=== PATIENT | male | born 1960 | race Two or more races ===

== ENCOUNTER → 2020-04-23 15:19 | Outpatient (BNVA) | payer MEDICARE, MEDICAID, SELFPAY | PROVIDERS: PCP Internal Medicine; Referring Provider Internal Medicine; Visit Provider Surgery | DX: Z76.89 Persons encountering health services in other specified circumstances (principal) ==

== ENCOUNTER 2020-05-19 16:01 | Outpatient (REF) | payer MEDICARE, MEDICAID, SELFPAY ==
[2020-05-19 16:33] LABS: MANUAL DIFF FLAG NO
[2020-05-19 16:39] LABS: Basophils Absolute Auto 0.1 X10*3/uL (0.0-0.2); Basophils Percent Auto 1.2 % (0-2); Eosinophils Absolute Auto 0.7 X10*3/uL (0.0-0.4); Eosinophils Percent Auto 7.8 % (0-4); Hematocrit 40.2 % (42-52); Hemoglobin 13.4 g/dl (14.0-18.0); Imm Gran Abs Auto 0.03 X10*3/uL (0.00-0.03); Imm Gran Pct Auto 0.4 % (0.0-0.4); Lymphocytes Absolute Auto 2.5 X10*3/uL (1.2-4.9); Lymphocytes Percent Auto 30.2 % (20-40); Mean Corpuscular HGB Conc 33.3 g/dl (31.0-36.0); Mean Corpuscular Hemoglobin 29.4 pg (27.0-33.0); Mean Corpuscular Volume 88.2 fL (80-98); Mean Platelet Volume 10.6 fL (9.4-12.4); Monocytes Absolute Auto 0.6 X10*3/uL (0.1-1.2); Monocytes Percent Auto 7.5 % (2-11); Neutrophils Absolute Auto 4.4 X10*3/uL (2.0-8.3); Neutrophils Percent Auto 52.9 % (45-73); Platelet Count 241 X10*3/uL (160-400); Red Blood Count 4.56 X10*6/uL (4.60-5.80); Red Cell Distribution Width 11.3 % (11.0-16.0); White Blood Count 8.4 X10*3/uL (4.8-10.8)
[2020-05-19 17:02] LABS: Anion Gap 11 (12-20); Blood Urea Nitrogen 10 mg/dL (9-16); Calcium 9.8 mg/dL (8.4-10.2); Carbon Dioxide 28 mmol/L (22-29); Chloride 104 mmol/L (96-108); Estimated Glomerular Filt Rate > 60; Glucose Random 98 mg/dL (60-115); Potassium 4.3 mmol/l (3.3-5.1); Sodium 139 mmol/L (135-145)
== END 2020-05-19 16:02 | disposition home or self-care (01) ==
LOC: HO.LAB 16:01
PROVIDERS: PCP Internal Medicine; Visit Provider Internal Medicine
DX: R51.9 Headache, unspecified (principal)
CPT/HCPCS: 36415; 80048; 85025

== ENCOUNTER 2021-01-15 08:22 | Outpatient (REF) | payer MEDICARE, MEDICAID, SELFPAY ==
[2021-01-15 09:13] LABS: MANUAL DIFF FLAG NO
[2021-01-15 09:19] LABS: Basophils Absolute Auto 0.1 X10*3/uL (0.0-0.2); Basophils Percent Auto 1.5 % (0-2); Eosinophils Absolute Auto 0.7 X10*3/uL (0.0-0.4); Eosinophils Percent Auto 10.3 % (0-4); Hematocrit 38.8 % (42-52); Hemoglobin 13.3 g/dl (14.0-18.0); Imm Gran Abs Auto 0.03 X10*3/uL (0.00-0.03); Imm Gran Pct Auto 0.4 % (0.0-0.4); Lymphocytes Absolute Auto 2.2 X10*3/uL (1.2-4.9); Mean Corpuscular HGB Conc 34.3 g/dl (31.0-36.0); Mean Corpuscular Volume 87.4 fL (80-98); Monocytes Absolute Auto 0.5 X10*3/uL (0.1-1.2); Monocytes Percent Auto 7.9 % (2-11); Neutrophils Absolute Auto 3.1 X10*3/uL (2.0-8.3); Neutrophils Percent Auto 46.9 % (45-73); Platelet Count 238 X10*3/uL (160-400); Red Blood Count 4.44 X10*6/uL (4.60-5.80); Red Cell Distribution Width 11.4 % (11.0-16.0); White Blood Count 6.7 X10*3/uL (4.8-10.8)
[2021-01-15 09:36] LABS: Alanine Aminotransferase 16 U/L (0-40); Albumin Level 4.5 g/dL (3.5-5.0); Alkaline Phosphatase 69 U/L (39-117); Anion Gap 11 (12-20); Aspartate Amino Transferase 21 U/L (5-37); Bilirubin Total 0.5 mg/dL (0.0-1.0); Blood Urea Nitrogen 12 mg/dL (9-16); Calcium 10.1 mg/dL (8.4-10.2); Carbon Dioxide 27 mmol/L (22-29); Chloride 105 mmol/L (96-108); Cholesterol 210 mg/dL; Estimated Glomerular Filt Rate > 60; Glucose Fasting 107 mg/dL (60-99); HDL Cholesterol 44 mg/dL; LDL Cholesterol Calculated 138 mg/dl; Potassium 4.7 mmol/L (3.3-5.1); Sodium 138 mmol/L (135-145); Total Protein 7.5 g/dL (6.5-8.0); Triglycerides 142 mg/dL
[2021-01-15 09:58] LABS: Thyroid Stimulating Hormone 0.25 uIU/mL (0.32-4.0)
[2021-01-15 10:07] LABS: Erythrocyte Sedimentation Rate 12 MM/HR (0-15)
== END 2021-01-15 08:23 | disposition home or self-care (01) ==
LOC: HO.LAB 08:22
PROVIDERS: PCP Internal Medicine; Visit Provider Internal Medicine
DX: Z00.00 Encounter for general adult medical examination without abnormal findings (principal); E03.9 Hypothyroidism, unspecified; R53.83 Other fatigue; E11.9 Type 2 diabetes mellitus without complications
CPT/HCPCS: 36415; 80053; 80061; 84443; 85025; 85652

== ENCOUNTER 2021-03-16 10:14 | Outpatient (REF) | payer MEDICARE, MEDICAID, SELFPAY ==
[2021-03-16 12:02] LABS: Prostate Specific Antigen 0.57 ng/mL (<0.05-4.0)
== END 2021-03-16 10:15 | disposition home or self-care (01) ==
LOC: HO.LAB 10:14
PROVIDERS: PCP Internal Medicine; Visit Provider Nurse Practitioner Family
DX: Z12.5 Encounter for screening for malignant neoplasm of prostate (principal)
CPT/HCPCS: 36415; 84153

== ENCOUNTER 2021-03-22 11:51 | Outpatient (REF) | payer MEDICARE, MEDICAID, SELFPAY ==
--- NOTE | ~2021-03-22 | XR_ITS ---
EXAMINATION: XR KNEE, RIGHT XR KNEE, LEFT CLINICAL INFORMATION: Right and left knee pain. COMPARISON: Bilateral knee radiographs dated 08/17/2018. TECHNIQUE: AP and lateral views of the right and left knee. FINDINGS: Right knee: Mild medial compartment joint space narrowing. Tiny lateral compartment marginal osteophytes. No osseous erosion. No fracture or dislocation. No significant joint effusion. Left knee: Mild medial compartment joint space narrowing. Tiny patellofemoral and lateral compartment marginal osteophytes. No osseous erosion. No fracture or dislocation. No significant joint effusion. XR/XR knee LT 2V IMPRESSION: Right knee: Mild medial and lateral compartment osteoarthritis, unchanged. Left knee: Mild tricompartmental osteoarthritis, unchanged.
--- NOTE | ~2021-03-22 | XR_ITS ---
EXAMINATION: XR KNEE, RIGHT XR KNEE, LEFT CLINICAL INFORMATION: Right and left knee pain. COMPARISON: Bilateral knee radiographs dated 08/17/2018. TECHNIQUE: AP and lateral views of the right and left knee. FINDINGS: Right knee: Mild medial compartment joint space narrowing. Tiny lateral compartment marginal osteophytes. No osseous erosion. No fracture or dislocation. No significant joint effusion. Left knee: Mild medial compartment joint space narrowing. Tiny patellofemoral and lateral compartment marginal osteophytes. No osseous erosion. No fracture or dislocation. No significant joint effusion. XR/XR knee RT 2V IMPRESSION: Right knee: Mild medial and lateral compartment osteoarthritis, unchanged. Left knee: Mild tricompartmental osteoarthritis, unchanged.
== END 2021-03-22 11:52 | disposition home or self-care (01) ==
LOC: HO.XRAY 11:51
PROVIDERS: PCP Internal Medicine; Visit Provider Internal Medicine
DX: M25.561 Pain in right knee (principal); M25.562 Pain in left knee
CPT/HCPCS: 73560

== ENCOUNTER → 2021-04-20 14:57 | Outpatient (BNVA) | payer MEDICARE, MEDICAID, SELFPAY | PROVIDERS: PCP Internal Medicine; Visit Provider Nurse Practitioner Family ==

== ENCOUNTER → 2021-05-19 14:56 | Outpatient (BNVA) | payer MEDICARE, MEDICAID, SELFPAY | PROVIDERS: PCP Internal Medicine; Referring Provider Internal Medicine; Visit Provider Nurse Practitioner Family | DX: K59.04 Chronic idiopathic constipation (principal); K21.9 Gastro-esophageal reflux disease without esophagitis; R10.32 Left lower quadrant pain | CPT/HCPCS: 99212 ==

== ENCOUNTER → 2021-08-18 15:13 | Outpatient (BNVA) | payer MEDICARE, MEDICAID, SELFPAY | PROVIDERS: PCP Internal Medicine; Referring Provider Internal Medicine; Visit Provider Nurse Practitioner Family | DX: K21.9 Gastro-esophageal reflux disease without esophagitis (principal); K58.9 Irritable bowel syndrome, unspecified; R10.32 Left lower quadrant pain | CPT/HCPCS: 99212 ==

== ENCOUNTER 2021-08-23 15:05 | Outpatient (REF) | payer MEDICARE, MEDICAID, SELFPAY ==
--- NOTE | ~2021-08-23 | XR_ITS ---
EXAMINATION: XR SHOULDER, RIGHT CLINICAL INFORMATION: Pain COMPARISON: Previous x-ray August 2013 TECHNIQUE: AP external rotation, Grashey, scapular Y, and axillary views of the right shoulder. FINDINGS: Bone alignment is normal. No fracture or dislocation is seen. The glenohumeral joint is normal. There is arthritis at the acromial clavicular joint. Soft tissues are normal. XR/XR shoulder RT min 2V IMPRESSION: Arthritis at the acromioclavicular joint.
== END 2021-08-23 15:06 | disposition home or self-care (01) ==
LOC: HO.XRAY 15:05
PROVIDERS: PCP Internal Medicine; Visit Provider Internal Medicine
DX: M25.511 Pain in right shoulder (principal)
CPT/HCPCS: 73030

== ENCOUNTER 2021-11-29 15:07 | Outpatient (REF) | payer MEDICARE, MEDICAID, SELFPAY ==
--- NOTE | ~2021-11-29 | XR_ITS ---
EXAMINATION: XR SHOULDER, LEFT CLINICAL INFORMATION: Pain. COMPARISON: None TECHNIQUE: AP external rotation, Grashey, scapular Y, and axillary views of the left shoulder. FINDINGS: The left glenohumeral joint space is maintained normal. There is mild loss of left AC joint space without bony erosive changes. There are no loose bodies or soft tissue swelling. XR/XR shoulder LT min 2V IMPRESSION: Mild degenerative changes left AC joint. No visible acute fracture or dislocation.
== END 2021-11-29 15:08 | disposition home or self-care (01) ==
LOC: HO.XRAY 15:07
PROVIDERS: PCP Internal Medicine; Visit Provider Nurse Practitioner Acute Care
DX: M25.512 Pain in left shoulder (principal)
CPT/HCPCS: 73030

== ENCOUNTER 2021-12-21 16:06 | Outpatient (REF) | payer MEDICARE, MEDICAID, SELFPAY ==
[2021-12-21 17:46] LABS: Alanine Aminotransferase 14 U/L (0-40); Albumin Level 4.4 g/dL (3.5-5.0); Alkaline Phosphatase 73 U/L (39-117); Anion Gap 12 (12-20); Aspartate Amino Transferase 18 U/L (5-37); Bilirubin Total 0.6 mg/dL (0.0-1.0); Blood Urea Nitrogen 7 mg/dL (9-16); Calcium 10.2 mg/dL (8.4-10.2); Carbon Dioxide 25 mmol/L (22-29); Chloride 107 mmol/L (96-108); Cholesterol 194 mg/dL; Estimated Glomerular Filt Rate > 60; Glucose Fasting 82 mg/dL (60-99); HDL Cholesterol 41 mg/dL; LDL Cholesterol Calculated 118 mg/dl; Potassium 4.2 mmol/L (3.3-5.1); Sodium 140 mmol/L (135-145); Total Protein 7.9 g/dL (6.5-8.0); Triglycerides 176 mg/dL
[2021-12-21 18:24] LABS: Folate 5.5 ng/mL (> or = 4.0); Vitamin B12 346 pg/mL (200-900)
[2021-12-21 18:58] LABS: Free T4 (Free Thyroxine) 1.02 ng/dL (0.71-1.85)
== END 2021-12-21 16:07 | disposition home or self-care (01) ==
LOC: HO.LAB 16:06
PROVIDERS: PCP Internal Medicine; Visit Provider Nurse Practitioner Family
DX: J45.909 Unspecified asthma, uncomplicated (principal); Z13.1 Encounter for screening for diabetes mellitus; Z13.220 Encounter for screening for lipoid disorders; Z13.29 Encounter for screening for other suspected endocrine disorder; E55.9 Vitamin D deficiency, unspecified; R94.6 Abnormal results of thyroid function studies
CPT/HCPCS: 36415; 80053; 80061; 82306; 82607; 82746; 84439; 84443

== ENCOUNTER → 2021-12-24 14:41 | Outpatient (BNVA) | payer MEDICARE, MEDICAID, SELFPAY | PROVIDERS: PCP Internal Medicine; Visit Provider Nurse Practitioner Family | DX: M25.512 Pain in left shoulder (principal); M25.561 Pain in right knee; M25.562 Pain in left knee; M17.0 Bilateral primary osteoarthritis of knee; M19.019 Primary osteoarthritis, unspecified shoulder | CPT/HCPCS: 99202 ==

== ENCOUNTER 2022-01-28 14:42 | Outpatient (REF) | payer MEDICARE, MEDICAID, SELFPAY ==
[2022-01-28 17:03] LABS: Free T4 (Free Thyroxine) 1.02 ng/dL (0.71-1.85); Thyroid Stimulating Hormone 0.29 uIU/mL (0.32-4.0)
[2022-01-30 03:01] LABS: Triiodothyronine T3 Free 3.5 pg/mL (2.3-4.2)
== END 2022-01-28 14:43 | disposition home or self-care (01) ==
LOC: HO.LAB 14:42
PROVIDERS: PCP Internal Medicine; Visit Provider Internal Medicine Endocrinology, Diabetes & Metabolism
DX: R79.89 Other specified abnormal findings of blood chemistry (principal)
CPT/HCPCS: 36415; 84439; 84443; 84481; 99202

== ENCOUNTER → 2022-02-15 13:44 | Outpatient (BNVA) | payer MEDICARE, MEDICAID, SELFPAY | PROVIDERS: PCP Internal Medicine; Referring Provider Internal Medicine; Visit Provider Nurse Practitioner Family | DX: Z12.11 Encounter for screening for malignant neoplasm of colon (principal); K21.9 Gastro-esophageal reflux disease without esophagitis; R10.32 Left lower quadrant pain; D36.9 Benign neoplasm, unspecified site | CPT/HCPCS: 99212 ==

== ENCOUNTER 2022-03-01 11:00 | Outpatient (RCR) | payer MEDICARE, MEDICAID, SELFPAY ==
--- NOTE | 2022-01-14 11:44 | MHC.PT.EP ---
[facility] [place] Office [place] Office [place] Office [address] Shaniqua Calvert [address] [phone] F: [phone] F: [phone] F: [phone] F: [phone] Physical Therapy Plan of Care Date of Evaluation: Date of Surgery: NA Diagnosis: Pain in L shoulder Assessment: Amado is a 61 yo M referred to PT for pain in his left shoulder. Upon examination he presents with signs and symptoms consistent with impingement in his shoulder due to inflammation. He performs all his ADLs with modification but is unable to ride his bike or fish and has difficulty sleeping at night. His impairments include limited ROM, altered GH rhythm and strength in his L shoulder. Amado will benefit from skilled PT to address the aforementioned impairments and receive education on postural awareness. Frequency and Duration: The patient will be seen 2/week for 6 weeks Short Term Goals: Patient will report a 50% decrease in pain to allow him to sleep throughout the night in 3 weeks. Patient will be able to move shoulder through all planes of motion with a pain no more than 2/10 so as to be able to use his UE for dressing in 3 weeks. 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 Treatment Plan: Modalities to reduce pain, spasms and effusion. Manual therapy to restore motion and function. Therapeutic exercise to improve strength and flexibility. Neuromuscular re-education for posture and balance. Therapeutic activities to return to functional activities of daily living. Electronically signed by: Neetu Acosta PT DPT Please sign and return to therapist. Thank you for your referral.
--- NOTE | 2022-03-01 11:51 | MHC.PT.DC ---
[facility] [place] Office [place] Office [place] Office [address] [phone] F: [phone] F: [phone] F: [phone] F: [phone] Physical Therapy Discharge Report Diagnosis: Pain in L shoulder Date of Surgery: NA Date of Evaluation: 01/14/22 Date of Discharge: 03/01/22 Treatments to Date: 11 Cancellations to Date: No Shows to Date: Discharge Status: Achieved Goals Improved Function Independent with HEP Discharge Summary: Amado arrived stating he is doing good. He has completed 11 PT visits. He has been doing all his HEPs. He has improved significantly and has achieved all goals set for him. He is therefore being d/c from PT today. Amado is in agreement with the plan. Electronically signed by: Neetu Acosta PT DPT Please sign and return to therapist. Thank you for your referral.
== END 2022-03-01 11:51 | disposition home or self-care (01) ==
LOC: HO.PT 11:00
PROVIDERS: PCP Dermatology MOHS-Micrographic Surgery; Visit Provider Nurse Practitioner Family
DX: M25.512 Pain in left shoulder (principal)
CPT/HCPCS: 97033; 97110; 97112; 97140; 97161

== ENCOUNTER 2022-03-23 12:04 | Outpatient (REF) | payer MEDICARE, MEDICAID, SELFPAY ==
[2022-03-23 14:35] LABS: Prostate Specific Antigen Scr 0.63 ng/mL (<0.05-4.0)
== END 2022-03-23 12:05 | disposition home or self-care (01) ==
LOC: HO.LAB 12:04
PROVIDERS: PCP Internal Medicine; Visit Provider Internal Medicine
DX: Z12.5 Encounter for screening for malignant neoplasm of prostate (principal)
CPT/HCPCS: 36415; 84153

== ENCOUNTER → 2022-05-09 14:59 | Outpatient (BNVA) | payer MEDICARE, MEDICAID, SELFPAY | PROVIDERS: PCP Internal Medicine; Visit Provider Physician Assistant | DX: M19.012 Primary osteoarthritis, left shoulder (principal) | CPT/HCPCS: 20610; 99202; J1040 ==

== ENCOUNTER → 2022-05-18 09:18 | Outpatient (REF) | payer MEDICARE, MEDICAID, SELFPAY ==
--- NOTE | ~2022-05-18 | NM_ITS ---
EXAMINATION: THYROID UPTAKE AND SCAN CLINICAL INFORMATION: Low TSH. COMPARISON: No previous thyroid scan is available for comparison. TECHNIQUE: Following the oral administration of 303 microcuries of I-123 sodium iodide, thyroid uptake was performed and expressed as a percentage of the administrated dose. Gamma scintillation camera images of the thyroid in the anterior and right and left anterior oblique views were obtained using a pinhole collimator following the administration of 10 mCi Tc-99m pertechnetate. FINDINGS: The uptake is 8.3% at 2 hours and 17.5% at 24 hours (Normal radioiodine uptake at 24 hours is 10% to 30%). The radioiodine uptake is normal. The radiopertechnetate thyroid scintigram demonstrates the thyroid gland to be normal in size, shape, and position. There is homogeneous distribution of activity within the the gland with no focal abnormalities noted. The trapping function appears normal. NM/NM thyroid w uptake IMPRESSION: Normal radioiodine uptake. Normal thyroid scan.
== END ==
LOC: HO.NUCMED 09:18
PROVIDERS: PCP Internal Medicine; Visit Provider Internal Medicine Endocrinology, Diabetes & Metabolism
DX: R79.89 Other specified abnormal findings of blood chemistry (principal)
CPT/HCPCS: 78014; A9512; A9516

== ENCOUNTER 2022-06-14 08:44 | Day surgery (SDC) | payer MEDICARE, MEDICAID, SELFPAY ==
[2022-06-07 12:56] VITALS: BMI 29.1
--- NOTE | 2022-06-13 12:39 | P.CONAN_ITS ---
Documented by User: Jazmin Mccurdy NP 06/13/22 12:39 HPI - Anesthesia Eval Consult details Narrative: 61yo M for Colonoscopy PMFSH Active Problems Active Problems: All Active Problems (Updated 06/07/22 @ 12:42 by Sil Thomas RN) Asthma (Acute) Insomnia (Acute) Sleep apnea (Acute) GERD (gastroesophageal reflux disease) (Acute) Adult general medical exam (Acute) Knee pain (Acute) Abdominal pain (Acute) Shoulder pain (Acute) Tinea corporis (Acute) Left shoulder pain (Acute) Anxiety (Acute) Screening for hypothyroidism (Acute) Screening for hyperlipidemia (Acute) Screening for diabetes mellitus (Acute) Seasonal allergies (Acute) Bilateral knee pain (Acute) Osteoarthritis of knees, bilateral (Acute) Acromioclavicular joint arthritis (Acute) Low TSH level (Acute) Low vitamin D level (Acute) Right rotator cuff tendinitis (Acute) Tubular adenoma (Acute) Screening for prostate cancer (Acute) Depression (Acute) Past Medical History Medical History Asthma Depression Epidermal inclusion cyst Fatigue GERD (gastroesophageal reflux disease) Screening for prostate cancer Sleep apnea Tubular adenoma Family History Family History Father History of hypertension History of heart disease History of diabetes mellitus Mother History of skin cancer Sister History of arthritis History of colon cancer History of breast cancer Mental health disorder Son No problems noted. Daughter No problems noted. Surgical History Surgical History (Updated 06/07/22 @ 12:50 by Sil Thomas RN) History of bunionectomy History of colonoscopy (~05/2011) History of esophagogastroduodenoscopy (EGD) (~05/2011) History of excision of epidermal inclusion cyst (~04/09/20) History of hernia repair (~1990) History of left knee surgery (~04/2016) History of removal of cyst (~04/2019) Social History Social History (Updated 05/09/22 @ 15:24 by ALEXANDRIA Sarabia) Housing: Apartment Alcohol intake: never Patient Tobacco Use Status: Former Tobacco user Quit Date: age 46 Tobacco use type: Cigarette e-Cigarette/Vaping Use: Never Used Second Hand Smoke Exposure: No Use of substances other than those prescribed or required for medical reasons: No Have you been hit, kicked, punched, or otherwise hurt by someone within the past year? If so, by whom?: No Are you DNR?: No Advance Directives: No Advance Directives Information Provided: Yes (brochure mailed) Advance Directives on File: No Recently lost weight without trying: No Eating poorly because of decreased appetite: No Nutrition Risks: No Nutritional Risk service: No Current occupational status: unemployed and disabled Current occupation: left hand Cognitive needs: No Hearing needs: No Vision needs: No Meds Allergies Allergy/AdvReac Type Severity Reaction Status Date / Time Shellfish Allergy Severe ANAPHYLAXIS Verified 05/09/22 15:22 Home Medications Medication Instructions Recorded Confirmed Last Taken Type albuterol sulfate 90 mcg/actuation 2 puff inhalation Q4-6H PRN 04/20/20 06/07/22 Unknown History aerosol inhaler (Ventolin HFA) Wheezing clonazepam 0.5 mg tablet 0.5 mg PO BID 04/20/20 06/07/22 06/14/22 History clonidine HCl 0.2 mg tablet 0.2 - 0.4 mg PO BID 04/20/20 06/07/22 Unknown History omeprazole 20 mg capsule,delayed 20 mg PO BID 12/21/21 06/07/22 Unknown History release quetiapine 400 mg tablet 400 mg PO BID 12/24/21 06/07/22 Unknown History fluoxetine 20 mg capsule 40 mg PO DAILY 02/15/22 06/07/22 Unknown History ipratropium 0.5 mg-albuterol 3 mg 3 ml inhalation QID PRN wheezing 02/15/22 06/07/22 Unknown History (2.5 mg base)/3 mL nebulization soln azithromycin 250 mg tablet 250 mg PO DAILY 05/09/22 Unknown History Exam Exam Date and Time: June 13, 2022 1239 Height,Weight and Vital Signs: Height 5 ft 11 in Weight 94.801 kg Assessment and Plan Assessment Anesthesia Assessment: Chart Reviewed Documented by User: Austin Suggs MD 06/14/22 10:02 [facility] Past Medical History Medical History Asthma Depression Epidermal inclusion cyst Fatigue GERD (gastroesophageal reflux disease) Screening for prostate cancer Sleep apnea Tubular adenoma Family History Family History Father History of hypertension History of heart disease History of diabetes mellitus Mother History of skin cancer Sister History of arthritis History of colon cancer History of breast cancer Mental health disorder Son No problems noted. Daughter No problems noted. Family history of problems with anesthesia: No Surgical History Surgical History (Updated 06/07/22 @ 12:50 by Sil Thomas RN) History of bunionectomy History of colonoscopy (~05/2011) History of esophagogastroduodenoscopy (EGD) (~05/2011) History of excision of epidermal inclusion cyst (~04/09/20) History of hernia repair (~1990) History of left knee surgery (~04/2016) History of removal of cyst (~04/2019) History of Problems with Anesthesia: No Social History Social History (Updated 05/09/22 @ 15:24 by ALEXANDRIA Sarabia) Housing: Apartment Alcohol intake: never Patient Tobacco Use Status: Former Tobacco user Quit Date: age 46 Tobacco use type: Cigarette e-Cigarette/Vaping Use: Never Used Second Hand Smoke Exposure: No Use of substances other than those prescribed or required for medical reasons: No Have you been hit, kicked, punched, or otherwise hurt by someone within the past year? If so, by whom?: No Are you DNR?: No Advance Directives: No Advance Directives Information Provided: Yes (brochure mailed) Advance Directives on File: No Recently lost weight without trying: No Eating poorly because of decreased appetite: No Nutrition Risks: No Nutritional Risk service: No Current occupational status: unemployed and disabled Current occupation: left hand Cognitive needs: No Hearing needs: No Vision needs: No Meds Allergies Allergy/AdvReac Type Severity Reaction Status Date / Time Shellfish Allergy Severe ANAPHYLAXIS Verified 05/09/22 15:22 Home Medications Medication Instructions Recorded Confirmed Last Taken Type albuterol sulfate 90 mcg/actuation 2 puff inhalation Q4-6H PRN 04/20/20 06/07/22 Unknown History aerosol inhaler (Ventolin HFA) Wheezing clonazepam 0.5 mg tablet 0.5 mg PO BID 04/20/20 06/07/22 06/14/22 History clonidine HCl 0.2 mg tablet 0.2 - 0.4 mg PO BID 04/20/20 06/07/22 Unknown History omeprazole 20 mg capsule,delayed 20 mg PO BID 12/21/21 06/07/22 Unknown History release quetiapine 400 mg tablet 400 mg PO BID 12/24/21 06/07/22 Unknown History fluoxetine 20 mg capsule 40 mg PO DAILY 02/15/22 06/07/22 Unknown History ipratropium 0.5 mg-albuterol 3 mg 3 ml inhalation QID PRN wheezing 02/15/22 06/07/22 Unknown History (2.5 mg base)/3 mL nebulization soln azithromycin 250 mg tablet 250 mg PO DAILY 05/09/22 Unknown History Exam Airway Mallampati Class: II TM Dist: >3cm Neck ROM: Full Denture: Upper Partial: Lower Heart: rrr Lungs: clear Assessment and Plan Final Anesthetic Review Family History of Problems with Anesthesia: No History of Problems with Anesthesia: No NPO: Yes ASA Class: II Final Preanesthetic Review: No Changes in Pt Med Stat, Meds/Allgs Chart Reviewed, Consent Obtained/Reviewed and Anes Risks/Benef Reviewed Patient Risk: Intermediate Procedure Risk: Low Anesthetic Plan Anesthetic Plan: MAC: Disposition: Standard PACU
--- NOTE | 2022-06-14 09:06 | P.HPSUR_ITS ---
Pre-Procedural Eval Section A Date of Service: 06/14/22 Section B Chief Complaint: screening colonoscopy Relevant Family History (Specify if Yes): No Relevant Social History: None Present Medications: see Short Stay Collaborative assessment Medical History: Significant History (Asthma Depression Epidermal inclusion cyst Fatigue GERD (gastroesophageal reflux disease) Screening for prostate cancer Sleep apnea Tubular adenoma) History of Previous Operations: Relevant previous surgery/procedure and date(s) (History of bunionectomy History of colonoscopy (~05/2011) History of eso phagogastroduodenoscopy (EGD) (~05/2011) History of excision of epidermal inclusion cyst (~04/09/20) History of hernia repair (~1990) History of left knee surgery (~04/2016) History of removal of cyst (~04/2019)) Allergies: Allergies Allergy/AdvReac Type Severity Reaction Status Date / Time Shellfish Allergy Severe ANAPHYLAXIS Verified 05/09/22 15:22 Review of Systems Sugical H&P ROS: Negative: Constitution, Cardiovascular, Respiratory, Neurological, Psychiatric, Hem-Onc, Allergic/Immunologic, Gastrointestinal, Genitourinary, Musculoskeletal, Integumentary, Endocrine and Eyes/Ears/Nose/Throat Exam Surgical H&P Exam: Normal: HEENT, Normal: Heart, Normal: Lungs, Normal: Extremities, Normal: Abdomen, Normal: Skin and Normal: Neurological Plan Diagnosis/Plan: Unchanged I have reviewed the history and physical and performed a pertinent physical examination on my patient. No changes have occurred unless specified.
[2022-06-14 09:09] VITALS: BP 120/71; PULSE 62; RESP 16; TEMP 36.3; O2SAT 95
[2022-06-14] MEDS: Lactated Ringers 1,000 ML 100 ML IVCONT (09:22)
[2022-06-14] MEDS: Albuterol Sulfate (0.083%) 2.5 MG/3 ML VIAL.NEB INHALE (09:26)
[2022-06-14 09:27] VITALS: PULSE 65; RESP 16; O2SAT 97
--- NOTE | 2022-06-14 09:52 | W.PM.OPN ---
Operative Note Operative Note Date of Service: 06/14/22 Narrative: Operative Information Procedure Description: Colonoscopy Indication: screening Anesthesia: MAC COLONOSCOPY Instrument: Olympus variable stiffness ADULT scope 190L Colonoscopy Monitoring: Vital signs and clinical assessment, continuous EKG monitoring, Pulse oximetry, Carbon Dioxide monitoring and blood pressure monitoring were done throughout the procedure. Colon withdrawal time was 10 minutes. Procedure: The patient was placed in the left lateral decubitis position and pre-procedure medications were administered. After a digital rectal examination of the ano-rectum, the video colonoscope was inserted into the rectum and advanced through the colon to the cecum/TI. The colonoscope was slowly withdrawn in a retrograde panoramic fashion and the colon mucosa was carefully examined including a retroflexed view of the rectum. Findings and interventions are described below. Procedure Difficulty: moderate due to looping, pressure applied Findings: Terminal Ileum-not intubated Cecum:normal Ascending Colon: normal Transverse Colon - x2 sessile polyps 10-11 mm removed with cold snare Descending Colon:normal Sigmoid Colon: diverticulosis with luminal narrowing, and hypertrophy Rectum: Retroflexion with small internal hemorrhoids, grade I Anorectum - normal Colon preparation: Patterson Bowel Preparation Scale Right colon; 1 Transverse colon: 2 Left colon; 1-2 (0 = Unprepared colon segment with mucosa not seen due to solid stool that cannot be cleared. 1 = Portion of mucosa of the colon segment seen, but other areas of the colon segment not well seen due to staining, residual stool and/or opaque liquid. 2 = Minor amount of residual staining, small fragments of stool and/or opaque liquid, but mucosa of colon segment seen well. 3 = Entire mucosa of colon segment seen well with no residual staining, small fragments of stool or opaque liquid) Impression and Post Procedure Diagnosis: polyps internal hemorrhoids diverticular disease Plan: High fiber diet leaflet Avoid straining at stool, epsom salts and sitz bath, anusol supps or cream Repeat Colonoscopy in 3-4 years or earlier if clinically indicated he has been having some left sided abdominal pain, may be due to diverticulosis, advice as above Above findings were reviewed with the patient and relevant handouts were provided if indicated.
[2022-06-14 10:36] VITALS: BP 113/70; PULSE 84; RESP 16; TEMP 36.8; O2SAT 94
[2022-06-14 10:51] VITALS: BP 122/70; PULSE 64; RESP 18; TEMP 36.8; O2SAT 94
== END 2022-06-14 11:29 | disposition home or self-care (01) ==
PROVIDERS: PCP Internal Medicine; Visit Provider Internal Medicine Gastroenterology
PROC: 0DJD8ZZ Inspection of Lower Intestinal Tract, Via Natural or Artificial Opening Endoscopic (ICD-10-PCS; CPT 45378; principal; 2022-06-14 10:20)
DX: Z12.11 Encounter for screening for malignant neoplasm of colon (principal); D12.3 Benign neoplasm of transverse colon; K57.30 Diverticulosis of large intestine without perforation or abscess without bleeding; K56.2 Volvulus; K64.0 First degree hemorrhoids; Z86.010 Personal history of colon polyps; R10.32 Left lower quadrant pain; J45.909 Unspecified asthma, uncomplicated; K58.9 Irritable bowel syndrome, unspecified; K21.9 Gastro-esophageal reflux disease without esophagitis; Z79.899 Other long term (current) drug therapy
CPT/HCPCS: 45385; 88305; 94640

== ENCOUNTER → 2022-06-28 09:48 | Outpatient (BNVA) | payer MEDICARE, MEDICAID, SELFPAY | PROVIDERS: PCP Internal Medicine; Visit Provider Nurse Practitioner Family | DX: D12.3 Benign neoplasm of transverse colon (principal); K57.90 Diverticulosis of intestine, part unspecified, without perforation or abscess without bleeding; K21.9 Gastro-esophageal reflux disease without esophagitis | CPT/HCPCS: 99212 ==

== ENCOUNTER 2022-09-13 10:18 | Outpatient (REF) | payer MEDICARE, MEDICAID, SELFPAY ==
[2022-09-13 10:44] LABS: MANUAL DIFF FLAG NO
[2022-09-13 11:04] LABS: Basophils Absolute Auto 0.1 X10*3/uL (0.0-0.2); Basophils Percent Auto 1.6 % (0-2); Eosinophils Absolute Auto 0.5 X10*3/uL (0.0-0.4); Eosinophils Percent Auto 7.4 % (0-4); Hematocrit 39.9 % (42.0-52.0); Hemoglobin 13.4 g/dl (14.0-18.0); Imm Gran Abs Auto 0.02 X10*3/uL (0.00-0.03); Imm Gran Pct Auto 0.3 % (0.0-0.4); Lymphocytes Absolute Auto 1.8 X10*3/uL (1.2-4.9); Lymphocytes Percent Auto 25.9 % (20-40); Mean Corpuscular HGB Conc 33.6 g/dl (31.0-36.0); Mean Corpuscular Hemoglobin 28.8 pg (27.0-33.0); Mean Corpuscular Volume 85.8 fL (80.0-98.0); Mean Platelet Volume 10.3 fL (9.4-12.4); Monocytes Absolute Auto 0.6 X10*3/uL (0.1-1.2); Neutrophils Absolute Auto 3.9 x10*3/uL (2.0-8.3); Neutrophils Percent Auto 55.8 % (45-73); Platelet Count 255 X10*3/uL (160-400); Red Blood Count 4.65 X10*6/uL (4.60-5.80); Red Cell Distribution Width 11.5 % (11.0-16.0); White Blood Count 6.9 X10*3/uL (4.8-10.8)
[2022-09-13 11:51] LABS: Alanine Aminotransferase 15 U/L (0-40); Albumin Level 4.2 g/dL (3.5-5.0); Alkaline Phosphatase 72 U/L (39-117); Anion Gap 9 (12-20); Aspartate Amino Transferase 17 U/L (5-37); Bilirubin Total 0.6 mg/dL (0.0-1.0); Blood Urea Nitrogen 10 mg/dL (9-16); Calcium 9.9 mg/dL (8.4-10.2); Carbon Dioxide 27 mmol/L (22-29); Chloride 106 mmol/L (96-108); Cholesterol 192 mg/dL; Estimated Glomerular Filt Rate > 60; Glucose Fasting 97 mg/dL (60-99); HDL Cholesterol 36 mg/dL; LDL Cholesterol Calculated 131 mg/dl; Potassium 4.4 mmol/L (3.3-5.1); Sodium 138 mmol/L (135-145); Total Protein 7.4 g/dL (6.5-8.0); Triglycerides 127 mg/dL
[2022-09-13 11:52] LABS: Vitamin D 25-OH Total 30.9 ng/mL (>30)
[2022-09-13 12:10] LABS: Prostate Specific Antigen Scr 0.41 ng/mL (<0.05-4.0); Thyroid Stimulating Hormone 0.25 uIU/mL (0.32-4.0)
== END 2022-09-13 10:19 | disposition home or self-care (01) ==
LOC: HO.LAB 10:18
PROVIDERS: Nurse Practitioner Family; PCP Internal Medicine; Visit Provider Internal Medicine
DX: Z00.00 Encounter for general adult medical examination without abnormal findings (principal); Z12.5 Encounter for screening for malignant neoplasm of prostate; N28.9 Disorder of kidney and ureter, unspecified; D64.9 Anemia, unspecified; E78.5 Hyperlipidemia, unspecified; R79.89 Other specified abnormal findings of blood chemistry; E03.9 Hypothyroidism, unspecified
CPT/HCPCS: 36415; 80053; 80061; 82306; 84153; 84443; 85025

== ENCOUNTER → 2022-09-22 09:32 | Outpatient (BNVA) | payer MEDICARE, MEDICAID, SELFPAY | PROVIDERS: PCP Internal Medicine; Visit Provider Nurse Practitioner Family | DX: N52.9 Male erectile dysfunction, unspecified (principal); R35.1 Nocturia; R68.82 Decreased libido | CPT/HCPCS: 51798; 99202 ==

== ENCOUNTER → 2022-10-18 12:54 | Outpatient (BNVA) | payer MEDICARE, MEDICAID, SELFPAY | PROVIDERS: PCP Internal Medicine; Visit Provider Nurse Practitioner Family | DX: K21.9 Gastro-esophageal reflux disease without esophagitis (principal); K59.01 Slow transit constipation | CPT/HCPCS: 99212 ==

== ENCOUNTER 2022-11-21 10:24 | Outpatient (REF) | payer MEDICARE, MEDICAID, SELFPAY ==
--- NOTE | ~2022-11-21 | US_ITS ---
EXAMINATION: US RETROPERITONEAL COMPLETE (RENAL) CLINICAL INFORMATION: Nocturia. COMPARISON: Ultrasound retroperitoneal limited (renal only) 09/25/2018. TECHNIQUE: Real-time imaging of the kidneys and bladder. FINDINGS: RIGHT KIDNEY: 9.8 x 6.4 x 6.3 cm (SAG x AP x TRV). The kidney is normal in size, contour, and echogenicity. Renal cortical thickness is normal. No renal calculi or hydronephrosis. 2.4 cm benign-appearing renal cyst, no follow-up imaging recommended. LEFT KIDNEY: 10.7 x 6.5 x 6.1 cm (SAG x AP x TRV). The kidney is normal in size, contour, and echogenicity. Renal cortical thickness is normal. No renal calculi or hydronephrosis. Benign appearing renal cysts measuring up to 2.7 cm, no follow-up imaging recommended. BLADDER: Well distended and normal. Bilateral ureteral jets are demonstrated. Prevoid bladder volume is 291.1 mL. Postvoid bladder volume is 45.3 mL. ADDITIONAL FINDINGS: Prostate is enlarged post void residual 56.6 mL. US/US retroperitoneal comp IMPRESSION: 1. Prostatomegaly. 2. Benign-appearing bilateral renal cysts measuring up to 2.7 cm, no follow-up imaging recommended. 3. Post void bladder residual of 45.3 mL.
== END 2022-11-21 10:25 | disposition home or self-care (01) ==
LOC: HO.US 10:24
PROVIDERS: PCP Internal Medicine; Visit Provider Nurse Practitioner Family
DX: R35.1 Nocturia (principal)
CPT/HCPCS: 76770

== ENCOUNTER → 2022-12-02 10:10 | Outpatient (BNVA) | payer MEDICARE, MEDICAID, SELFPAY | PROVIDERS: PCP Internal Medicine; Visit Provider Nurse Practitioner Family | DX: R35.1 Nocturia (principal); R68.82 Decreased libido; N52.9 Male erectile dysfunction, unspecified | CPT/HCPCS: 51798; 99212 ==

== ENCOUNTER 2022-12-05 09:25 | Outpatient (REF) | payer MEDICARE, MEDICAID, SELFPAY ==
[2022-12-10 16:24] LABS: Testosterone, Free 52.9 pg/mL (35.0-155.0); Testosterone, Total 401 ng/dL (250-1100)
== END 2022-12-05 09:26 | disposition home or self-care (01) ==
LOC: HO.LAB 09:25
PROVIDERS: PCP Internal Medicine; Visit Provider Nurse Practitioner Family
DX: R68.82 Decreased libido (principal)
CPT/HCPCS: 36415; 84402; 84403

== ENCOUNTER 2023-01-03 09:15 | Outpatient (AMB) | payer MEDICARE, MEDICAID, SELFPAY ==
--- NOTE | 2023-01-03 09:19 | A.OFFVIS_ITS ---
Intake Intake Visit Reasons: Testosterone Labs- follow up(set) Intake Note: Patient is present for follow up erectile dysfunction/testosterone labs (total testosterone 401) (Free Testosterone 52.9) Urology Medications: tamsulosin Blood Thinner: none Supervisor Airplane Flight Attendant Required: No Accompanied by: Self / Same As Patient Allergies shellfish derived Allergy (Severe, Verified 01/03/23 20:51) Anaphylaxis Medication List - Last Reconciled 01/03/23 by FLYNN GuerreroP- albuterol sulfate 90 mcg/actuation (Ventolin HFA) 2 puffs inhalation Q4-6H PRN cholecalciferol (vitamin D3) 25 mcg PO DAILY clonazepam 0.5 mg PO BID clonidine HCl 0.2 - 0.4 mg PO BID diclofenac sodium 1% (Arthritis Pain (diclofenac)) 4 grams topical QID fluoxetine 40 mg PO DAILY ibuprofen 800 mg (2 x 400 mg) PO Q8H PRN ipratropium-albuterol 0.5 mg-3 mg(2.5 mg base)/3 mL 3 mL inhalation QID PRN omeprazole 20 mg PO BID quetiapine 400 mg PO BID tadalafil (Cialis) 5 mg PO DAILY 90 days tamsulosin 0.4 mg PO BEDTIME 90 days umeclidinium 62.5 mcg/actuation (Incruse Ellipta) 1 inh inhalation DAILY HPI HPI Comments History of Present Illness Details Amado is a pleasant 61-year-old Maldivian-speaking patient of Dr. Colunga. He presents to the office today for follow-up. Of note, patient was seen approximately 1 month ago at which time testosterone and free testosterone was ordered for further assessment evaluation. The patient's follow-up regarding these results today. Total Testosterone 401 and free testosterone 52.9. When asked patient reports he continues with symptoms of erectile dysfunction. He discusses he continues with low libido, unable to obtain and or maintain erections. Discussed at length importance of adequate sleep, healthy eating habits, daily exercise/brisk walking daily and maintaining healthy weight. Discuss treatment options to include oral agents verses injectable. Discussed risks and benefits of both treatment options. He otherwise offers no issues or concerns at this time. He reports significant improvement in nocturia with compliance of 0.4 mg of Flomax daily. He denies urinary urgency, urinary frequency, incontinence, hematuria, changes to urinary stream, dysuria, foul- smelling urine, flank pain, fever, and or chills. PSA's are as follows: 03/14--0.6 09/15--0.4 PFSH Medical History Abdominal pain Asthma Depression Epidermal inclusion cyst Fatigue GERD (gastroesophageal reflux disease) Screening for prostate cancer Sleep apnea Tubular adenoma Surgical History History of bunionectomy History of colonoscopy (~05/2011) History of esophagogastroduodenoscopy (EGD) (~05/2011) History of excision of epidermal inclusion cyst (~04/09/20) History of hernia repair (~1990) History of left knee surgery (~04/2016) History of removal of cyst (~04/2019) Family History Father History of hypertension History of heart disease History of diabetes mellitus Mother History of skin cancer Sister History of arthritis History of colon cancer History of breast cancer Mental health disorder Son No problems noted. Daughter No problems noted. Social History Housing: Apartment Alcohol intake: never Patient Tobacco Use Status: Former Tobacco user Quit Date: age 46 Tobacco use type: Cigarette e-Cigarette/Vaping Use: Never Used Second Hand Smoke Exposure: No service: No Current occupational status: unemployed and disabled Current occupation: left hand Cognitive needs: No Hearing needs: No Vision needs: No Review of Systems Const Reports as per HPI Eyes Reports no additional complaints ENT Reports no additional complaints Card Reports no additional complaints Resp Reports no additional complaints GI Reports no additional complaints Reports as per HPI Musc Reports no additional complaints Neuro Reports no additional complaints Psych Reports no additional complaints Endo Reports no additional complaints Brent/Lymph Reports no additional complaints Aller/Immun Reports no additional complaints Physical Exam Const General: cooperative, healthy appearing, comfortable, no acute distress, well developed, alert and awake Nutritional Appearance: average body habitus Orientation/consciousness: patient oriented x3 Limitations: no limitations HEENT Head: Yes normal to inspection, Yes normocephalic and Yes atraumatic Ears: hearing grossly normal bilaterally Eyes General: appearance normal, both eyes and all related structures Neck Neck: Yes normal visual inspection and Yes trachea midline Chest Chest palpation & inspection: normal inspection of the chest Resp Effort & Inspection: normal respiratory effort and able to speak in complete sentences Cardio Rate: regular rate GI Inspection: Yes normal to inspection General: Yes no CVA tenderness Back/Spine/Pelvis Back: no CVA tenderness Skin General skin exam: no rashes or lesions noted Neuro General: patient oriented x3 Extrem General: Yes normal to inspection Psych Appearance: grossly normal and well kempt Mental Status: mental status grossly normal Speech and movement: Normal speech and movement present and Clear speech present Affect: normal affect Attitude: cooperative Thought process: Normal thought process present Thought content: Normal thought content present Assessment & Plan Assessment & Plan (1) Erectile dysfunction: Code(s): N52.9 - Male erectile dysfunction, unspecified (2) Nocturia: Code(s): R35.1 - Nocturia (3) Low libido: Code(s): R68.82 - Decreased libido (4) Renal cyst: Code(s): N28.1 - Cyst of kidney, acquired Plan Recent testosterone and free testosterone lab values reviewed with the patient today; as noted above. Discussed at length importance of lifestyle modifications to assist with low libido, obtaining and maintaining erections. Discussed risks and benefits of oral agents verses injectables for treatment of erectile dysfunction. Continue Flomax as patient reports this to be working extremely well for his nocturia. Start Cialis 5 mg daily. Discussed additional p.r.n. dose for on demand; sexual activity. Follow-up in 3 months for further assessment evaluation; or sooner with any issues, concerns, and or questions. Orders: Orders AMB Urinalysis Automated Today Z13.9 - Encounter for screening, unspecified Medications: New tadalafil (Cialis) NORMA N [facility] DR33 [id number] 5 mg PO DAILY 90 days 90 tabs 1RF Patient Instructions: The patient had an opportunity to ask questions regarding the treatment plan. All questions were answered. Physical exam, labs, and imaging were discussed and reviewed in detail. As well as risks, benefits, and discussion of treatment choices. No major barriers to understanding were identified. The patient expressed understanding and agreement with the above treatment plan. The patient was made aware they should contact our office by phone for worsening of their current condition, the appearance of new symptoms, or with any questions or concerns. Compliance is encouraged with any medications and follow up testing that is ordered. It is a privilege to be allowed the opportunity to participate in? your urological care.? Again, if you have any questions or concerns If you have any questions or concerns please do not hesitate to contact me. The office is [phone]. This note is constructed using voice recognition software. While every effort has been made to ensure accuracy journeyman painter errors may have been included. Yours sincerely, YARITZA Guerrero Coding Level of Care Code Est Pt Level 4 (46586) Diagnoses Erectile dysfunction N52.9 Nocturia R35.1 Low libido R68.82 Renal cyst N28.1
== END 2023-01-03 09:37 | disposition home or self-care (01) ==
LOC: HO.HUSH 09:15
PROVIDERS: PCP Internal Medicine; Visit Provider Nurse Practitioner Family
DX: Z13.9 Encounter for screening, unspecified (principal)
CPT/HCPCS: 99214

== ENCOUNTER → 2023-01-03 09:15 | Outpatient (BNVA) | payer MEDICARE, MEDICAID, SELFPAY | PROVIDERS: PCP Internal Medicine; Visit Provider Nurse Practitioner Family | DX: N52.9 Male erectile dysfunction, unspecified (principal); R35.1 Nocturia; R68.82 Decreased libido; N28.1 Cyst of kidney, acquired | CPT/HCPCS: 81003; 99212 ==

== ENCOUNTER 2023-03-06 13:53 | Outpatient (AMB) | payer MEDICARE, MEDICAID, SELFPAY ==
--- NOTE | 2023-03-06 13:56 | MHC.PC.OV ---
Vital Signs 03/06/23 13:57 Height 5 ft 11 in Weight 203 lb 2 oz BMI 28.3 BP 122/72 Blood Pressure Location Lt brachial Position Sitting Pulse 66 Pulse Source Pulse Oximeter Pulse Oximetry (%) 95 Oxygen Delivery Method Room Air Intake Visit Reasons: Pain in Throat/Bones Intake Note: Patient is here today for pain in the throat and bones. Difficulty and burning sensation when swallowing. Director Of Cloud Services Required: No Pipeline Maintenance Supervisor: Not Required per policy Accompanied by: Self / Same As Patient Allergies shellfish derived Allergy (Severe, Verified 03/06/23 13:57) Anaphylaxis Medication List - Last Reconciled 03/06/23 by Getachew Colunga MD albuterol sulfate 90 mcg/actuation (Ventolin HFA) 2 puffs inhalation Q4-6H PRN cholecalciferol (vitamin D3) 25 mcg PO DAILY clonazepam 0.5 mg PO BID clonidine HCl 0.2 - 0.4 mg PO BID diclofenac sodium 1% (Arthritis Pain (diclofenac)) 4 grams topical QID fluoxetine 40 mg PO DAILY ibuprofen 800 mg (2 x 400 mg) PO Q8H PRN ipratropium-albuterol 0.5 mg-3 mg(2.5 mg base)/3 mL 3 mL inhalation QID PRN omeprazole 20 mg PO BID quetiapine 400 mg PO BID tadalafil (Cialis) 5 mg PO DAILY 90 days tamsulosin 0.4 mg PO BEDTIME 90 days umeclidinium 62.5 mcg/actuation (Incruse Ellipta) 1 inh inhalation DAILY Tobacco use date assessed: 03/06/23 Dental Screening Dental Screen Date: 03/06/23 Did you have a dental visit in the last 12 months?: No Did you have a dental problem in the last 6 months where you did not have access to dental care?: No Was dental information given to patient?: Patient has dentist HPI Pain in Throat/Bones HPI Details sore throat for a week PFSH Medical History Abdominal pain Asthma Depression Epidermal inclusion cyst Fatigue GERD (gastroesophageal reflux disease) Screening for prostate cancer Sleep apnea Tubular adenoma Surgical History History of bunionectomy History of colonoscopy (~05/2011) History of esophagogastroduodenoscopy (EGD) (~05/2011) History of excision of epidermal inclusion cyst (~04/09/20) History of hernia repair (~1990) History of left knee surgery (~04/2016) History of removal of cyst (~04/2019) Family History Father History of hypertension History of heart disease History of diabetes mellitus Mother History of skin cancer Sister History of arthritis History of colon cancer History of breast cancer Mental health disorder Son No problems noted. Daughter No problems noted. Social History Housing: Apartment Alcohol intake: never Patient Tobacco Use Status: Former Tobacco user Quit Date: age 46 Tobacco use type: Cigarette e-Cigarette/Vaping Use: Never Used Second Hand Smoke Exposure: No service: No Current occupational status: unemployed and disabled Current occupation: left hand Cognitive needs: No Hearing needs: No Vision needs: No Questionnaire Thrive Questionnaire Date Thrive assessed: 09/13/22 GUS-7 AMB Questionnaire GUS-7 Date GUS - 7 assessed: 09/13/22 Source: Developed by Drs. Red Duggan, Ashley Jhaveri, Humberto Barreto and colleagues, with an educational waylon from [employer]. Review of Systems Const Denies chills, Denies headache(s) and Denies weight loss ENT Denies headache(s) Card Denies chest pain, Denies syncope, Denies irregular heart rhythm and Denies dyspnea Resp Denies chest congestion, Denies cough and Denies dyspnea GI Denies abdominal pain, Denies change in stool character, Denies nausea and Denies vomiting Musc Denies deformity and Denies joint swelling Neuro Denies syncope and Denies headache(s) Physical exam (Primary Care) Vital Signs: Last Vital Signs Pulse 66 03/06/23 13:57 BP 122/72 03/06/23 13:57 Pulse Ox 95 03/06/23 13:57 Oxygen Delivery Method Room Air 03/06/23 13:57 BMI result Body Mass Index 28.3 Tobacco/Smoking Status: Tobacco use Status Tobacco use date assessed 03/06/23 03/06/23 14:02 Patient Tobacco Use Status Former Tobacco user 03/06/23 14:02 Tobacco use type Cigarette 03/06/23 14:02 e-Cigarette/Vaping Use Never Used 03/06/23 14:02 Thrive Assessment: Date of Thrive Assessment Date Thrive assessed 09/13/22 03/06/23 14:02 Const General: cooperative and no acute distress HENMT Head: Yes normal to inspection Eyes General: appearance normal, both eyes and all related structures Neck Neck: Yes normal visual inspection Chest Chest palpation & inspection: normal inspection of the chest Assessment and Plan Assessment & Plan (1) Sore throat: Code(s): J02.9 - Acute pharyngitis, unspecified Plan: rx Medications: New cephalexin 250 mg PO Q6H 20 caps 0RF Coding Level of Care Code Est Pt Level 3 (30643) Diagnoses Sore throat J02.9
[2023-03-06 13:57] VITALS: BP 122/72; PULSE 66; O2SAT 95; BMI 28.3
== END 2023-03-06 14:10 | disposition home or self-care (01) ==
PROVIDERS: PCP Internal Medicine; Visit Provider Internal Medicine
DX: J02.9 Acute pharyngitis, unspecified (principal)
CPT/HCPCS: 99213

== ENCOUNTER 2023-04-05 10:07 | Outpatient (AMB) | payer MEDICARE, MEDICAID, SELFPAY ==
--- NOTE | 2023-04-05 10:26 | A.OFFVIS_ITS ---
Intake Intake Visit Reasons: 3m follow up Intake Note: Patient is present for follow up erectile dysfunction/nocturia Urology Medications: tamsulosin/tadalafil Blood Thinner: none PVR: 10ml's Coremaking Machine Operator Required: Yes Coremaking Machine Operator Name: Brittany Accompanied by: Self / Same As Patient Allergies shellfish derived Allergy (Severe, Verified 04/05/23 22:33) Anaphylaxis Medication List - Last Reconciled 04/05/23 by FLYNN GuerreroP- albuterol sulfate 90 mcg/actuation (Ventolin HFA) 2 puffs inhalation Q4-6H PRN cholecalciferol (vitamin D3) 25 mcg PO DAILY clonazepam 0.5 mg PO BID clonidine HCl 0.2 - 0.4 mg PO BID diclofenac sodium 1% (Arthritis Pain (diclofenac)) 4 grams topical QID fluoxetine 40 mg PO DAILY ibuprofen 800 mg (2 x 400 mg) PO Q8H PRN ipratropium-albuterol 0.5 mg-3 mg(2.5 mg base)/3 mL 3 mL inhalation QID PRN omeprazole 20 mg PO BID quetiapine 400 mg PO BID tadalafil (Cialis) 20 mg PO DAILY 90 days tadalafil (Cialis) 5 mg PO DAILY 90 days tamsulosin 0.4 mg PO BEDTIME 90 days tobramycin 0.3% 1 drp ophthalmic (eye) Q4H umeclidinium 62.5 mcg/actuation (Incruse Ellipta) 1 inh inhalation DAILY HPI HPI Comments History of Present Illness Details Amado is a pleasant 62-year-old Swiss-speaking patient of Dr. Colunga. He has a past medical history of sleep apnea, asthma, GERD, depression, and fatigue. He presents to the office today for follow-up of his erectile dysfunction, low libido, and urinary urgency. Of note, patient was seen approximately 3 month ago at which time low-dose 5 mg Cialis daily was initiated with p.r.n. dosing 1 hour prior to sexual activity. In discussion with the patient today reports to be doing and feeling well. He reports somewhat improvement in erectile dysfunction with daily dosing of Cialis with on demand dosing as well. He discusses wanting to continue and is requesting a refill. Of note, workup has included testosterone free and total which were noted to be within normal limits; 401 and 52.9. Discussed at length importance of adequate sleep, healthy eating habits, daily exercise/brisk walking daily and maintaining healthy weight. He otherwise offers no other issues or concerns at this time. He denies urinary urgency, urinary frequency, incontinence, hematuria, changes to urinary stream, dysuria, foul-smelling urine, flank pain, fever, and or chills. PSA's are as follows: 03/14--0.6 09/15--0.4 PFS Medical History Sleep apnea Asthma GERD (gastroesophageal reflux disease) Tubular adenoma Abdominal pain Screening for prostate cancer Depression Fatigue Epidermal inclusion cyst Surgical History History of bunionectomy History of excision of epidermal inclusion cyst (~04/09/20) History of colonoscopy (~05/2011) History of esophagogastroduodenoscopy (EGD) (~05/2011) History of left knee surgery (~04/2016) History of hernia repair (~1990) History of removal of cyst (~04/2019) Family History Father History of hypertension History of heart disease History of diabetes mellitus Mother History of skin cancer Sister History of arthritis History of colon cancer History of breast cancer Mental health disorder Son No problems noted. Daughter No problems noted. Social History Housing: Apartment Alcohol intake: never Patient Tobacco Use Status: Former Tobacco user Quit Date: age 46 Tobacco use type: Cigarette e-Cigarette/Vaping Use: Never Used Second Hand Smoke Exposure: No service: No Current occupational status: unemployed and disabled Current occupation: left hand Cognitive needs: No Hearing needs: No Vision needs: No Review of Systems Const Reports as per HPI Eyes Reports no additional complaints ENT Reports as per HPI Card Reports no additional complaints Resp Reports as per HPI GI Reports as per HPI Reports as per HPI Musc Reports no additional complaints Neuro Reports as per HPI Psych Reports as per HPI Endo Reports no additional complaints Physical Exam Const General: cooperative, healthy appearing, comfortable, no acute distress, well developed, alert and awake Nutritional Appearance: average body habitus Orientation/consciousness: patient oriented x3 Limitations: no limitations HEENT Head: Yes normal to inspection, Yes normocephalic and Yes atraumatic Ears: hearing grossly normal bilaterally Eyes General: appearance normal, both eyes and all related structures Neck Neck: Yes normal visual inspection and Yes trachea midline Chest Chest palpation & inspection: normal inspection of the chest Resp Effort & Inspection: normal respiratory effort and able to speak in complete sentences Cardio Rate: regular rate GI Inspection: Yes normal to inspection General: Yes no CVA tenderness Back/Spine/Pelvis Back: no CVA tenderness Skin General skin exam: no rashes or lesions noted Neuro General: patient oriented x3 Extrem General: Yes normal to inspection Psych Appearance: grossly normal and well kempt Mental Status: mental status grossly normal Speech and movement: Normal speech and movement present and Clear speech present Affect: normal affect Attitude: cooperative Thought process: Normal thought process present Thought content: Normal thought content present Office Procedures Post Void Residual Post Residual Void Post Void Residual (PVR): 10 [id number] Void Residual by ultrasound Results AMB Urinalysis, Automated UA Leukoctes 0 Torrey/uL Last Edit by MuckRock on 04/05/23 10:43 UA Nitrite Last Edit by MuckRock on 04/05/23 10:43 UA Urobilinogen 0.2 mg/dL Last Edit by MuckRock on 04/05/23 10:43 UA Protein 0 mg/dL Last Edit by MuckRock on 04/05/23 10:43 UA pH 8.0 Last Edit by MuckRock on 04/05/23 10:43 UA Blood 0 Antoni/uL Last Edit by MuckRock on 04/05/23 10:43 UA Specific Lester 1.010 Last Edit by MuckRock on 04/05/23 10:43 UA Ketone Negative Last Edit by MuckRock on 04/05/23 10:43 UA Bilirubin 0 mg/dL Last Edit by MuckRock on 04/05/23 10:43 UA Glucose 0 mg/dL Last Edit by MuckRock on 04/05/23 10:43 Results Reviewed Results Reviewed: Laboratory Last Values Urine pH (Auto) 8.0 04/05/23 10:28 Specific Lester (Auto) 1.010 04/05/23 10:28 Urine Protein (Auto) 0 mg/dL 04/05/23 10:28 Glucose (UA)(Auto) 0 mg/dL 04/05/23 10:28 Urine Ketones (Auto) Negative 04/05/23 10:28 Urine Blood (Auto) 0 Antoni/uL 04/05/23 10:28 Urine Bilirubin (Auto) 0 mg/dL 04/05/23 10:28 Urine Urobilinogen (Auto) 0.2 mg/dL 04/05/23 10:28 Leukocyte Esterase (Auto) 0 Torrey/uL 04/05/23 10:28 Assessment & Plan Assessment & Plan (1) Erectile dysfunction: Code(s): N52.9 - Male erectile dysfunction, unspecified (2) Nocturia: Code(s): R35.1 - Nocturia (3) Low libido: Code(s): R68.82 - Decreased libido Plan In office urinalysis results reviewed with the patient today. PVR-10ml's Continue Flomax 0.4 mg daily as patient reports significant improvement in urinary urgency with this medication. Continue Cialis 5 mg daily with p.r.n. dosing 1 hours prior to sexual activity; refills provided. Discussed at length importance of compliance with sleep apnea for improvement in erections as well as overall health and well-being. Discussed at length importance of adequate sleep, healthy eating habits, and daily activity for improvement erections as well as overall health and well- being. Patient denies any bothersome urinary issues or concerns at this time. Follow-up in 6 months; or sooner with any issues, concerns, and or questions. Orders: Orders AMB Urinalysis Automated Today Z13.9 - Encounter for screening, unspecified AMB Post Void Residual by ultrasound Today R35.1 - Nocturia Medications: New tadalafil (Cialis) NORMA [id number] [facility] DR33 20 mg PO DAILY 90 days 30 tabs 2RF Refilled tadalafil (Cialis) [facility] DR33 [id number] 5 mg PO DAILY 90 days 90 tabs 3RF Patient Instructions: The patient had an opportunity to ask questions regarding the treatment plan. All questions were answered. Physical exam, labs, and imaging were discussed and reviewed in detail. As well as risks, benefits, and discussion of treatment choices. No major barriers to understanding were identified. The patient expressed understanding and agreement with the above treatment plan. The patient was made aware they should contact our office by phone for worsening of their current condition, the appearance of new symptoms, or with any questions or concerns. Compliance is encouraged with any medications and follow up testing that is ordered. It is a privilege to be allowed the opportunity to participate in? your urological care.? Again, if you have any questions or concerns If you have any questions or concerns please do not hesitate to contact me. The office is [phone]. This note is constructed using voice recognition software. While every effort has been made to ensure accuracy diamond driller errors may have been included. Yours sincerely, YARITZA Guerrero Coding Level of Care Code Est Pt Level 3 (69513) Diagnoses Erectile dysfunction N52.9 Nocturia R35.1 Low libido R68.82 CPT Codes Post Residual Void - PVR CPT Code: 22997-[id number] Void Residual by ultrasound ([id number])
== END 2023-04-05 11:01 | disposition home or self-care (01) ==
PROVIDERS: PCP Internal Medicine; Visit Provider Nurse Practitioner Family
DX: N52.9 Male erectile dysfunction, unspecified (principal); R35.1 Nocturia; R68.82 Decreased libido
CPT/HCPCS: 99213

== ENCOUNTER 2023-04-05 10:07 | Outpatient (REF) | payer MEDICARE, MEDICAID, SELFPAY ==
--- NOTE | ~2023-04-05 | XR_ITS ---
EXAMINATION: XR FEET, BILATERAL XR SHOULDER, RIGHT XR KNEES, BILATERAL CLINICAL INFORMATION: Pain. Comparison previous dated 08/23/2021 and 03/22/2021 and 04/14/2014 FINDINGS: Three views of left foot do not demonstrate evidence for an acute fracture or dislocation. There is some spurring at the insertion of the Achilles on the posterior calcaneus. Bony alignment is within normal limits. No bony erosion or osteopenia is seen here. There is some mild degeneration at the 1st MTP joint with mild hallux valgus. Three views of the right foot demonstrate some mild spurring at the insertion of the plantar aponeuroses and the Achilles. Hallux valgus here with some degenerative change in the MTP joint and possible bunion formation. No acute bony finding. No bony erosion or osteopenia. The joint spaces are fairly well-preserved. Four views of the right shoulder demonstrates mild degenerative change at the AC joint. Mild acromial spurring. The glenohumeral articulation is felt to be within normal limits. Two views of the left knee demonstrate mild patellofemoral degeneration. No significant effusion is seen. Phon-gc-vipuajjg medial joint space loss with tibial spine spurring medially and laterally. Two views of the right knee demonstrate mild patellofemoral degeneration and mild medial joint space loss. Some possible degenerative change in the medial collateral ligament insertion medially along the femur. No significant effusion. Possible small effusion. XR/XR shoulder RT min 2V IMPRESSION: No acute bony finding. Multiple exams. Some areas of degenerative change are noted individually above. Mildly ongoing from previous studies. No bony erosion or osteopenia is seen.
--- NOTE | ~2023-04-05 | XR_ITS ---
EXAMINATION: XR CHEST CLINICAL INFORMATION: Chest pain. COMPARISON: 06/22/2018 TECHNIQUE: 2 views of the chest were obtained. FINDINGS: Exam is very comparable to previous with the exception of the right midlung laterally. There is new reticulonodular change in opacity here. One area of nodularity may measure 6 mm. This may well be an acute infiltrate superimposed on chronic markings. There is no effusion. The cardiac silhouette is felt to be within normal limits. The hilar regions are comparable. Mild degeneration in the thoracic spine. XR/XR chest 2V IMPRESSION: Findings are as described above. Some increasing opacities in the right midlung laterally may represent an area of infiltrate. Otherwise chronic changes are noted. Followup film is recommended after treatment 4-6 weeks as underlying lung lesion cannot be excluded.
--- NOTE | ~2023-04-05 | XR_ITS ---
EXAMINATION: XR FEET, BILATERAL XR SHOULDER, RIGHT XR KNEES, BILATERAL CLINICAL INFORMATION: Pain. Comparison previous dated 08/23/2021 and 03/22/2021 and 04/14/2014 FINDINGS: Three views of left foot do not demonstrate evidence for an acute fracture or dislocation. There is some spurring at the insertion of the Achilles on the posterior calcaneus. Bony alignment is within normal limits. No bony erosion or osteopenia is seen here. There is some mild degeneration at the 1st MTP joint with mild hallux valgus. Three views of the right foot demonstrate some mild spurring at the insertion of the plantar aponeuroses and the Achilles. Hallux valgus here with some degenerative change in the MTP joint and possible bunion formation. No acute bony finding. No bony erosion or osteopenia. The joint spaces are fairly well-preserved. Four views of the right shoulder demonstrates mild degenerative change at the AC joint. Mild acromial spurring. The glenohumeral articulation is felt to be within normal limits. Two views of the left knee demonstrate mild patellofemoral degeneration. No significant effusion is seen. Gcbb-[id number] medial joint space loss with tibial spine spurring medially and laterally. Two views of the right knee demonstrate mild patellofemoral degeneration and mild medial joint space loss. Some possible degenerative change in the medial collateral ligament insertion medially along the femur. No significant effusion. Possible small effusion. XR/XR knee RT 2V IMPRESSION: No acute bony finding. Multiple exams. Some areas of degenerative change are noted individually above. Mildly ongoing from previous studies. No bony erosion or osteopenia is seen.
--- NOTE | ~2023-04-05 | XR_ITS ---
EXAMINATION: XR FEET, BILATERAL XR SHOULDER, RIGHT XR KNEES, BILATERAL CLINICAL INFORMATION: Pain. Comparison previous dated 08/23/2021 and 03/22/2021 and 04/14/2014 FINDINGS: Three views of left foot do not demonstrate evidence for an acute fracture or dislocation. There is some spurring at the insertion of the Achilles on the posterior calcaneus. Bony alignment is within normal limits. No bony erosion or osteopenia is seen here. There is some mild degeneration at the 1st MTP joint with mild hallux valgus. Three views of the right foot demonstrate some mild spurring at the insertion of the plantar aponeuroses and the Achilles. Hallux valgus here with some degenerative change in the MTP joint and possible bunion formation. No acute bony finding. No bony erosion or osteopenia. The joint spaces are fairly well-preserved. Four views of the right shoulder demonstrates mild degenerative change at the AC joint. Mild acromial spurring. The glenohumeral articulation is felt to be within normal limits. Two views of the left knee demonstrate mild patellofemoral degeneration. No significant effusion is seen. Vxoe-zw-cqwkmvux medial joint space loss with tibial spine spurring medially and laterally. Two views of the right knee demonstrate mild patellofemoral degeneration and mild medial joint space loss. Some possible degenerative change in the medial collateral ligament insertion medially along the femur. No significant effusion. Possible small effusion. XR/XR knee LT 2V IMPRESSION: No acute bony finding. Multiple exams. Some areas of degenerative change are noted individually above. Mildly ongoing from previous studies. No bony erosion or osteopenia is seen.
== END 2023-04-05 10:08 | disposition home or self-care (01) ==
LOC: HO.XRAY 10:07
PROVIDERS: Absent Provider Internal Medicine; PCP Internal Medicine; Visit Provider Nurse Practitioner Family
DX: R07.9 Chest pain, unspecified (principal); N52.9 Male erectile dysfunction, unspecified; R68.82 Decreased libido; R39.15 Urgency of urination; R35.1 Nocturia; M79.672 Pain in left foot; M79.671 Pain in right foot; M25.511 Pain in right shoulder; M25.561 Pain in right knee; M25.562 Pain in left knee; Z79.899 Other long term (current) drug therapy
CPT/HCPCS: 51798; 71046; 73030; 73560; 73620; 81003; 99212

== ENCOUNTER 2023-04-05 13:46 | Outpatient (AMB) | payer MEDICARE, MEDICAID, SELFPAY ==
[2023-04-05 13:49] VITALS: BP 130/62; PULSE 60; O2SAT 98; BMI 28.6
--- NOTE | 2023-04-05 13:49 | MHC.PC.OV ---
Vital Signs 04/05/23 13:49 Height 5 ft 11 in Weight 205 lb BMI 28.6 BP 130/62 Blood Pressure Location Lt brachial Position Sitting Pulse 60 Pulse Source Pulse Oximeter Pulse Oximetry (%) 98 Oxygen Delivery Method Room Air Intake Visit Reasons: Right arm pain from shoulder to elbow. Plan Rep: Not Required per policy Accompanied by: Self / Same As Patient Allergies shellfish derived Allergy (Severe, Verified 04/05/23 13:49) Anaphylaxis Medication List - Last Reconciled 04/05/23 by Getachew Colunga MD albuterol sulfate 90 mcg/actuation (Ventolin HFA) 2 puffs inhalation Q4-6H PRN cholecalciferol (vitamin D3) 25 mcg PO DAILY clonazepam 0.5 mg PO BID clonidine HCl 0.2 - 0.4 mg PO BID diclofenac sodium 1% (Arthritis Pain (diclofenac)) 4 grams topical QID fluoxetine 40 mg PO DAILY ibuprofen 800 mg (2 x 400 mg) PO Q8H PRN ipratropium-albuterol 0.5 mg-3 mg(2.5 mg base)/3 mL 3 mL inhalation QID PRN omeprazole 20 mg PO BID quetiapine 400 mg PO BID tadalafil (Cialis) 20 mg PO DAILY 90 days tadalafil (Cialis) 5 mg PO DAILY 90 days tamsulosin 0.4 mg PO BEDTIME 90 days tobramycin 0.3% 1 drp ophthalmic (eye) Q4H umeclidinium 62.5 mcg/actuation (Incruse Ellipta) 1 inh inhalation DAILY Tobacco use date assessed: 03/06/23 Dental Screening Dental Screen Date: 04/05/23 Did you have a dental visit in the last 12 months?: Yes Did you have a dental problem in the last 6 months where you did not have access to dental care?: No Was dental information given to patient?: Patient has dentist HPI Right arm pain from shoulder to elbow. HPI Details right shoulder pain for three days; no injury PFSH Medical History Sleep apnea Asthma GERD (gastroesophageal reflux disease) Tubular adenoma Abdominal pain Screening for prostate cancer Depression Fatigue Epidermal inclusion cyst Surgical History History of bunionectomy History of excision of epidermal inclusion cyst (~04/09/20) History of colonoscopy (~05/2011) History of esophagogastroduodenoscopy (EGD) (~05/2011) History of left knee surgery (~04/2016) History of hernia repair (~1990) History of removal of cyst (~04/2019) Family History Father History of hypertension History of heart disease History of diabetes mellitus Mother History of skin cancer Sister History of arthritis History of colon cancer History of breast cancer Mental health disorder Son No problems noted. Daughter No problems noted. Social History Housing: Apartment Alcohol intake: never Patient Tobacco Use Status: Former Tobacco user Quit Date: age 46 Tobacco use type: Cigarette e-Cigarette/Vaping Use: Never Used Second Hand Smoke Exposure: No service: No Current occupational status: unemployed and disabled Current occupation: left hand Cognitive needs: No Hearing needs: No Vision needs: No Questionnaire PHQ-9 Over the last 2 weeks, how often have you been bothered by any of the following problems? 1. Little interest or pleasure in doing things: not at all 2. Feeling down, depressed, or hopeless: not at all 3. Trouble falling or staying asleep, or sleeping too much: not at all 4. Feeling tired or having little energy: not at all 5. Poor appetite or overeating: not at all 6. Feeling bad about yourself - or that you are a failure or have let yourself or your family down: not at all 7. Trouble concentrating on things, such as reading the newspaper or watching television: not at all 8. Moving or speaking so slowly that other people could have noticed. Or the opposite - being so fidgety or restless that you have been moving around a lot more than usual: not at all 9. Thoughts that you would be better off or of hurting yourself in some way: not at all Total score: 0 Depression Screening Interpretation: Negative 06823 - PHQ-9 Billing: Yes Source: Developed by Drs. Red Duggan, Ashley Jhaveri, Humberto Barreto and colleagues, with an educational waylon from [employer]. Thrive Questionnaire Date Thrive assessed: 09/13/22 AUDIT C Alcohol Use Questionnaire (AUDIT-C) 1. How often do you have a drink containing alcohol?: Never Total Score: 0 Score Reviewed/Action Taken: No GUS-7 AMB Questionnaire GUS-7 Date GUS - 7 assessed: 09/13/22 Source: Developed by Drs. Red Duggan, Ashley Jhaveri, Humberto Barreto and colleagues, with an educational waylon from [employer]. Review of Systems Const Denies chills, Denies headache(s) and Denies weight loss ENT Denies headache(s) Card Denies chest pain, Denies syncope, Denies irregular heart rhythm and Denies dyspnea Resp Denies chest congestion, Denies cough and Denies dyspnea GI Denies abdominal pain, Denies change in stool character, Denies nausea and Denies vomiting Musc Denies deformity and Denies joint swelling Neuro Denies syncope and Denies headache(s) Physical exam (Primary Care) Vital Signs: Last Vital Signs Pulse 60 04/05/23 13:49 BP 130/62 04/05/23 13:49 Pulse Ox 98 04/05/23 13:49 Oxygen Delivery Method Room Air 04/05/23 13:49 BMI result Body Mass Index 28.6 Tobacco/Smoking Status: Tobacco use Status Tobacco use date assessed 03/06/23 04/05/23 13:54 Patient Tobacco Use Status Former Tobacco user 04/05/23 13:54 Tobacco use type Cigarette 04/05/23 13:54 e-Cigarette/Vaping Use Never Used 04/05/23 13:54 PHQ-9: PHQ-9 Score PHQ-9: Total score 0 04/05/23 13:54 Depression Screening Interpretation: Negative Thrive Assessment: Date of Thrive Assessment Date Thrive assessed 09/13/22 04/05/23 13:54 Const General: cooperative, comfortable, no acute distress and alert Neck Neck: Yes no lymphadenopathy Thyroid: Thyroid normal Resp Effort & Inspection: normal respiratory effort Auscultation: clear to auscultation bilaterally Percussion: percussion normal Cardio Jugular venous distension: no JVD Palpation: normal PMI Rate: regular rate Rhythm: regular rhythm Heart sounds: S1 normal heart sound present and S2 normal heart sound present GI Inspection: Yes normal to inspection Palpation (GI): No hepatosplenomegaly present Skin General skin exam: no rashes or lesions noted Extrem General: Yes no clubbing, cyanosis or edema Results AMB Urinalysis, Automated UA Leukoctes 0 [place]rey/uL Last Edit by Margo Shaniangela on 04/05/23 10:43 UA Nitrite Last Edit by Margo Andujar on 04/05/23 10:43 UA Urobilinogen 0.2 mg/dL Last Edit by Margo Andujar on 04/05/23 10:43 UA Protein 0 mg/dL Last Edit by Margo Shaniangela on 04/05/23 10:43 UA pH 8.0 Last Edit by Margo Shaniangela on 04/05/23 10:43 UA Blood 0 Antoni/uL Last Edit by Margo Andujar on 04/05/23 10:43 UA Specific [place] 1.010 Last Edit by Margo Andujar on 04/05/23 10:43 UA Ketone Negative Last Edit by Margo Andujar on 04/05/23 10:43 UA Bilirubin 0 mg/dL Last Edit by Margo Shaniangela on 04/05/23 10:43 UA Glucose 0 mg/dL Last Edit by Margo Andujar on 04/05/23 10:43 Assessment and Plan Assessment & Plan (1) Shoulder pain: Code(s): M25.519 - Pain in unspecified shoulder Plan: xr Orders: Orders XR shoulder RT min 2V Today M25.519 - Pain in unspecified shoulder XR chest 2V Today R07.9 - Chest pain, unspecified Coding Level of Care Code Est Pt Level 3 (46591) Diagnoses Shoulder pain M25.519
== END 2023-04-05 14:18 | disposition home or self-care (01) ==
PROVIDERS: PCP Internal Medicine; Visit Provider Internal Medicine
DX: M25.519 Pain in unspecified shoulder (principal)
CPT/HCPCS: 99213

== ENCOUNTER 2023-04-12 10:48 | Outpatient (REF) | payer MEDICARE, MEDICAID, SELFPAY ==
--- NOTE | ~2023-04-12 | XR_ITS ---
EXAMINATION: XR CHEST CLINICAL INFORMATION: Other nonspecific abnormal finding of lung field. COMPARISON: Most recent chest radiograph dated 04/05/2023. TECHNIQUE: 2 views of the chest were obtained. FINDINGS: Resolution of the previously seen patchy reticulonodular opacities within the right midlung. Chronic interstitial prominence is unchanged. No new airspace consolidation. No pleural effusion or pneumothorax. Stable cardiomediastinal silhouette. XR/XR chest 2V IMPRESSION: 1. Resolution of the previously seen patchy reticulonodular opacities within the right midlung. 2. No acute cardiopulmonary findings.
== END 2023-04-12 10:49 | disposition home or self-care (01) ==
LOC: HO.XRAY 10:48
PROVIDERS: PCP Internal Medicine; Visit Provider Internal Medicine
DX: R91.8 Other nonspecific abnormal finding of lung field (principal)
CPT/HCPCS: 71046

== ENCOUNTER 2023-04-18 12:40 | Outpatient (AMB) | payer MEDICARE, MEDICAID, SELFPAY ==
--- NOTE | 2023-04-18 12:51 | A.OFFVIS_ITS ---
Intake Vital Signs 04/18/23 12:53 Height 5 ft 11 in Weight 205 lb 0.478 oz BMI 28.6 BP 119/69 Blood Pressure Location Lt brachial Position Sitting Pulse 62 Intake Visit Reasons: 6 month follow up Intake Note: Amado presents in the office as a 6 month follow up. CC: He states that that he is not having any concerns today. Heel Sander Required: No Allergies shellfish derived Allergy (Severe, Verified 04/18/23 12:53) Anaphylaxis HPI 6 month follow up HPI Details LAST VISIT: GERD (gastroesophageal reflux disease) Continue omeprazole. Patient was also encouraged to avoid dietary triggers and like 10 snacking. Staying upright for minimum 3 hours after meals discussed with patient. Constipation Patient will try to get MiraLax [id number] if unable to use it with Good Rx card. Patient was also encouraged to increase fluid intake and activity to promote better bowel motility. Eat food that is high in fiber more vegetables and fruits. I will see him in 6 months, sooner on as needed basis. Patient is agreeable to this plan and verbalizes understanding of instructions. He was given the opportunity to ask questions and all questions answered. TODAY'S VISIT Patient is here today for follow-up. Patient reports that he has been doing well. Reports that he is moving his bowels daily. Patient purchased ofuv-mso-eudghtn magnesium citrate tablets and is taking that instead of MiraLax. Patient states that it was cheaper. He states that he is moving his bowels without any issues. Denies melena, hematochezia, unintentional weight loss or ribbon like stools. Patient denies any assessing, dysphagia or odynophagia [facility] Medical History Sleep apnea Asthma GERD (gastroesophageal reflux disease) Tubular adenoma Abdominal pain Screening for prostate cancer Depression Fatigue Epidermal inclusion cyst Surgical History History of bunionectomy History of excision of epidermal inclusion cyst (~04/09/20) History of colonoscopy (~05/2011) History of esophagogastroduodenoscopy (EGD) (~05/2011) History of left knee surgery (~04/2016) History of hernia repair (~1990) History of removal of cyst (~04/2019) Family History Father History of hypertension History of heart disease History of diabetes mellitus Mother History of skin cancer Sister History of arthritis History of colon cancer History of breast cancer Mental health disorder Son No problems noted. Daughter No problems noted. Social History Housing: Apartment Alcohol intake: never Patient Tobacco Use Status: Former Tobacco user Quit Date: age 46 Tobacco use type: Cigarette e-Cigarette/Vaping Use: Never Used Second Hand Smoke Exposure: No service: No Current occupational status: unemployed and disabled Current occupation: left hand Cognitive needs: No Hearing needs: No Vision needs: No Review of Systems Const Denies weight gain and Denies weight loss ENT Reports no additional complaints, Denies dysphagia and Denies odynophagia Card Reports no additional complaints Resp Reports no additional complaints GI Denies abdominal pain, Denies belching, Denies melena, Denies bloating, Denies change in bowel habits, Denies dysphagia, Denies excessive flatus, Denies dyspepsia, Denies heartburn, Denies diarrhea, Denies loose stools, Denies nausea, Denies odynophagia and Denies vomiting Reports no additional complaints Musc Reports no additional complaints Neuro Reports no additional complaints Psych Reports no additional complaints Endo Reports no additional complaints Physical Exam Vital Signs: Last Vital Signs Pulse 62 04/18/23 12:53 BP 119/69 04/18/23 12:53 BMI result Body Mass Index 28.6 Const General: healthy appearing, no acute distress and well developed Nutritional Appearance: well nourished Orientation/consciousness: patient oriented x3 HEENT Head: Yes normal to inspection, Yes normocephalic and Yes atraumatic Face and sinus: Yes normal facial exam Mouth: Normal oral and palatal mucosa present Throat: Yes posterior oropharynx normal, Yes tonsils normal and Yes uvula midline Eyes General: appearance normal, both eyes and all related structures Neck Neck: Yes normal visual inspection, Yes full ROM and Yes trachea midline Thyroid: Thyroid normal Resp Effort & Inspection: normal respiratory effort, able to speak in complete sentences, no tracheal deviation and symmetric chest movement Auscultation: clear to auscultation bilaterally Cardio Rate: regular rate Heart sounds: S1 normal heart sound present and S2 normal heart sound present GI Inspection: Yes normal to inspection and No distended Palpation (GI): Soft to palpation, not firm, nontender and No hepatosplenomegaly present Auscultation: normal bowel sounds General: Yes no CVA tenderness Back/Spine/Pelvis Back: no CVA tenderness Skin General skin exam: elasticity normal, turgor normal and dry skin Neuro General: patient oriented x3 Psych Appearance: grossly normal Mental Status: mental status grossly normal Speech and movement: Normal speech and movement present Assessment & Plan Assessment & Plan (1) GERD (gastroesophageal reflux disease): Code(s): K21.9 - Gastro-esophageal reflux disease without esophagitis Qualifiers: Esophagitis presence: without esophagitis Qualified Code(s): K21.9 - Gastro-esophageal reflux disease without esophagitis Plan: Continue omeprazole. Patient was encouraged to avoid dietary triggers in late night snacking. Staying upright for minimum 3 hours after meals discussed with patient. (2) Constipation: Code(s): K59.00 - Constipation, unspecified Qualifiers: Constipation type: slow transit constipation Qualified Code(s): K59.01 - Slow transit constipation Plan: Will send script for magnesium oxide. Patient was encouraged to increase fluid intake and activity to promote better bowel motility. I will see him in 1 year, sooner on as needed basis. Patient is agreeable to this plan and verbalizes understanding of instructions. He was given the opportunity to ask questions all questions answered. Thank you for allowing me to participate in his care Medications: New magnesium oxide 400 mg PO DAILY 120 tabs 2RF Coding Level of Care Code Est Pt Level 3 (27572) Diagnoses Gastroesophageal reflux disease without esophagitis K21.9 Esophagitis presence: without esophagitis Slow transit constipation K59.01 Constipation type: slow transit constipation Time Spent (min) 25 Comment 15 minutes spent with patient and additional 10 minutes spent reviewing his records
[2023-04-18 12:53] VITALS: BP 119/69; PULSE 62; BMI 28.6
== END 2023-04-18 13:28 | disposition home or self-care (01) ==
PROVIDERS: Visit Provider Nurse Practitioner Family
DX: K21.9 Gastro-esophageal reflux disease without esophagitis (principal); K59.01 Slow transit constipation
CPT/HCPCS: 99213

== ENCOUNTER → 2023-04-18 12:40 | Outpatient (BNVA) | payer MEDICARE, MEDICAID, SELFPAY | PROVIDERS: Visit Provider Nurse Practitioner Family | DX: K59.01 Slow transit constipation (principal); K21.9 Gastro-esophageal reflux disease without esophagitis | CPT/HCPCS: 99212 ==

== ENCOUNTER 2023-04-20 14:18 | Outpatient (AMB) | payer MEDICARE, MEDICAID, SELFPAY ==
[2023-04-20 14:23] VITALS: BP 118/62; PULSE 68; O2SAT 96; BMI 28.6
--- NOTE | 2023-04-20 14:23 | MHC.OFFVIS ---
Intake Vital Signs 04/20/23 14:23 Height 5 ft 11 in Weight 205 lb 0.478 oz BMI 28.6 BP 118/62 Blood Pressure Location Rt brachial Position Sitting Pulse 68 Pulse Source Doppler Pulse Oximetry (%) 96 Oxygen Delivery Method Room Air Intake Visit Reasons: Abnormal findings on diagnostic imaging Allergies shellfish derived Allergy (Severe, Verified 04/20/23 14:26) Anaphylaxis HPI Abnormal findings on diagnostic imaging HPI Details 62-year-old gentleman with underlying history of bronchiectasis, previously seen at [facility], now presents to transfer his care. He denies recent exacerbations. He is currently on suppressive azithromycin therapy of 250 mg daily. He has been using Incruse, duo nebs, and albuterol MDI with suboptimal control of reactive airway component. [facility] Medical History (Updated 04/20/23 @ 15:05 by Mono Jones MD) Sleep apnea Asthma GERD (gastroesophageal reflux disease) Tubular adenoma Abdominal pain Screening for prostate cancer Depression Fatigue Epidermal inclusion cyst Surgical History History of bunionectomy History of excision of epidermal inclusion cyst (~04/09/20) History of colonoscopy (~05/2011) History of esophagogastroduodenoscopy (EGD) (~05/2011) History of left knee surgery (~04/2016) History of hernia repair (~1990) History of removal of cyst (~04/2019) Family History Father History of hypertension History of heart disease History of diabetes mellitus Mother History of skin cancer Sister History of arthritis History of colon cancer History of breast cancer Mental health disorder Son No problems noted. Daughter No problems noted. Social History Housing: Apartment Alcohol intake: never Patient Tobacco Use Status: Former Tobacco user Quit Date: age 46 Tobacco use type: Cigarette e-Cigarette/Vaping Use: Never Used Second Hand Smoke Exposure: No service: No Current occupational status: unemployed and disabled Current occupation: left hand Cognitive needs: No Hearing needs: No Vision needs: No Review of Systems Const Denies daytime sleepiness, Denies excessive sweating, Denies fatigue, Denies fever(s), Denies lethargy, Denies malaise, Denies night sweats, Denies snoring and Denies weight loss Eyes Denies blurry vision and Denies itchy eyes ENT Denies nasal congestion, Denies post nasal drip, Denies sinus pain, Denies sinus pressure and Denies other ( Thrush) Card Denies chest pain, Denies pedal edema, Denies dyspnea, Denies orthopnea and Denies paroxysmal nocturnal dyspnea Resp Denies cough, Denies hemoptysis, Denies excessive phlegm production, Denies dyspnea, Denies snoring and Denies wheezing GI Denies abdominal pain and Denies heartburn Musc Denies myalgias, Denies arthralgias and Denies joint swelling Skin/Breast Denies rash Neuro Denies memory loss and Denies seizure-like activity Psych Denies abnormal sleep pattern, Denies anxiety and Denies memory loss Endo Denies excessive sweating, Denies fatigue and Denies heat intolerance Brent/Lymph Denies easy bruising Aller/Immun Denies itchy eyes, Denies seasonal rhinorrhea and Denies wheezing Physical Exam Vital Signs: Last Vital Signs Pulse 68 04/20/23 14:23 BP 118/62 04/20/23 14:23 Pulse Ox 96 04/20/23 14:23 Oxygen Delivery Method Room Air 04/20/23 14:23 BMI result Body Mass Index 28.6 Const General: no acute distress and alert Nutritional Appearance: not obese Orientation/consciousness: Other orientation findings ( oriented) HEENT Head: Yes atraumatic Eyes General: appearance normal, both eyes and all related structures Sclerae: sclerae normal EOM: EOMs intact bilaterally Neck Neck: Yes supple Lymphatic: no lymphadenopathy noted Resp Effort & Inspection: normal respiratory effort and no use of accessory muscles Auscultation: clear to auscultation bilaterally Cardio Rate: regular rate Rhythm: regular rhythm Heart sounds: no gallops, no murmurs and no rubs Skin General skin exam: other ( warm) Extrem General: No clubbing, No cyanosis and No edema Assessment & Plan Assessment & Plan (1) Bronchiectasis: Code(s): J47.9 - Bronchiectasis, uncomplicated Plan: On suppressive azithromycin to 150 mg daily. No recent exacerbations. Will obtain records from [facility]. Will obtain CT chest for further evaluation. (2) Asthma: Code(s): J45.909 - Unspecified asthma, uncomplicated Plan: Suboptimal control of reactive airway component on Incruse, will add Breo. Orders: Orders CT chest wo IV con Today J47.9 - Bronchiectasis, uncomplicated Medications: New Breo Ellipta 200-25 mcg/dose (fluticasone furoate-vilanterol) 1 inh inhalation DAILY 1 ea 6RF 30 days NS J47.9 - Bronchiectasis, uncomplicated Coding Level of Care Code New Pt Level 4 (78712) Diagnoses Bronchiectasis J47.9 Asthma J45.909
== END 2023-04-20 14:46 | disposition home or self-care (01) ==
PROVIDERS: PCP Internal Medicine; Visit Provider Internal Medicine Pulmonary Disease
DX: J47.9 Bronchiectasis, uncomplicated (principal); J45.909 Unspecified asthma, uncomplicated
CPT/HCPCS: 99204

== ENCOUNTER → 2023-04-20 14:18 | Outpatient (BNVA) | payer MEDICARE, MEDICAID, SELFPAY | PROVIDERS: PCP Internal Medicine; Visit Provider Internal Medicine Pulmonary Disease ==

== ENCOUNTER → 2023-05-16 14:28 | Outpatient (BNVA) | payer MEDICARE, MEDICAID, SELFPAY | PROVIDERS: PCP Internal Medicine; Visit Provider Internal Medicine Pulmonary Disease ==

== ENCOUNTER 2023-05-19 13:03 | Outpatient (REF) | payer MEDICARE, MEDICAID, SELFPAY ==
--- NOTE | ~2023-05-19 | CT_ITS ---
EXAMINATION: CT CHEST WITHOUT CONTRAST CLINICAL INFORMATION: Bronchiectasis COMPARISON: Previous chest CT July 2018 and chest x-ray March 2023 TECHNIQUE: Multidetector volumetric CT imaging of the chest was done. Axial MIP volume rendering provided. Sagittal and coronal reformatted images were obtained. This CT examination was performed using dose optimization techniques as appropriate, variously including the following: *Automated exposure control *Adjustment of mA and/or kV according to patient size (this includes techniques or standardized protocols for targeted exams where dose is matched to indication/reason for exam; i.e. extremities or head) *Use of iterative reconstruction technique DLP: 159 mGy-cm FINDINGS: LUNGS: Mild paraseptal emphysema Exam is limited due to respiratory motion artifact, particularly at the lung bases. There is bronchial wall thickening and increased peribronchial attenuation seen in the right upper lobe and bilateral lower lobes. It is difficult to exclude right lower lobe bronchopneumonia. This appears increased from 2019 exam. There is a 4 mm peripheral or subpleural right upper lobe nodule near the major fissure axial image 57 series 11. This may represent a subpleural lymph node. There is evidence of mild paraseptal emphysema. MEDIASTINUM: Slightly prominent thyroid gland similar to previous chest CT. Prominent mediastinal lymph nodes. Evaluation for hilar adenopathy is limited without IV contrast but there is likely a prominent hilar adenopathy bilaterally as well.. Normal heart size. Mild coronary artery calcification. No pericardial effusion. CORONARY ARTERY CALCIFICATION: Mild PLEURA: There is no pleural effusion. No pleural mass or thickening. AXILLA: No lymphadenopathy. UPPER ABDOMEN: Left renal cyst. No imaging follow-up recommended. OSSEOUS STRUCTURES: Degenerative changes of the spine. CT/CT chest wo IV con IMPRESSION: Limited exam due to respiratory motion artifact. Bronchial wall thickening and increased peribronchial attenuation in the right upper, right lower and left lower lobes, greatest in the right lower lobe. It is difficult to exclude right lower lobe bronchopneumonia. Prominent mediastinal and likely bilateral hilar lymphadenopathy. Bronchial wall thickening and adenopathy appear increased from 2019 exam. Fleischner guidelines were followed.
== END 2023-05-19 13:04 | disposition home or self-care (01) ==
LOC: HO.CT 13:03
PROVIDERS: PCP Internal Medicine; Visit Provider Internal Medicine Pulmonary Disease
DX: J47.9 Bronchiectasis, uncomplicated (principal)
CPT/HCPCS: 71250

== ENCOUNTER 2023-05-31 10:38 | Outpatient (AMB) | payer MEDICARE, MEDICAID, SELFPAY ==
[2023-05-31 10:40] VITALS: BP 120/72; PULSE 61; O2SAT 96; BMI 28.9
--- NOTE | 2023-05-31 10:40 | MHC.OFFVIS ---
Intake Vital Signs 05/31/23 10:40 Height 5 ft 11 in Weight 207 lb 3.752 oz BMI 28.9 BP 120/72 Blood Pressure Location Lt brachial Position Sitting Pulse 61 Pulse Source Doppler Pulse Oximetry (%) 96 Oxygen Delivery Method Room Air Intake Visit Reasons: S/p ct chest Allergies shellfish derived Allergy (Severe, Verified 05/31/23 10:44) Anaphylaxis HPI S/p ct chest HPI Details 62-year-old gentleman now followed for bronchiectasis, reactive airway disease, and mediastinal lymphadenopathy. After the last office visit patient was started on Breo of with improvement in his symptom control. He continues to use Incruse and albuterol MDI. He has completed his CT chest that shows some mediastinal lymphadenopathy. He denies recent exacerbations. He is complaining of pain when trying to raise right arm above the shoulder level. [facility] Medical History (Updated 05/31/23 @ 11:00 by Mono Jones MD) Sleep apnea Asthma GERD (gastroesophageal reflux disease) Tubular adenoma Abdominal pain Screening for prostate cancer Depression Fatigue Epidermal inclusion cyst Surgical History History of bunionectomy History of excision of epidermal inclusion cyst (~04/09/20) History of colonoscopy (~05/2011) History of esophagogastroduodenoscopy (EGD) (~05/2011) History of left knee surgery (~04/2016) History of hernia repair (~1990) History of removal of cyst (~04/2019) Family History Father History of hypertension History of heart disease History of diabetes mellitus Mother History of skin cancer Sister History of arthritis History of colon cancer History of breast cancer Mental health disorder Son No problems noted. Daughter No problems noted. Social History Housing: Apartment Alcohol intake: never Patient Tobacco Use Status: Former Tobacco user Quit Date: age 46 Tobacco use type: Cigarette e-Cigarette/Vaping Use: Never Used Second Hand Smoke Exposure: No service: No Current occupational status: unemployed and disabled Current occupation: left hand Cognitive needs: No Hearing needs: No Vision needs: No Review of Systems Const Denies daytime sleepiness, Denies excessive sweating, Denies fatigue, Denies fever(s), Denies lethargy, Denies malaise, Denies night sweats, Denies snoring and Denies weight loss Eyes Denies blurry vision and Denies itchy eyes ENT Denies nasal congestion, Denies post nasal drip, Denies sinus pain, Denies sinus pressure and Denies other ( Thrush) Card Denies chest pain, Denies pedal edema, Denies dyspnea, Denies orthopnea and Denies paroxysmal nocturnal dyspnea Resp Denies cough, Denies hemoptysis, Denies excessive phlegm production, Denies dyspnea, Denies snoring and Denies wheezing GI Denies abdominal pain and Denies heartburn Musc Denies myalgias, Denies arthralgias and Denies joint swelling Skin/Breast Denies rash Neuro Denies memory loss and Denies seizure-like activity Psych Denies abnormal sleep pattern, Denies anxiety and Denies memory loss Endo Denies excessive sweating, Denies fatigue and Denies heat intolerance Brent/Lymph Denies easy bruising Aller/Immun Denies itchy eyes, Denies seasonal rhinorrhea and Denies wheezing Physical Exam Vital Signs: Last Vital Signs Pulse 61 05/31/23 10:40 BP 120/72 05/31/23 10:40 Pulse Ox 96 05/31/23 10:40 Oxygen Delivery Method Room Air 05/31/23 10:40 BMI result Body Mass Index 28.9 Const General: no acute distress and alert Nutritional Appearance: not obese Orientation/consciousness: Other orientation findings ( oriented) HEENT Head: Yes atraumatic Eyes General: appearance normal, both eyes and all related structures Sclerae: sclerae normal EOM: EOMs intact bilaterally Neck Neck: Yes supple Lymphatic: no lymphadenopathy noted Resp Effort & Inspection: normal respiratory effort and no use of accessory muscles Auscultation: clear to auscultation bilaterally Cardio Rate: regular rate Rhythm: regular rhythm Heart sounds: no gallops, no murmurs and no rubs Skin General skin exam: other ( warm) Extrem General: No clubbing, No cyanosis and No edema Assessment & Plan Assessment & Plan (1) Bronchiectasis: Code(s): J47.9 - Bronchiectasis, uncomplicated Plan: No recent exacerbation. Continue suppressive therapy with azithromycin. (2) Asthma: Code(s): J45.909 - Unspecified asthma, uncomplicated Plan: Well controlled after addition of Breo to Incruse. Continue Incruse, Breo, DuoNeb, and albuterol MDI. (3) Shoulder pain: Code(s): M25.519 - Pain in unspecified shoulder Plan: Likely cervical radiculopathy, will refer to pain management. (4) Mediastinal lymphadenopathy: Code(s): R59.0 - Localized enlarged lymph nodes Plan: Results of CT chest reviewed. Will reviewed repeat CT chest in 6 months. Orders: Orders CT chest wo IV con 10/30/23 R59.0 - Localized enlarged lymph nodes Referrals Pain Management Referral M25.519 - Pain in unspecified shoulder Coding Level of Care Code Est Pt Level 4 (36427) Diagnoses Bronchiectasis J47.9 Asthma J45.909 Shoulder pain M25.519 Mediastinal lymphadenopathy R59.0
== END 2023-05-31 11:03 | disposition home or self-care (01) ==
PROVIDERS: PCP Internal Medicine; Visit Provider Internal Medicine Pulmonary Disease
DX: J47.9 Bronchiectasis, uncomplicated (principal); J45.909 Unspecified asthma, uncomplicated; M25.519 Pain in unspecified shoulder; R59.0 Localized enlarged lymph nodes
CPT/HCPCS: 99214

== ENCOUNTER → 2023-05-31 10:38 | Outpatient (BNVA) | payer MEDICARE, MEDICAID, SELFPAY | PROVIDERS: PCP Internal Medicine; Visit Provider Internal Medicine Pulmonary Disease | DX: J45.909 Unspecified asthma, uncomplicated (principal); J47.9 Bronchiectasis, uncomplicated; M25.519 Pain in unspecified shoulder; R59.0 Localized enlarged lymph nodes | CPT/HCPCS: 99212 ==

== ENCOUNTER 2023-06-01 14:40 | Outpatient (AMB) | payer MEDICARE, MEDICAID, SELFPAY ==
--- NOTE | 2023-06-01 14:43 | MHC.OFFVIS ---
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 He was last seen in our office for left shoulder and knee pain in December 2021. He reports no further pain in these areas since course of 11 sessions of physical therapy and cortisone injection for left shoulder in April 2022. Denies any recent trauma, injury or falls. Right hand dominant. He presents with localized tenderness in the posterior and anterior aspects of right shoulder and difficulty with overhead reaches or reaching his back pocket. Denies neck pain but reports right lateral rotation and cervical flexion reproduces anterior right shoulder pain. Pain is described as constant aching, dull, throbbing and is worse with any movements, lifting, pulling, reaching, squeezing or sleeping on right side. Denies previous right shoulder injections. He is taking Ibuprofen 800 mg and Tylenol extra strength with minimal relief. Pain at rest 5/10 and 9/10 with movements. Patient is interested in right shoulder cortisone injection. PRIOR: Patient is a pleasant 61 years old Croatian speaking male who presents today with anterior left shoulder pain that started about 2 months ago for no apparent reason. Denies trauma, injury, or falls. Patient has difficulty with overhead reaches or lifting his arms up due to significant pain. Any movement or range of motion of the left shoulder causes him pain without radiation to his neck or rightPRI arm. Pain described as constant aching, dull, throbbing, numbness, tingling, and sharp. Patient has been taking high doses of Ibuprofen with topical lidocaine patches and diclofenac cream with continued symptoms. He is awaiting his first visit with physical therapy. Recent imaging showed mild degenerative changes left the AC joint without visible acute fracture or dislocation. Patient also has arthritis at the acromioclavicular joint of the right shoulder as well. He denies previous shoulder surgery or injections. Patient also reports chronic bilateral knee pain that has been worsening for the past year. He reports his left knee pain is worse than his right knee. He has a prior history of left knee chondroplasty and partial medial menisce[place] [address] Talavera, cortisone injections, bracing, and PT in 2017 for both knees. He was evaluated for his left knee pain by Dr. Talavera in 2019 and was told he was a surgical candidate for arthroplasty but has not undergone this. He describes his knee pain as dull, aching, and sharp which is worsened with ambulation or climbing stairs. Patient reports he is unable to participate in PT for his knees. His imaging of left knee showed mild tricompartmental osteoarthritis and right mild medial and lateral compartment osteoarthritis. Patient is interested in undergoing diagnostic injections for his knees with potential non surgical ablative or stimulative treatment to alleviate his ongoing pain. Patient denies fever, chills, malaise, weight loss, abdominal or groin pain, weakness, numbness or tingling, bladder/bowel dysfunction or saddle paresthesia. He ambulates with mildly antalgic gait without assistive devices but reports using cane at home. [facility] Medical History Sleep apnea Asthma GERD (gastroesophageal reflux disease) Tubular adenoma Abdominal pain Screening for prostate cancer Depression Fatigue Epidermal inclusion cyst Surgical History History of bunionectomy History of excision of epidermal inclusion cyst (~04/09/20) History of colonoscopy (~05/2011) History of esophagogastroduodenoscopy (EGD) (~05/2011) History of left knee surgery (~04/2016) History of hernia repair (~1990) History of removal of cyst (~04/2019) Family History Father History of hypertension History of heart disease History of diabetes mellitus Mother History of skin cancer Sister History of arthritis History of colon cancer History of breast cancer Mental health disorder Son No problems noted. Daughter No problems noted. Social History Housing: Apartment Alcohol intake: never Patient Tobacco Use Status: Former Tobacco user Quit Date: age 46 Tobacco use type: Cigarette e-Cigarette/Vaping Use: Never Used Second Hand Smoke Exposure: No service: No Current occupational status: unemployed and disabled Current occupation: left hand Cognitive needs: No Hearing needs: No Vision needs: No Review of Systems Const All systems reviewed & are unremarkable except as noted in HPI and below Reports as per HPI, Denies body aches, Denies chills, Reports difficulty sleeping, Reports fatigue, Denies fever(s), Denies headache(s), Denies night sweats, Denies weakness and Denies weight loss ENT Denies headache(s) and Denies neck pain Card Denies chest pain, Denies irregular heart rhythm, Denies lightheadedness and Denies dyspnea Resp Denies cough and Denies dyspnea Musc Reports as per HPI, Denies back pain, Reports arthralgias, Denies joint swelling, Denies neck pain, Denies numbness, Denies radiating pain into limb, Reports stiffness and Denies tingling Neuro Denies headache(s), Denies numbness, Denies tingling and Denies weakness Endo Reports fatigue Physical Exam Vital Signs: Last Vital Signs Pulse 59 06/01/23 14:47 BP 131/70 06/01/23 14:47 Pulse Ox 99 06/01/23 14:47 Oxygen Delivery Method Room Air 06/01/23 14:47 BMI result Body Mass Index 28.9 General: Appears afebrile. Alert and oriented. Mood and affect appropriate. Follows and participates in conversation appropriately. Respiratory effort is unlabored. No cough. Able to transition from sit to stand unassisted. Ambulates with bilaterally normal heel strike and toe off. Extrem Right upper extremity: normal to inspection, normal capillary refill, no joint enlargement and shoulder/upper arm (difficulty with overhead reach or reaching his back pocket) Details: tenderness Location: of the A-C joint, over the biceps tendon and over the subacromial bursa and crepitus; no swelling, no ecchymosis and no unusual warmth Results Reviewed Results Reviewed: XR FEET, BILATERAL XR SHOULDER, RIGHT XR KNEES, BILATERAL 04/05/23 CLINICAL INFORMATION: Pain. Comparison previous dated 08/23/2021 and 03/22/2021 and 04/14/2014 FINDINGS: Three views of left foot do not demonstrate evidence for an acute fracture or dislocation. There is some spurring at the insertion of the Achilles on the posterior calcaneus. Bony alignment is within normal limits. No bony erosion or osteopenia is seen here. There is some mild degeneration at the 1st MTP joint with mild hallux valgus. Three views of the right foot demonstrate some mild spurring at the insertion of the plantar aponeuroses and the Achilles. Hallux valgus here with some degenerative change in the MTP joint and possible bunion formation. No acute bony finding. No bony erosion or osteopenia. The joint spaces are fairly well-preserved. Four views of the right shoulder demonstrates mild degenerative change at the AC joint. Mild acromial spurring. The glenohumeral articulation is felt to be within normal limits. Two views of the left knee demonstrate mild patellofemoral degeneration. No significant effusion is seen. [id number] medial joint space loss with tibial spine spurring medially and laterally. Two views of the right knee demonstrate mild patellofemoral degeneration and mild medial joint space loss. Some possible degenerative change in the medial collateral ligament insertion medially along the femur. No significant effusion. Possible small effusion. IMPRESSION: No acute bony finding. Multiple exams. Some areas of degenerative change are noted individually above. Mildly ongoing from previous studies. No bony erosion or osteopenia is seen. XR SHOULDER, RIGHT 08/23/22 CLINICAL INFORMATION: Pain COMPARISON: Previous x-ray August 2013 TECHNIQUE: AP external rotation, Grashey, scapular Y, and axillary views of the right shoulder. FINDINGS: Bone alignment is normal. No fracture or dislocation is seen. The glenohumeral joint is normal. There is arthritis at the acromial clavicular joint. Soft tissues are normal. IMPRESSION: Arthritis at the acromioclavicular joint. Assessment & Plan Assessment & Plan (1) Right shoulder pain: Code(s): M25.511 - Pain in right shoulder (2) Osteoarthritis of right shoulder: Code(s): M19.011 - Primary osteoarthritis, right shoulder Plan Schedule for Right shoulder intra-articular injection with local and US guidance. Expectations, risks and benefits were reviewed. Patient is aware he will be contacted to schedule this procedure. Short script sent for Tramadol, side effects and precautions reviewed with patient. Consider PT for right shoulder following therapeutic injection. All questions were answered and the patient is in agreement of plan. Follow-up after injection and sooner as needed. Medications: New meloxicam 7.5 mg PO DAILY PRN 60 tabs 0RF pain M25.511 - Pain in right shoulder tramadol 50 mg PO TID 7 days PRN 21 tabs 0RF pain M19.011 - Primary osteoarthritis, right shoulder, M25.511 - Pain in right shoulder Discontinued ibuprofen Discontinued Reason: Doctor's Order 800 mg (2 x 400 mg) PO Q8H PRN 60 tabs 2RF pain M25.512 - Pain in left shoulder Coding Level of Care Code Est Pt Level 4 (79974) Diagnoses Right shoulder pain M25.511 Osteoarthritis of right shoulder M19.011
[2023-06-01 14:47] VITALS: BP 131/70; PULSE 59; O2SAT 99; BMI 28.9
== END 2023-06-01 15:06 | disposition home or self-care (01) ==
PROVIDERS: PCP Internal Medicine; Referring Provider Internal Medicine Pulmonary Disease; Visit Provider Nurse Practitioner Family
DX: M25.511 Pain in right shoulder (principal); M19.011 Primary osteoarthritis, right shoulder
CPT/HCPCS: 99214

== ENCOUNTER → 2023-06-01 14:40 | Outpatient (BNVA) | payer MEDICARE, MEDICAID, SELFPAY | PROVIDERS: PCP Internal Medicine; Referring Provider Internal Medicine Pulmonary Disease; Visit Provider Nurse Practitioner Family | DX: M25.511 Pain in right shoulder (principal); M19.011 Primary osteoarthritis, right shoulder | CPT/HCPCS: 99212 ==

== ENCOUNTER 2023-06-09 08:05 | Outpatient (AMB) | payer MEDICARE, MEDICAID, SELFPAY ==
[2023-06-09 08:09] VITALS: PULSE 60; RESP 12; O2SAT 97; BMI 29.0
--- NOTE | 2023-06-09 08:09 | A.OFFVIS_ITS ---
Intake Vital Signs 06/09/23 08:09 Height 5 ft 11 in Weight 208 lb BMI 29.0 Blood Pressure Location Lt brachial Position Sitting Respiration 12 Pulse 60 Pulse Source Pulse Oximeter Pulse Oximetry (%) 97 Oxygen Delivery Method Room Air Intake Visit Reasons: RIGHT SHOULDER INJ W/ULTRASOUND/CONFIRMED Allergies shellfish derived Allergy (Severe, Verified 06/09/23 08:10) Anaphylaxis Medication List - Last Reconciled 06/09/23 by Emily Isbell LPN albuterol sulfate 90 mcg/actuation (Ventolin HFA) 2 puffs inhalation Q4-6H PRN Breo Ellipta 200-25 mcg/dose (fluticasone furoate-vilanterol) 1 inh inhalation DAILY 30 days NS cholecalciferol (vitamin D3) 25 mcg PO DAILY clonazepam 0.5 mg PO BID clonidine HCl 0.2 - 0.4 mg PO BID diclofenac sodium 1% (Arthritis Pain (diclofenac)) 4 grams topical QID fluoxetine 40 mg PO DAILY ipratropium-albuterol 0.5 mg-3 mg(2.5 mg base)/3 mL 3 mL inhalation QID PRN magnesium oxide 400 mg PO DAILY meloxicam 7.5 mg PO DAILY PRN omeprazole 20 mg PO BID quetiapine 400 mg PO BID tadalafil (Cialis) 20 mg PO DAILY 90 days tadalafil (Cialis) 5 mg PO DAILY 90 days tamsulosin 0.4 mg PO BEDTIME 90 days tramadol 50 mg PO TID PRN 7 days umeclidinium 62.5 mcg/actuation (Incruse Ellipta) 1 inh inhalation DAILY HPI RIGHT SHOULDER INJ W/ULTRASOUND/CONFIRMED HPI Details 62-year-old male who presents today to t he office for a right shoulder injection. The patient was referred by MORGAN Small. Denies any recent cough, cold, infection, fever or other significant changes in medical history since last office visit. [facility] Medical History Sleep apnea Asthma GERD (gastroesophageal reflux disease) Tubular adenoma Abdominal pain Screening for prostate cancer Depression Fatigue Epidermal inclusion cyst Surgical History History of bunionectomy History of excision of epidermal inclusion cyst (~09/17/20) History of colonoscopy (~05/2011) History of esophagogastroduodenoscopy (EGD) (~05/2011) History of left knee surgery (~04/2016) History of hernia repair (~1990) History of removal of cyst (~04/2019) Family History Father History of hypertension History of heart disease History of diabetes mellitus Mother History of skin cancer Sister History of arthritis History of colon cancer History of breast cancer Mental health disorder Son No problems noted. Daughter No problems noted. Social History Housing: Apartment Alcohol intake: never Patient Tobacco Use Status: Former Tobacco user Quit Date: age 46 Tobacco use type: Cigarette e-Cigarette/Vaping Use: Never Used Second Hand Smoke Exposure: No service: No Current occupational status: unemployed and disabled Current occupation: left hand Cognitive needs: No Hearing needs: No Vision needs: No Review of Systems Const All systems reviewed & are unremarkable except as noted in HPI and below Physical Exam Vital Signs: Last Vital Signs Pulse 60 06/09/23 08:09 Resp 12 06/09/23 08:09 Pulse Ox 97 06/09/23 08:09 Oxygen Delivery Method Room Air 06/09/23 08:09 BMI result Body Mass Index 29.0 General: Appears afebrile. Alert and oriented. Mood and affect appropriate. Follows and participates in conversation appropriately. Respiratory effort is unlabored. Able to transition from sit to stand unassisted. Ambulates with bilaterally normal heel strike and toe off. Office Procedures Joint Injection/Drain Joint Injection/Drain Details: Right subacromial bursa injection. ultrasound guided Primary Site: right shoulder Prep: site was prepped using aseptic technique and site was prepped using sterile technique Injected: Kenalog (30 mg), with 3 mL of (ropivacaine 0.5%) and in the subcromial space (right) Approach Used: posterolateral Procedure: there was some relief with the local anesthesia Coding Details: An ultrasound image of the injection was taken and stored in the permanent record. - Acromioclavicular with ultrasound guidance Procedure code (CPT) selection complete Joint Injection/Drain Joint Injection/Drain Details: Right acromioclavicular joint injection, ultrasound guided Primary Site: right shoulder Prep: site was prepped using sterile technique Injected: 10 mg of, Kenalog, with 1 mL of (ropivacaine 0.5%) and in the joint Approach Used: anterior Procedure: The patient tolerated the procedure well Coding Details: An ultrasound image of the injection was taken and stored in the permanent record. 70815 - Acromioclavicular with ultrasound guidance Procedure code (CPT) selection complete Results Reviewed Results Reviewed: No imaging is available for review. Assessment & Plan Assessment & Plan (1) Acromioclavicular joint arthritis: Code(s): M19.019 - Primary osteoarthritis, unspecified shoulder Qualifiers: Laterality: right Qualified Code(s): M19.011 - Primary osteoarthritis, right shoulder (2) Right rotator cuff tendinitis: Code(s): M75.81 - Other shoulder lesions, right shoulder Plan Patient is status post right acromioclavicular joint injection, ultrasound guided and right subacromial bursa injection, ultrasound guided. Patient tolerated procedure well and was discharged home in stable condition with discharge instructions. All questions were answered. We will follow-up in two weeks via telephone or in clinic to assess response to therapy. A follow-up appointment was made during today's visit. Scribed for Dr. Black by Robel Capps, biomedical scientist, on 06/09/2023. I, Dr. Black, have personally reviewed and agree with the information entered by the scribe. Coding Level of Care Code Procedure Only Diagnoses Arthritis of right acromioclavicular joint M19.011 Laterality: right Right rotator cuff tendinitis M75.81 CPT Codes Coding - Joint 6: 78739 - Acromioclavicular with ultrasound guidance ([id number]) Coding - Joint 6: 88282 - Acromioclavicular with ultrasound guidance ([id number])
== END 2023-06-09 08:36 | disposition home or self-care (01) ==
PROVIDERS: PCP Internal Medicine; Visit Provider Internal Medicine
DX: M19.011 Primary osteoarthritis, right shoulder (principal); M75.81 Other shoulder lesions, right shoulder
CPT/HCPCS: 20606

== ENCOUNTER → 2023-06-09 08:05 | Outpatient (BNVA) | payer MEDICARE, MEDICAID, SELFPAY | PROVIDERS: PCP Internal Medicine; Visit Provider Internal Medicine | DX: M19.011 Primary osteoarthritis, right shoulder (principal); M75.81 Other shoulder lesions, right shoulder | CPT/HCPCS: 20606; J0665; J3301 ==

== ENCOUNTER 2023-08-03 10:08 | Outpatient (AMB) | payer MEDICARE, MEDICAID, SELFPAY ==
[2023-08-03 10:11] VITALS: BP 114/70; PULSE 70; O2SAT 98; BMI 28.4
--- NOTE | 2023-08-03 10:11 | A.OFFPC_ITS ---
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: No Corporate Legal Intern: Not Required per policy Accompanied by: Self / Same As Patient Allergies shellfish derived Allergy (Severe, Verified 08/03/23 10:11) Anaphylaxis Medication List - Last Reconciled 08/03/23 by Getachew Colunga MD albuterol sulfate 90 mcg/actuation (Ventolin HFA) 2 puffs inhalation Q4-6H PRN Breo Ellipta 200-25 mcg/dose (fluticasone furoate-vilanterol) 1 inh inhalation DAILY 30 days NS cholecalciferol (vitamin D3) 25 mcg PO DAILY clonazepam 0.5 mg PO BID clonidine HCl 0.2 - 0.4 mg PO BID diclofenac sodium 1% (Arthritis Pain (diclofenac)) 4 grams topical QID fluoxetine 40 mg PO DAILY ibuprofen 800 mg PO TID ipratropium-albuterol 0.5 mg-3 mg(2.5 mg base)/3 mL 3 mL inhalation QID PRN magnesium oxide 400 mg PO DAILY omeprazole 20 mg PO BID quetiapine 400 mg PO BID tadalafil (Cialis) 20 mg PO DAILY 90 days tadalafil (Cialis) 5 mg PO DAILY 90 days tamsulosin 0.4 mg PO BEDTIME 90 days umeclidinium 62.5 mcg/actuation (Incruse Ellipta) 1 inh inhalation DAILY Tobacco use date assessed: 08/03/23 Dental Screening Dental Screen Date: 08/03/23 Did you have a dental visit in the last 12 months?: Yes Did you have a dental problem in the last 6 months where you did not have access to dental care?: No Was dental information given to patient?: Patient has dentist HPI rt side chest pain HPI Details several months of right sided chest pain PFSH Medical History Sleep apnea Asthma GERD (gastroesophageal reflux disease) Tubular adenoma Abdominal pain Screening for prostate cancer Depression Fatigue Epidermal inclusion cyst Surgical History History of bunionectomy History of excision of epidermal inclusion cyst (~04/09/20) History of colonoscopy (~05/2011) History of esophagogastroduodenoscopy (EGD) (~05/2011) History of left knee surgery (~04/2016) History of hernia repair (~1990) History of removal of cyst (~04/2019) Family History Father History of hypertension History of heart disease History of diabetes mellitus Mother History of skin cancer Sister History of arthritis History of colon cancer History of breast cancer Mental health disorder Son No problems noted. Daughter No problems noted. Social History Housing: Apartment Alcohol intake: never Patient Tobacco Use Status: Former Tobacco user Quit Date: age 46 Tobacco use type: Cigarette e-Cigarette/Vaping Use: Never Used Second Hand Smoke Exposure: No service: No Current occupational status: unemployed and disabled Current occupation: left hand Cognitive needs: No Hearing needs: No Vision needs: No Questionnaire PHQ-9 Over the last 2 weeks, how often have you been bothered by any of the following problems? 1. Little interest or pleasure in doing things: not at all 2. Feeling down, depressed, or hopeless: not at all 3. Trouble falling or staying asleep, or sleeping too much: not at all 4. Feeling tired or having little energy: not at all 5. Poor appetite or overeating: not at all 6. Feeling bad about yourself - or that you are a failure or have let yourself or your family down: not at all 7. Trouble concentrating on things, such as reading the newspaper or watching television: not at all 8. Moving or speaking so slowly that other people could have noticed. Or the opposite - being so fidgety or restless that you have been moving around a lot more than usual: not at all 9. Thoughts that you would be better off or of hurting yourself in some way: not at all Total score: 0 Depression Screening Interpretation: Negative Depression Screening Done: Yes 25468 - PHQ-9 Billing: Yes Source: Developed by Drs. Red Duggan, Ashley Jhaveri, Humberto Barreto and colleagues, with an educational waylon from [employer]. Thrive Questionnaire Date Thrive assessed: 08/03/23 I am a: Patient What is your living situation today?: I have a steady place to live Within the past 12 months, did the food you bought not last and you didn't have the money to get more?: Never true Within the past 12 months, did you worry whether your food would run out before you got money to buy more?: Never true Do you have trouble paying for medicines?: No Do you have trouble getting transportation to medical appointments?: No Do you have trouble paying your heating and electricity bill?: No Do you have trouble taking care of your child, family member or friend?: No Do you have trouble with day-to-day activities such as bathing, preparing meals, shopping, managing finances, etc.?: No Are you currently unemployed and looking for a job?: No Are you interested in more education?: No Please select the resources that you would like help with: None AUDIT C Alcohol Use Questionnaire (AUDIT-C) 1. How often do you have a drink containing alcohol?: Never Total Score: 0 Score Reviewed/Action Taken: No GUS-7 AMB Questionnaire GUS-7 Date GUS - 7 assessed: 08/03/23 Feeling nervous, anxious, or on edge: 0 = Not at all Not being able to stop or control worryin = Not at all Worrying too much about different things: 0 = Not at all Trouble relaxin = Not at all Being so restless that it is hard to sit still: 0 = Not at all Becoming easily annoyed or irritable: 0 = Not at all Feeling afraid as if something awful might happen: 0 = Not at all Total GUS-7 score (0-4 normal; 5-9 mild; 10-14 moderate; 15-21 severe): 0 Source: Developed by Drs. Red Duggan, Ashley Jhaveri, Humberto Barreto and colleagues, with an educational waylon from [employer]. Review of Systems Const Denies chills, Denies headache(s) and Denies weight loss ENT Denies headache(s) Card Denies syncope, Denies irregular heart rhythm and Denies dyspnea Resp Denies chest congestion, Denies cough and Denies dyspnea GI Denies abdominal pain, Denies change in stool character, Denies nausea and Denies vomiting Musc Denies deformity and Denies joint swelling Neuro Denies syncope and Denies headache(s) Physical exam (Primary Care) Vital Signs: Last Vital Signs Pulse 70 08/03/23 10:11 BP 114/70 08/03/23 10:11 Pulse Ox 98 08/03/23 10:11 Oxygen Delivery Method Room Air 08/03/23 10:11 BMI result Body Mass Index 28.4 Tobacco/Smoking Status: Tobacco use Status Tobacco use date assessed 08/03/23 08/03/23 10:12 Patient Tobacco Use Status Former Tobacco user 08/03/23 10:12 Tobacco use type Cigarette 08/03/23 10:12 e-Cigarette/Vaping Use Never Used 08/03/23 10:12 PHQ-9: PHQ-9 Score PHQ-9: Total score 0 08/03/23 10:12 Depression Screening Interpretation: Negative Thrive Assessment: Date of Thrive Assessment Date Thrive assessed 08/03/23 08/03/23 10:12 Const General: cooperative, comfortable, no acute distress and alert Neck Neck: Yes no lymphadenopathy Thyroid: Thyroid normal Resp Effort & Inspection: normal respiratory effort Auscultation: clear to auscultation bilaterally Percussion: percussion normal Cardio Jugular venous distension: no JVD Palpation: normal PMI Rate: regular rate Rhythm: regular rhythm Heart sounds: S1 normal heart sound present and S2 normal heart sound present GI Inspection: Yes normal to inspection Palpation (GI): No hepatosplenomegaly present Skin General skin exam: no rashes or lesions noted Extrem General: Yes no clubbing, cyanosis or edema Assessment and Plan Assessment & Plan (1) Chest pain: Code(s): R07.9 - Chest pain, unspecified Plan: cxr and ekg Orders: Orders XR chest 2V Today R07.9 - Chest pain, unspecified ECG 12 lead EKG Today R07.9 - Chest pain, unspecified Medications: Refilled diclofenac sodium 1% (Arthritis Pain (diclofenac)) apply to single knee, ankle, foot; for foot includes sole/toes/top of foot 4 grams topical QID 100 grams 3RF Coding Level of Care Code Est Pt Level 3 (61594) Diagnoses Chest pain R07.9
== END 2023-08-03 10:47 | disposition home or self-care (01) ==
PROVIDERS: PCP Internal Medicine; Visit Provider Internal Medicine
DX: R07.9 Chest pain, unspecified (principal)
CPT/HCPCS: 99213

== ENCOUNTER → 2023-08-03 11:02 | Outpatient (REF) | payer MEDICARE, MEDICAID, SELFPAY ==
--- NOTE | ~2023-08-03 | XR_ITS ---
EXAMINATION: XR CHEST CLINICAL INFORMATION: Chest pain. COMPARISON: CT chest 05/19/2023 and chest radiograph 04/12/2023. TECHNIQUE: 2 views of the chest were obtained. FINDINGS: The heart and pulmonary vessels appear normal. No evidence of CHF, lung masses, or pleural effusions. No gross consolidation. The bony thorax is unremarkable. XR/XR chest 2V IMPRESSION: No acute intrathoracic disease.
--- NOTE | 2023-08-03 11:09 | ECG_ITS ---
Test Reason : chest pain Blood Pressure : / mmHG Vent. Rate : 064 BPM Atrial Rate : 064 BPM P-R Int : 168 ms QRS Dur : 074 ms QT Int : 380 ms P-R-T Axes : 073 -48 020 degrees QTc Int : 392 ms Normal sinus rhythm Left axis deviation Low voltage QRS Abnormal ECG When compared with ECG of 26-JAN-2016 16:30, No significant changes seen Referred By: Getachew Colunga Electronically Signed By:ANDI BETANCOURT MD
== END ==
LOC: HO.CARD 11:02
PROVIDERS: PCP Internal Medicine; Visit Provider Internal Medicine
DX: R07.9 Chest pain, unspecified (principal)
CPT/HCPCS: 71046; 93005

== ENCOUNTER → 2023-08-03 11:09 | Outpatient (BNV) | payer MEDICARE, MEDICAID, SELFPAY | PROVIDERS: PCP Internal Medicine; Visit Provider Internal Medicine Cardiovascular Disease | DX: R94.31 Abnormal electrocardiogram [ECG] [EKG] (principal); R07.9 Chest pain, unspecified | CPT/HCPCS: 93010 ==

== ENCOUNTER 2023-09-15 08:34 | Outpatient (AMB) | payer MEDICARE, MEDICAID, SELFPAY ==
[2023-09-15 08:43] VITALS: BP 122/68; PULSE 69; O2SAT 98; BMI 28.9
--- NOTE | 2023-09-15 08:43 | MHC.PC.OV ---
Vital Signs 09/15/23 08:43 Height 5 ft 11 in Weight 207 lb BMI 28.9 BP 122/68 Blood Pressure Location Lt brachial Position Sitting Pulse 69 Pulse Source Pulse Oximeter Pulse Oximetry (%) 98 Oxygen Delivery Method Room Air Intake Visit Reasons: Annual exam Longitudinal Float Operator Required: No Renal Technician: Not Required per policy Accompanied by: Self / Same As Patient Allergies shellfish derived Allergy (Severe, Verified 09/15/23 08:44) Anaphylaxis Medication List - Last Reconciled 09/15/23 by Getachew Colunga MD albuterol sulfate 90 mcg/actuation (Ventolin HFA) 2 puffs inhalation Q4-6H PRN Breo Ellipta 200-25 mcg/dose (fluticasone furoate-vilanterol) 1 inh inhalation DAILY 30 days NS cholecalciferol (vitamin D3) 25 mcg PO DAILY clonazepam 0.5 mg PO BID clonidine HCl 0.2 - 0.4 mg PO BID diclofenac sodium 1% (Arthritis Pain (diclofenac)) 4 grams topical QID fluoxetine 40 mg PO DAILY ibuprofen 800 mg PO TID ipratropium-albuterol 0.5 mg-3 mg(2.5 mg base)/3 mL 3 mL inhalation QID PRN magnesium oxide 400 mg PO DAILY omeprazole 20 mg PO BID quetiapine 400 mg PO BID tadalafil (Cialis) 20 mg PO DAILY 90 days tadalafil (Cialis) 5 mg PO DAILY 90 days tamsulosin 0.4 mg PO BEDTIME 90 days umeclidinium 62.5 mcg/actuation (Incruse Ellipta) 1 inh inhalation DAILY Tobacco use date assessed: 08/03/23 Dental Screening Dental Screen Date: 09/15/23 Did you have a dental visit in the last 12 months?: Yes Did you have a dental problem in the last 6 months where you did not have access to dental care?: No Was dental information given to patient?: Patient has dentist HPI Annual exam HPI Details COPD annxiety and knee osteoarthritis PFSH Medical History Sleep apnea Asthma GERD (gastroesophageal reflux disease) Tubular adenoma Abdominal pain Screening for prostate cancer Depression Fatigue Epidermal inclusion cyst Surgical History History of bunionectomy History of excision of epidermal inclusion cyst (~04/09/20) History of colonoscopy (~05/2011) History of esophagogastroduodenoscopy (EGD) (~05/2011) History of left knee surgery (~04/2016) History of hernia repair (~1990) History of removal of cyst (~04/2019) Family History Father History of hypertension History of heart disease History of diabetes mellitus Mother History of skin cancer Sister History of arthritis History of colon cancer History of breast cancer Mental health disorder Son No problems noted. Daughter No problems noted. Social History Housing: Apartment Alcohol intake: never Patient Tobacco Use Status: Former Tobacco user Quit Date: age 46 Tobacco use type: Cigarette e-Cigarette/Vaping Use: Never Used Second Hand Smoke Exposure: No service: No Current occupational status: unemployed and disabled Current occupation: left hand Cognitive needs: Yes Hearing needs: No Vision needs: No Questionnaire Thrive Questionnaire Date Thrive assessed: 08/03/23 GUS-7 AMB Questionnaire GUS-7 Date GUS - 7 assessed: 08/03/23 Source: Developed by Drs. Red Duggan, Ashley Jhaveri, Humberto Barreto and colleagues, with an educational waylon from [employer]. Review of Systems Const Denies chills, Denies fatigue, Denies headache(s) and Denies weight loss Eyes Denies change in vision, Denies diplopia and Denies eye pain ENT Denies vertigo, Denies dizziness, Denies headache(s) and Denies nasal discharge Card Denies chest pain, Denies rapid heart rate and Denies dyspnea on exertion Resp Denies chest congestion, Denies cough, Denies pain with cough and Denies dyspnea on exertion GI Denies abdominal pain, Denies hematochezia and Denies change in bowel habits Musc Denies myalgias, Denies arthralgias and Denies joint swelling Skin/Breast Denies lesions and Denies unusual bruising Neuro Denies vertigo, Denies dizziness, Denies headache(s) and Denies focal weakness Endo Denies fatigue Physical exam (Primary Care) Vital Signs: Last Vital Signs Pulse 69 09/15/23 08:43 BP 122/68 09/15/23 08:43 Pulse Ox 98 09/15/23 08:43 Oxygen Delivery Method Room Air 09/15/23 08:43 BMI result Body Mass Index 28.9 Tobacco/Smoking Status: Tobacco use Status Tobacco use date assessed 08/03/23 09/15/23 08:48 Patient Tobacco Use Status Former Tobacco user 09/15/23 08:48 Tobacco use type Cigarette 09/15/23 08:48 e-Cigarette/Vaping Use Never Used 09/15/23 08:48 Thrive Assessment: Date of Thrive Assessment Date Thrive assessed 08/03/23 09/15/23 08:48 Const General: cooperative, healthy appearing and no acute distress Orientation/consciousness: oriented to person, oriented to place and oriented to time HENMT Head: Yes normal to inspection, Yes normocephalic and Yes atraumatic Mouth: Normal oral and palatal mucosa present and tongue normal Throat: Yes posterior oropharynx normal and Yes uvula midline Eyes General: appearance normal, both eyes and all related structures Neck Neck: Yes normal visual inspection, Yes full ROM and Yes no lymphadenopathy Thyroid: Thyroid normal Carotids: normal carotid upstroke Chest Chest palpation & inspection: normal inspection of the chest Resp Effort & Inspection: normal respiratory effort and able to speak in complete sentences Auscultation: clear to auscultation bilaterally Cardio Jugular venous distension: no JVD Palpation: normal PMI Rate: regular rate Rhythm: regular rhythm Heart sounds: S1 normal heart sound present and S2 normal heart sound present GI Inspection: Yes normal to inspection Palpation (GI): Soft to palpation and No hepatosplenomegaly present Auscultation: normal bowel sounds General: Yes no CVA tenderness Back/Spine/Pelvis Back: no CVA tenderness Skin General skin exam: no rashes or lesions noted Neuro General: oriented to person, oriented to place and oriented to time Extrem General: Yes normal to inspection and Yes full ROM Assessment and Plan Assessment & Plan (1) Physical exam: Code(s): Z00.00 - Encounter for general adult medical examination without abnormal findings Plan: stable; do labs (2) Asthma: Code(s): J45.909 - Unspecified asthma, uncomplicated Qualifiers: Asthma severity: mild Asthma persistence: persistent Asthma complication type: with status asthmaticus Qualified Code(s): J45.32 - Mild persistent asthma with status asthmaticus Plan: as per pulm; stable (3) Anxiety: Code(s): F41.9 - Anxiety disorder, unspecified Plan: same rx (4) Osteoarthritis of knees, bilateral: Code(s): M17.0 - Bilateral primary osteoarthritis of knee Plan: same rx Orders: Orders Lipid Panel Today E78.5 - Hyperlipidemia, unspecified, R59.0 - Localized enlarged lymph nodes Complete Blood Count Auto Diff Today D64.9 - Anemia, unspecified, R59.0 - Localized enlarged lymph nodes Comprehensive [place]. Panel Fast Today N28.9 - Disorder of kidney and ureter, unspecified, R59.0 - Localized enlarged lymph nodes Coding Level of Care Code Est Pt Prev Care 40-64y(46619) Diagnoses Physical exam Z00.00 Mild persistent asthma with status asthmaticus J45.32 Asthma severity: mild Asthma persistence: persistent Asthma complication type: with status asthmaticus Anxiety F41.9 Osteoarthritis of knees, bilateral M17.0
== END 2023-09-15 09:56 | disposition home or self-care (01) ==
PROVIDERS: Visit Provider Internal Medicine
DX: Z00.00 Encounter for general adult medical examination without abnormal findings (principal); J45.32 Mild persistent asthma with status asthmaticus; F41.9 Anxiety disorder, unspecified; M17.0 Bilateral primary osteoarthritis of knee
CPT/HCPCS: 99396

== ENCOUNTER 2023-11-08 08:11 | Outpatient (REF) | payer MEDICARE, MEDICAID, SELFPAY ==
--- NOTE | ~2023-11-08 | XR_ITS ---
EXAMINATION: XR KNEE, RIGHT CLINICAL INFORMATION: Pain. COMPARISON: Prior radiographs, most recently 04/06/2023. TECHNIQUE: AP standing and axial views of the right knee are submitted. FINDINGS: No fracture or joint effusion. Alignment is anatomic. Joint spaces are maintained. No abnormal soft tissue calcification. XR/XR knee LT 2V IMPRESSION: Normal right knee. EXAMINATION: XR KNEE, LEFT CLINICAL INFORMATION: Pain. COMPARISON: Prior radiographs, most recently 04/06/2023. TECHNIQUE: AP standing and axial views of the left knee are submitted. FINDINGS: No fracture or joint effusion. Alignment is anatomic. Joint spaces are maintained. No abnormal soft tissue calcification. IMPRESSION: Normal left knee.
--- NOTE | ~2023-11-08 | XR_ITS ---
EXAMINATION: XR KNEE, RIGHT CLINICAL INFORMATION: Pain. COMPARISON: Prior radiographs, most recently 04/06/2023. TECHNIQUE: AP standing and axial views of the right knee are submitted. FINDINGS: No fracture or joint effusion. Alignment is anatomic. Joint spaces are maintained. No abnormal soft tissue calcification. XR/XR knee RT 2V IMPRESSION: Normal right knee. EXAMINATION: XR KNEE, LEFT CLINICAL INFORMATION: Pain. COMPARISON: Prior radiographs, most recently 04/06/2023. TECHNIQUE: AP standing and axial views of the left knee are submitted. FINDINGS: No fracture or joint effusion. Alignment is anatomic. Joint spaces are maintained. No abnormal soft tissue calcification. IMPRESSION: Normal left knee.
== END 2023-11-08 08:12 | disposition home or self-care (01) ==
LOC: HO.HOSX 08:11
PROVIDERS: Visit Provider Physician Assistant
DX: M22.2X2 Patellofemoral disorders, left knee (principal); M22.2X1 Patellofemoral disorders, right knee
CPT/HCPCS: 20610; 73560; 99212; J1010

== ENCOUNTER 2023-11-08 12:34 | Outpatient (AMB) | payer MEDICARE, MEDICAID, SELFPAY ==
[2023-11-08 12:54] VITALS: BMI 28.9
--- NOTE | 2023-11-08 12:54 | MHC.OFFVIS ---
Intake Vital Signs 11/08/23 12:54 Height 5 ft 11 in Weight 207 lb BMI 28.9 Intake Visit Reasons: N/prob B/L knee O.A LT >RT Intake Note: Jeaneth 63 year old male who presents today for an evaluation of bilateral knee pain. Patient reports bilateral knee pain for years with his left knee being the worse. He states his left knee cracks and at times feels unstable, like his knee will give out. He uses a knee brace however he is requesting a new brace as the velcro on his knee brace no longer sticks. Allergies shellfish derived Allergy (Severe, Verified 11/08/23 12:55) Anaphylaxis HPI N/prob B/L knee O.A LT >RT HPI Details 63-year-old male who presents to the office today for evaluation of bilateral knee pain. He states he has bilateral knee pain which is worse on his left knee. He also c/o instability in his knee and feels as it will give out. He reports he hears cracking in his knee with flexion. He has not had any injection or physical therapy in the past. He is requesting a new brace. [facility] Medical History Sleep apnea Asthma GERD (gastroesophageal reflux disease) Tubular adenoma Abdominal pain Screening for prostate cancer Depression Fatigue Epidermal inclusion cyst Surgical History History of bunionectomy History of excision of epidermal inclusion cyst (~04/09/20) History of colonoscopy (~05/2011) History of esophagogastroduodenoscopy (EGD) (~05/2011) History of left knee surgery (~04/2016) History of hernia repair (~1990) History of removal of cyst (~04/2019) Family History Father History of hypertension History of heart disease History of diabetes mellitus Mother History of skin cancer Sister History of arthritis History of colon cancer History of breast cancer Mental health disorder Son No problems noted. Daughter No problems noted. Social History Housing: Apartment Alcohol intake: never Patient Tobacco Use Status: Former Tobacco user Quit Date: age 46 Tobacco use type: Cigarette e-Cigarette/Vaping Use: Never Used Second Hand Smoke Exposure: No service: No Current occupational status: unemployed and disabled Current occupation: left hand Cognitive needs: Yes Hearing needs: No Vision needs: No Review of Systems Const All systems reviewed & are unremarkable except as noted in HPI and below Physical Exam Vital Signs: BMI result Body Mass Index 28.9 Extrem Other: Right knee: Skin intact, no erythema or joint effusion. Tenderness along the medial and lateral joint line. Full ROM with crepitus. Negative Angella?s. No ligamentous laxity. NVI. Left knee: Skin intact, no erythema or joint effusion. Lateral retropatellar tenderness present. Full ROM with crepitus. Negative Angella?s. No ligamentous laxity. NVI. Office Procedures Joint Injection/Drain Joint Injection/Drain Primary Site: left knee Prep: site was prepped using aseptic technique, ethochloride spray was applied and injection warnings given Injected: 80 mg of, DepoMedrol, with 8 mL of, 1% plain lidocaine and in the joint Approach Used: anterolateral Procedure: The patient tolerated the procedure well and there was some relief with the local anesthesia Coding 35234 - Glenohumeral/Tronchanteric Bursa/Intraarticular Procedure code (CPT) selection complete Results Reviewed Results Reviewed: Xrays were obtained in the office today and personally reviewed by me of yesenia knee show patella lateraliztion with mild pf oa Assessment & Plan Assessment & Plan (1) Patellofemoral disorder of both knees: Code(s): M22.2X1 - Patellofemoral disorders, right knee; M22.2X2 - Patellofemoral disorders, left knee Plan We discussed options today which include steroid injection. They did consent to move forward with the left knee injection, which was tolerated well. I recommended rest, ice and elevation and OTC anti-inflammatories PRN for discomfort. He was also given a left knee brace in the office today. If symptoms persist or worsens over the next 6-8 weeks, patient will contact the office, otherwise follow-up as needed. Orders: Orders XR knee RT 2V Today M25.569 - Pain in unspecified knee XR knee LT 2V Today M25.562 - Pain in left knee Patient Instructions: Scribed for Jacques Sanchez PA-C, by Chuck Cox medical record librarian, on 11/08/2023 at 1:00 PM EST. I, Jacques Sanchez PA-C, have personally reviewed and agree with the information entered by the scribe. Coding Level of Care Code Est Pt Level 3 (24416) Diagnoses Patellofemoral disorder of both knees M22.2X1; M22.2X2 CPT Codes Coding - Joint 7: 23536 - Glenohumeral/Tronchanteric Bursa/Intraarticular ([id number])
== END 2023-11-08 13:38 | disposition home or self-care (01) ==
PROVIDERS: PCP Internal Medicine; Visit Provider Physician Assistant
DX: M22.2X1 Patellofemoral disorders, right knee (principal); M22.2X2 Patellofemoral disorders, left knee
CPT/HCPCS: 20610; 99213

== ENCOUNTER 2023-11-21 08:49 | Outpatient (AMB) | payer MEDICARE, MEDICAID, SELFPAY ==
--- NOTE | 2023-11-21 09:03 | MHC.OFFVIS ---
Intake Visit Reasons: 6m follow up Intake Note: Patient is present for follow up erectile dysfunction/nocturia Urology Medications: tamsulosin/tadalafil Blood Thinner: none PVR: 15ml's Licensing Manager Required: Yes Licensing Manager Name: SANDRA GARNETTBRENDA Accompanied by: Self / Same As Patient Allergies shellfish derived Allergy (Severe, Verified 11/21/23 21:02) Anaphylaxis Medication List - Last Reconciled 11/21/23 by Qian Machuca PREHEMMER- albuterol sulfate 90 mcg/actuation (Ventolin HFA) 2 puffs inhalation Q4-6H PRN Breo Ellipta 200-25 mcg/dose (fluticasone furoate-vilanterol) 1 inh inhalation DAILY 30 days NS cholecalciferol (vitamin D3) 25 mcg PO DAILY clonazepam 0.5 mg PO BID clonidine HCl 0.2 - 0.4 mg PO BID diclofenac sodium 1% (Arthritis Pain (diclofenac)) 4 grams topical QID fluoxetine 40 mg PO DAILY ibuprofen 800 mg PO TID ipratropium-albuterol 0.5 mg-3 mg(2.5 mg base)/3 mL 3 mL inhalation QID PRN [left knee brace As directed] magnesium oxide 400 mg PO DAILY omeprazole 20 mg PO BID quetiapine 400 mg PO BID [Shower chair As directed] tadalafil (Cialis) 20 mg PO DAILY 90 days tadalafil (Cialis) 5 mg PO DAILY 90 days tamsulosin 0.4 mg PO BEDTIME 90 days umeclidinium 62.5 mcg/actuation (Incruse Ellipta) 1 inh inhalation DAILY HPI Comments Details: Amado is a pleasant 63-year-old Lithuanian-speaking patient of Dr. Colunga. He has a past medical history of sleep apnea, asthma, GERD, depression, and fatigue. He presents to the office today for follow-up of his erectile dysfunction, low libido, and urinary urgency. In discussion with the patient today he reports to be doing and feeling well. He reports to be having adequate erections for penetration with daily dose of Cialis as well as p.r.n. on demand dosing prior to sexual activity. He reports to be happy with current voiding parameters on 0.4 mg of Flomax. He currently denies any bothersome urinary issues or concerns. He denies urinary urgency, urinary frequency, incontinence, nocturia, hematuria, dysuria, foul smelling urine, changes to urinary stream, flank pain, fever, and or chills. Previous workup has included testosterone free and total Testosterone 12/13 401, free testosterone 52.9 Discussed at length importance of adequate sleep, healthy eating habits, daily exercise/brisk walking daily and maintaining healthy weight. In office urinalysis results reviewed with the patient today. PVR 15ml's. He otherwise offers no other issues or concerns at this time. PSA's are as follows: 03/14 0.6, 09/15 0.4 PFSH Medical History Sleep apnea Asthma GERD (gastroesophageal reflux disease) Tubular adenoma Abdominal pain Screening for prostate cancer Depression Fatigue Epidermal inclusion cyst Surgical History History of bunionectomy History of excision of epidermal inclusion cyst (~04/09/20) History of colonoscopy (~05/2011) History of esophagogastroduodenoscopy (EGD) (~05/2011) History of left knee surgery (~04/2016) History of hernia repair (~1990) History of removal of cyst (~04/2019) Family History Father History of hypertension History of heart disease History of diabetes mellitus Mother History of skin cancer Sister History of arthritis History of colon cancer History of breast cancer Mental health disorder Son No problems noted. Daughter No problems noted. Social History Housing: Apartment Alcohol intake: never Patient Tobacco Use Status: Former Tobacco user Quit Date: age 46 Tobacco use type: Cigarette e-Cigarette/Vaping Use: Never Used Second Hand Smoke Exposure: No service: No Current occupational status: unemployed and disabled Current occupation: left hand Cognitive needs: Yes Hearing needs: No Vision needs: No Review of Systems Const Reports as per HPI Eyes Reports no additional complaints ENT Reports as per HPI Card Reports no additional complaints Resp Reports as per HPI GI Reports as per HPI Reports as per HPI Musc Reports no additional complaints Neuro Reports as per HPI Psych Reports as per HPI Endo Reports no additional complaints Physical Exam Const General: cooperative, healthy appearing, comfortable, no acute distress, well developed, alert and awake Nutritional Appearance: average body habitus Orientation/consciousness: patient oriented x3 Limitations: no limitations HEENT Head: Yes normal to inspection, Yes normocephalic and Yes atraumatic Ears: hearing grossly normal bilaterally Eyes General: appearance normal, both eyes and all related structures Neck Neck: Yes normal visual inspection and Yes trachea midline Chest Chest palpation & inspection: normal inspection of the chest Resp Effort & Inspection: normal respiratory effort and able to speak in complete sentences Cardio Rate: regular rate GI Inspection: Yes normal to inspection General: Yes no CVA tenderness Back/Spine/Pelvis Back: no CVA tenderness Skin General skin exam: no rashes or lesions noted Neuro General: patient oriented x3 Extrem General: Yes normal to inspection Psych Appearance: grossly normal and well kempt Mental Status: mental status grossly normal Speech and movement: Normal speech and movement present and Clear speech present Affect: normal affect Attitude: cooperative Thought process: Normal thought process present Thought content: Normal thought content present Insight: Fair insight present (Psych) Judgement: Fair judgement present (Psych) Office Procedures Post Void Residual Post Residual Void Post Void Residual (PVR): 15 11797-Tcht Void Residual by ultrasound Assessment & Plan Assessment & Plan (1) Erectile dysfunction: Code(s): N52.9 - Male erectile dysfunction, unspecified Category: Medical (2) Low libido: Code(s): R68.82 - Decreased libido Category: Medical (3) Nocturia: Code(s): R35.1 - Nocturia Category: Medical Plan In office urinalysis results reviewed with the patient today; as noted above. PVR 15 mL Patient reports to be happy with current voiding parameters on 0.4 mg of Flomax; will continue. Continue Cialis 5 mg daily with p.r.n. dosing 1 hours prior to sexual activity Discussed at length importance of compliance with sleep apnea for improvement in erections as well as overall health and well-being. Discussed at length importance of adequate sleep, healthy eating habits, and daily activity for improvement erections as well as overall health and well-being. Patient denies any bothersome urinary issues or concerns at this time. Will obtain PSA Follow-up in 6 months with PSA to be completed prior and PVR at next office visit; or sooner with any issues, concerns, and or questions. Orders: Orders AMB Post Void Residual by ultrasound Today R35.1 - Nocturia Prostate Specific Antigen 6 Months N40.0 - Benign prostatic hyperplasia without lower urinary tract symptoms Patient Instructions: The patient had an opportunity to ask questions regarding the treatment plan. All questions were answered. Physical exam, labs, and imaging were discussed and reviewed in detail. As well as risks, benefits, and discussion of treatment choices. No major barriers to understanding were identified. The patient expressed understanding and agreement with the above treatment plan. The patient was made aware they should contact our office by phone for worsening of their current condition, the appearance of new symptoms, or with any questions or concerns. Compliance is encouraged with any medications and follow up testing that is ordered. It is a privilege to be allowed the opportunity to participate in? your urological care.? Again, if you have any questions or concerns If you have any questions or concerns please do not hesitate to contact me. The office is [phone]. This note is constructed using voice recognition software. While every effort has been made to ensure accuracy sampler and test preparer errors may have been included. Yours sincerely, YARITZA Guerrero Coding Level of Care Code Est Pt Level 3 (16067) Diagnoses Erectile dysfunction N52.9 Low libido R68.82 Nocturia R35.1 CPT Codes Post Residual Void - PVR CPT Code: 48538-Horc Void Residual by ultrasound ([id number])
== END 2023-11-21 09:33 | disposition home or self-care (01) ==
PROVIDERS: PCP Internal Medicine; Visit Provider Nurse Practitioner Family
DX: N52.9 Male erectile dysfunction, unspecified (principal); R68.82 Decreased libido; R35.1 Nocturia
CPT/HCPCS: 99213

== ENCOUNTER → 2023-11-21 08:49 | Outpatient (BNVA) | payer MEDICARE, MEDICAID, SELFPAY | PROVIDERS: PCP Internal Medicine; Visit Provider Nurse Practitioner Family | DX: N52.9 Male erectile dysfunction, unspecified (principal); R68.82 Decreased libido; R35.1 Nocturia | CPT/HCPCS: 51798; 99212 ==

== ENCOUNTER 2024-02-20 11:16 | Outpatient (AMB) | payer MEDICARE, MEDICAID, SELFPAY ==
[2024-02-20 11:25] VITALS: BP 130/70; PULSE 67; O2SAT 98; BMI 29.0
--- NOTE | 2024-02-20 11:25 | A.OFFPC_ITS ---
Vital Signs 02/20/24 11:25 Height 5 ft 11 in Weight 208 lb BMI 29.0 BP 130/70 Blood Pressure Location Lt brachial Position Sitting Pulse 67 Pulse Source Pulse Oximeter Pulse Oximetry (%) 98 Oxygen Delivery Method Room Air Intake Visit Reasons: Shoulder Pain Rv Repair Technician: Not Required per policy Accompanied by: Self / Same As Patient Allergies shellfish derived Allergy (Severe, Verified 02/20/24 11:26) Anaphylaxis Medication List - Last Reconciled 02/21/24 by Getachew Colunga MD albuterol sulfate 90 mcg/actuation (Ventolin HFA) 2 puffs inhalation Q4-6H PRN Breo Ellipta 200-25 mcg/dose (fluticasone furoate-vilanterol) 1 inh inhalation DAILY 30 days NS cholecalciferol (vitamin D3) 25 mcg PO DAILY clonazepam 0.5 mg PO BID clonidine HCl 0.2 - 0.4 mg PO BID diclofenac sodium 1% (Arthritis Pain (diclofenac)) 4 grams topical QID fluoxetine 40 mg PO DAILY ibuprofen 800 mg PO TID ipratropium-albuterol 0.5 mg-3 mg(2.5 mg base)/3 mL 3 mL inhalation QID PRN [left knee brace As directed] loratadine 10 mg PO DAILY PRN magnesium oxide 400 mg PO DAILY omeprazole 20 mg PO BID quetiapine 400 mg PO BID [Shower chair As directed] tadalafil (Cialis) 20 mg PO DAILY 90 days tadalafil (Cialis) 5 mg PO DAILY 90 days tamsulosin 0.4 mg PO BEDTIME 90 days umeclidinium 62.5 mcg/actuation (Incruse Ellipta) 1 inh inhalation DAILY Tobacco use date assessed: 08/03/23 Dental Screening Dental Screen Date: 09/15/23 HPI Shoulder Pain HPI Details bilat shoulder pain PFSH Medical History Sleep apnea Asthma GERD (gastroesophageal reflux disease) Tubular adenoma Abdominal pain Screening for prostate cancer Depression Fatigue Epidermal inclusion cyst Surgical History History of bunionectomy History of excision of epidermal inclusion cyst (~04/09/20) History of colonoscopy (~05/2011) History of esophagogastroduodenoscopy (EGD) (~05/2011) History of left knee surgery (~04/2016) History of hernia repair (~1990) History of removal of cyst (~04/2019) Family History Father History of hypertension History of heart disease History of diabetes mellitus Mother History of skin cancer Sister History of arthritis History of colon cancer History of breast cancer Mental health disorder Son No problems noted. Daughter No problems noted. Social History Housing: Apartment Alcohol intake: never Patient Tobacco Use Status: Former Tobacco user Tobacco use type: Cigarette e-Cigarette/Vaping Use: Never Used Second Hand Smoke Exposure: No service: No Current occupational status: unemployed and disabled Current occupation: left hand Cognitive needs: Yes Hearing needs: No Vision needs: No Questionnaire Thrive Questionnaire Date Thrive assessed: 08/03/23 GUS-7 AMB Questionnaire GUS-7 Date GUS - 7 assessed: 08/03/23 Source: Developed by Drs. Red uDggan, Ashley Jhaveri, Humberto Barreto and colleagues, with an educational waylon from [employer] Review of Systems Const Denies chills, Denies headache(s) and Denies weight loss ENT Denies headache(s) Card Denies chest pain, Denies syncope, Denies irregular heart rhythm and Denies dyspnea Resp Denies chest congestion, Denies cough and Denies dyspnea GI Denies abdominal pain, Denies change in stool character, Denies nausea and Denies vomiting Musc Denies deformity and Denies joint swelling Neuro Denies syncope and Denies headache(s) Physical exam (Primary Care) Vital Signs: Last Vital Signs Pulse 67 02/20/24 11:25 BP 130/70 02/20/24 11:25 Pulse Ox 98 02/20/24 11:25 Oxygen Delivery Method Room Air 02/20/24 11:25 BMI result Body Mass Index 29.0 Tobacco/Smoking Status: Tobacco use Status Tobacco use date assessed 08/03/23 02/20/24 11:26 Patient Tobacco Use Status Former Tobacco user 02/20/24 11:26 Tobacco use type Cigarette 02/20/24 11:26 e-Cigarette/Vaping Use Never Used 02/20/24 11:26 Thrive Assessment: Date of Thrive Assessment Date Thrive assessed 08/03/23 02/20/24 11:26 Const General: cooperative, comfortable, no acute distress and alert Neck Neck: Yes no lymphadenopathy Thyroid: Thyroid normal Resp Effort & Inspection: normal respiratory effort Auscultation: clear to auscultation bilaterally Percussion: percussion normal Cardio Jugular venous distension: no JVD Palpation: normal PMI Rate: regular rate Rhythm: regular rhythm Heart sounds: S1 normal heart sound present and S2 normal heart sound present GI Inspection: Yes normal to inspection Palpation (GI): No hepatosplenomegaly present Skin General skin exam: no rashes or lesions noted Extrem General: Yes no clubbing, cyanosis or edema Assessment and Plan Assessment & Plan (1) Right shoulder pain: Code(s): M25.511 - Pain in right shoulder Plan: ortho f/u for OA Coding Level of Care Code Est Pt Level 3 (36768) Diagnoses Right shoulder pain M25.511
== END 2024-02-20 13:06 | disposition home or self-care (01) ==
PROVIDERS: PCP Internal Medicine; Visit Provider Internal Medicine
DX: M25.511 Pain in right shoulder (principal)
CPT/HCPCS: 99213

== ENCOUNTER 2024-03-22 16:09 | Outpatient (REF) | payer MEDICARE, MEDICAID, SELFPAY ==
--- NOTE | ~2024-03-22 | CT_ITS ---
EXAMINATION: CT CHEST WITHOUT CONTRAST CLINICAL INFORMATION: Localized enlarged lymph nodes COMPARISON: CT dated May 19, 2023 TECHNIQUE: Multidetector volumetric CT imaging of the chest was done. Axial MIP volume rendering provided. Sagittal and coronal reformatted images were obtained. This CT examination was performed using dose optimization techniques as appropriate, variously including the following: *Automated exposure control *Adjustment of mA and/or kV according to patient size (this includes techniques or standardized protocols for targeted exams where dose is matched to indication/reason for exam; i.e. extremities or head) *Use of iterative reconstruction technique DLP: 279 mGy-cm FINDINGS: Submitted for interpretation on 05/24/2024. LUNGS: Peribronchial vascular bundle and peribronchial septal nodular opacities, lung bases, right middle lobe. Bronchiectasis, lung bases. Minimal honeycombing, peripheral upper lobes bilaterally. MEDIASTINUM: Prominent lymph nodes, perihilar bilaterally. No gross pericardial effusion. Calcified plaque thoracic aortic arch.. CORONARY ARTERY CALCIFICATION: Calcified plaques in the coronary arteries. PLEURA: No pleural effusion. No pneumothorax. AXILLA: Nonspecific prominent lymph nodes, bilaterally. UPPER ABDOMEN: Multifocal exophytic hypodensities with fluid density in both kidneys. Prominent breast tissue, bilaterally. Prominent thyroid gland without gross dominant nodule. OSSEOUS STRUCTURES: Multilevel spondylosis without acute fracture or listhesis. No lytic or blastic lesions. CT/CT chest wo IV con IMPRESSION: Consider sarcoidosis in the correct clinical settings Scadding criteria type II. Other inflammatory versus infectious process should be included in the differential diagnosis. Cystic lesions, both kidneys. Prominent thyroid gland suggesting thyroid disorder. Fleischner guidelines were followed. Electronically signed by: Dennis Hernández MD 05/24/2024 07:45 AM EDT
== END 2024-03-22 16:10 | disposition home or self-care (01) ==
LOC: HO.CT 16:09
PROVIDERS: PCP Internal Medicine; Visit Provider Internal Medicine Pulmonary Disease
DX: R59.0 Localized enlarged lymph nodes (principal)
CPT/HCPCS: 71250

== ENCOUNTER → 2024-03-22 16:11 | Outpatient (BNV) | payer MEDICARE, MEDICAID, SELFPAY | PROVIDERS: PCP Internal Medicine; Visit Provider Radiology Diagnostic Radiology | DX: R59.0 Localized enlarged lymph nodes (principal) | CPT/HCPCS: 71250 ==

== ENCOUNTER 2024-05-23 07:00 | Outpatient (REF) | payer MEDICARE, MEDICAID, SELFPAY ==
[2024-05-23 07:13] LABS: MANUAL DIFF FLAG NO
[2024-05-23 08:04] LABS: Basophils Absolute Auto 0.1 X10*3/uL (0.0-0.2); Basophils Percent Auto 1.4 % (0-2); Eosinophils Absolute Auto 0.9 X10*3/uL (0.0-0.4); Eosinophils Percent Auto 11.4 % (0-4); Hematocrit 39.9 % (42.0-52.0); Hemoglobin 13.6 g/dl (14.0-18.0); Imm Gran Abs Auto 0.01 X10*3/uL (0.00-0.03); Imm Gran Pct Auto 0.1 % (0.0-0.4); Lymphocytes Absolute Auto 2.3 X10*3/uL (1.2-4.9); Lymphocytes Percent Auto 30.6 % (20-40); Mean Corpuscular HGB Conc 34.1 g/dl (31.0-36.0); Mean Corpuscular Hemoglobin 29.6 pg (27.0-33.0); Mean Corpuscular Volume 86.9 fL (80.0-98.0); Mean Platelet Volume 10.7 fL (9.4-12.4); Monocytes Absolute Auto 0.7 X10*3/uL (0.1-1.2); Monocytes Percent Auto 8.8 % (2-11); Neutrophils Absolute Auto 3.6 x10*3/uL (2.0-8.3); Neutrophils Percent Auto 47.7 % (45-73); Platelet Count 273 X10*3/uL (160-400); Red Blood Count 4.59 X10*6/uL (4.60-5.80); Red Cell Distribution Width 11.3 % (11.0-16.0); White Blood Count 7.6 X10*3/uL (4.8-10.8)
[2024-05-23 08:46] LABS: Alanine Aminotransferase 16 U/L (0-40); Albumin Level 4.3 g/dL (3.5-5.0); Alkaline Phosphatase 64 U/L (39-117); Anion Gap 13 (12-20); Aspartate Amino Transferase 28 U/L (5-37); Bilirubin Total 0.6 mg/dL (0.0-1.0); Blood Urea Nitrogen 11 mg/dL (9-16); Calcium 9.7 mg/dL (8.4-10.2); Carbon Dioxide 24 mmol/L (22-29); Chloride 107 mmol/L (96-108); Cholesterol 178 mg/dL (<200); Estimated Glomerular Filt Rate > 60; Glucose Fasting 112 mg/dL (60-99); HDL Cholesterol 37 mg/dL (>40); LDL Cholesterol Calculated 118 mg/dL (<100); Potassium 3.9 mmol/L (3.3-5.1); Sodium 140 mmol/L (135-145); Total Protein 7.7 g/dL (6.5-8.0); Triglycerides 118 mg/dL (<150)
[2024-05-23 08:57] LABS: Prostate Specific Antigen 0.89 ng/mL (<0.05-4.0)
== END 2024-05-23 07:01 | disposition home or self-care (01) ==
LOC: HO.LAB 07:00
PROVIDERS: PCP Internal Medicine; Visit Provider Nurse Practitioner Family
DX: E78.5 Hyperlipidemia, unspecified (principal); N28.9 Disorder of kidney and ureter, unspecified; N40.0 Benign prostatic hyperplasia without lower urinary tract symptoms; R59.0 Localized enlarged lymph nodes; Z12.5 Encounter for screening for malignant neoplasm of prostate; D64.9 Anemia, unspecified
CPT/HCPCS: 36415; 80053; 80061; 84153; 85025

== ENCOUNTER 2024-07-23 10:20 | Outpatient (AMB) | payer MEDICARE, MEDICAID, SELFPAY ==
--- NOTE | 2024-07-23 10:20 | A.OFFVIS_ITS ---
Intake Visit Reasons: follow up/PSA Intake Note: Patient presents today for tele visit follow up non: erectile dysfunction and psa lab results PSA: 0.89 Urology Medications: tamsulosin,tadalafil Blood Thinner: none * patient requests refills on tadalafil Header Setup Operator Required: No Header Setup Operator Services: Header Setup Operator Present Header Setup Operator Name: MAYELINTONE CELINAFREDERICKSUMAN Allergies shellfish derived Allergy (Severe, Verified 07/23/24 10:42) Anaphylaxis Medication List - Last Reconciled 07/23/24 by MORGAN Guerrero- albuterol sulfate 90 mcg/actuation (Ventolin HFA) 2 puffs inhalation Q4-6H PRN Breo Ellipta 200-25 mcg/dose (fluticasone furoate-vilanterol) 1 inh inhalation DAILY 30 days NS cholecalciferol (vitamin D3) 25 mcg PO DAILY clonazepam 0.5 mg PO BID clonidine HCl 0.2 - 0.4 mg PO BID diclofenac sodium 1% (Arthritis Pain (diclofenac)) 4 grams topical QID fluoxetine 40 mg PO DAILY ibuprofen 800 mg PO TID ipratropium-albuterol 0.5 mg-3 mg(2.5 mg base)/3 mL 3 mL inhalation QID PRN [left knee brace As directed] loratadine 10 mg PO DAILY PRN magnesium oxide 400 mg PO DAILY omeprazole 20 mg PO BID quetiapine 400 mg PO BID [Shower chair As directed] tadalafil (Cialis) 20 mg PO DAILY 90 days tadalafil (Cialis) 5 mg PO DAILY 90 days tamsulosin 0.4 mg PO BEDTIME 90 days umeclidinium 62.5 mcg/actuation (Incruse Ellipta) 1 inh inhalation DAILY HPI Comments Details: Amado is a pleasant 63-year-old American-speaking patient of Dr. Colunga. He has a past medical history of sleep apnea, asthma, GERD, depression, and fatigue. He is being followed up on today via telehealth for his erectile dysfunction, low libido, and urinary urgency. In discussion with the patient today he reports to be doing and feeling well. He reports compliance with daily dosing of tadalafil as well as p.r.n. dosing prior to sexual activity and feels this has been helpful in obtaining and maintaining his erections. He also reports compliance with Flomax as prescribed. He currently denies any bothersome urinary issues or concerns. He denies urinary urgency, urinary frequency, incontinence, nocturia, hematuria, dysuria, foul smelling urine, changes to urinary stream, flank pain, fever, and or chills. Recent PSA results reviewed with the patient today as noted and trended below. Urological labs are as follows: Testosterone 12/13 401, free testosterone 52.9 PSAs: 03/14 0.6, 09/15 0.4, 05/16 0.9 Discussed at length importance of adequate sleep, healthy eating habits, daily exercise/brisk walking daily and maintaining healthy weight. He otherwise offers no other issues or concerns at this time. [facility] Medical History Sleep apnea Asthma GERD (gastroesophageal reflux disease) Tubular adenoma Abdominal pain Screening for prostate cancer Depression Fatigue Epidermal inclusion cyst Surgical History History of bunionectomy History of excision of epidermal inclusion cyst (~04/09/20) History of colonoscopy (~05/2011) History of esophagogastroduodenoscopy (EGD) (~05/2011) History of left knee surgery (~04/2016) History of hernia repair (~1990) History of removal of cyst (~04/2019) Family History Father History of hypertension History of heart disease History of diabetes mellitus Mother History of skin cancer Sister History of arthritis History of colon cancer History of breast cancer Mental health disorder Son No problems noted. Daughter No problems noted. Social History Housing: Apartment Alcohol intake: never Patient Tobacco Use Status: Former Tobacco user Tobacco use type: Cigarette e-Cigarette/Vaping Use: Never Used Second Hand Smoke Exposure: No service: No Current occupational status: unemployed and disabled Current occupation: left hand Cognitive needs: Yes Hearing needs: No Vision needs: No Review of Systems Const Reports as per HPI Eyes Reports no additional complaints ENT Reports as per HPI Card Reports no additional complaints Resp Reports as per HPI GI Reports as per HPI Reports as per HPI Musc Reports no additional complaints Neuro Reports as per HPI Psych Reports as per HPI Endo Reports no additional complaints Physical Exam Const General: cooperative Orientation/consciousness: patient oriented x3 Resp Effort & Inspection: normal respiratory effort and able to speak in complete sentences Neuro General: patient oriented x3 Psych Mental Status: mental status grossly normal Speech and movement: Clear speech present Affect: normal affect Attitude: cooperative Thought process: Normal thought process present Thought content: Normal thought content present Insight: Fair insight present (Psych) Judgement: Fair judgement present (Psych) Telehealth Telehealth Telehealth Platform: [employer] Location of provider rendering services: practice address Location of patient: address on file Patient Identification confirmed using: Name, : Yes Telehealth method: voice only Patient verbally consented to treatment: Yes Patient verbally consented to billing insurance company: Yes Patient informed of any privacy concerns related to visit: Yes Minutes spent on Phone/Video with Pt.: 15 Assessment & Plan Assessment & Plan (1) Erectile dysfunction: Code(s): N52.9 - Male erectile dysfunction, unspecified Category: Medical (2) Low libido: Code(s): R68.82 - Decreased libido Category: Medical (3) Nocturia: Code(s): R35.1 - Nocturia Category: Medical Plan Recent PSA results reviewed the patient today; as noted above. Continue urological medications as prescribed; refills provided. Patient currently denies any bothersome urinary issues or concerns. He reports be happy with current voiding parameters. Discussed and reinforced importance of compliance with sleep apnea for improvement in erections as well as overall health and well-being. Discussed and reinforced importance of adequate sleep, healthy eating habits, and daily activity for improvement erections as well as overall health and well- being. Follow-up in 6 months; or sooner with any issues, concerns, and or questions. Medications: Changed From tadalafil (Cialis) BIN [id number] [facility] FANNIE 20 mg PO DAILY 90 days 30 tabs 2RF To tadalafil (Cialis) BIN [id number] [facility] DR33 20 mg PO .PRN 60 tabs 3RF 90 days Refilled tadalafil (Cialis) [facility] DR33 [id number] 5 mg PO DAILY 90 tabs 3RF 90 days Patient Instructions: The patient had an opportunity to ask questions regarding the treatment plan. All questions were answered. Physical exam, labs, and imaging were discussed and reviewed in detail. As well as risks, benefits, and discussion of treatment choices. No major barriers to understanding were identified. The patient expressed understanding and agreement with the above treatment plan. The patient was made aware they should contact our office by phone for worsening of their current condition, the appearance of new symptoms, or with any questions or concerns. Compliance is encouraged with any medications and follow up testing that is ordered. It is a privilege to be allowed the opportunity to participate in? your urological care.? Again, if you have any questions or concerns If you have any questions or concerns please do not hesitate to contact me. The office is [phone]. This note is constructed using voice recognition software. While every effort has been made to ensure accuracy rn mobile errors may have been included. Yours sincerely, YARITZA Guerrero Coding Level of Care Code Tele Est Pt Level 3 (51148) Complex EM visit Add On G2211 Diagnoses Erectile dysfunction N52.9 Low libido R68.82 Nocturia R35.1
== END 2024-07-23 11:56 | disposition home or self-care (01) ==
LOC: HO.HUSH 10:20
PROVIDERS: PCP Internal Medicine; Visit Provider Nurse Practitioner Family
DX: N52.9 Male erectile dysfunction, unspecified (principal); R68.82 Decreased libido; R35.1 Nocturia
CPT/HCPCS: 99442

== ENCOUNTER → 2024-07-23 10:20 | Outpatient (BNVA) | payer MEDICARE, MEDICAID, SELFPAY | PROVIDERS: PCP Internal Medicine; Visit Provider Nurse Practitioner Family ==

== ENCOUNTER 2024-08-21 13:17 | Outpatient (AMB) | payer MEDICARE, MEDICAID, SELFPAY ==
--- NOTE | 2024-08-21 13:25 | MHC.PC.OV ---
Vital Signs 08/21/24 13:27 Height 5 ft 11 in Weight 209 lb 8 oz BMI 29.2 BP 126/66 Blood Pressure Location Lt brachial Position Sitting Pulse 77 Pulse Source Pulse Oximeter Temp 97.3 F Temp Source Skin Pulse Oximetry (%) 98 Oxygen Delivery Method Room Air Intake Visit Reasons: Shoulder and stomach pain Intake Note: Patient is here to follow up on left neck pain and stomach pain. Senior Technical Manager Required: No Child Welfare Social Worker: Not Required per policy Accompanied by: Self / Same As Patient Allergies shellfish derived Allergy (Severe, Verified 08/21/24 13:27) Anaphylaxis Medication List - Last Reconciled 08/22/24 by Getachew Colunga MD albuterol sulfate 90 mcg/actuation (Ventolin HFA) 2 puffs inhalation Q4-6H PRN Breo Ellipta 200-25 mcg/dose (fluticasone furoate-vilanterol) 1 inh inhalation DAILY 30 days NS cholecalciferol (vitamin D3) 25 mcg PO DAILY clonazepam 0.5 mg PO BID clonidine HCl 0.2 - 0.4 mg PO BID diclofenac sodium 1% (Arthritis Pain (diclofenac)) 4 grams topical QID fluoxetine 40 mg PO DAILY ibuprofen 800 mg PO TID ipratropium-albuterol 0.5 mg-3 mg(2.5 mg base)/3 mL 3 mL inhalation QID PRN [left knee brace As directed] loratadine 10 mg PO DAILY PRN magnesium oxide 400 mg PO DAILY omeprazole 20 mg PO BID quetiapine 400 mg PO BID [Shower chair As directed] tadalafil (Cialis) 20 mg PO .PRN 90 days tadalafil (Cialis) 5 mg PO DAILY 90 days tamsulosin 0.4 mg PO BEDTIME 90 days umeclidinium 62.5 mcg/actuation (Incruse Ellipta) 1 inh inhalation DAILY Tobacco use date assessed: 08/21/24 Dental Screening Dental Screen Date: 08/21/24 Did you have a dental visit in the last 12 months?: Yes Did you have a dental problem in the last 6 months where you did not have access to dental care?: No Was dental information given to patient?: Patient has dentist HPI Shoulder and stomach pain HPI Details left sided abd pain for a month PFS Medical History Sleep apnea Asthma GERD (gastroesophageal reflux disease) Tubular adenoma Abdominal pain Screening for prostate cancer Depression Fatigue Epidermal inclusion cyst Surgical History History of bunionectomy History of excision of epidermal inclusion cyst (~04/09/20) History of colonoscopy (~05/2011) History of esophagogastroduodenoscopy (EGD) (~05/2011) History of left knee surgery (~04/2016) History of hernia repair (~1990) History of removal of cyst (~04/2019) Family History Father History of hypertension History of heart disease History of diabetes mellitus Mother History of skin cancer Sister History of arthritis History of colon cancer History of breast cancer Mental health disorder Son No problems noted. Daughter No problems noted. Social History Housing: Apartment Alcohol intake: never Patient Tobacco Use Status: Former Tobacco user Tobacco use type: Cigarette e-Cigarette/Vaping Use: Never Used Second Hand Smoke Exposure: Yes service: No Current occupational status: unemployed and disabled Current occupation: left hand Cognitive needs: Yes Hearing needs: No Vision needs: No Questionnaire PHQ-9 Over the last 2 weeks, how often have you been bothered by any of the following problems? 1. Little interest or pleasure in doing things: not at all 2. Feeling down, depressed, or hopeless: not at all 3. Trouble falling or staying asleep, or sleeping too much: not at all 4. Feeling tired or having little energy: not at all 5. Poor appetite or overeating: not at all 6. Feeling bad about yourself - or that you are a failure or have let yourself or your family down: not at all 7. Trouble concentrating on things, such as reading the newspaper or watching television: not at all 8. Moving or speaking so slowly that other people could have noticed. Or the opposite - being so fidgety or restless that you have been moving around a lot more than usual: not at all 9. Thoughts that you would be better off or of hurting yourself in some way: not at all Total score: 0 Depression Screening Interpretation: Negative Depression Screening Done: Yes Source: Developed by Drs. Red Duggan, Humberto Waddell and colleagues, with an educational waylon from [employer]. Thrive Questionnaire Date Thrive assessed: 08/21/24 I am a: Patient What is your living situation today?: I have a steady place to live Within the past 12 months, did the food you bought not last and you didn't have the money to get more?: Never true Within the past 12 months, did you worry whether your food would run out before you got money to buy more?: Never true Do you have trouble paying for medicines?: No Do you have trouble getting transportation to medical appointments?: No Do you have trouble paying your heating and electricity bill?: No Do you have trouble taking care of your child, family member or friend?: No Do you have trouble with day-to-day activities such as bathing, preparing meals, shopping, managing finances, etc.?: No Are you currently unemployed and looking for a job?: No Are you interested in more education?: No Please select the resources that you would like help with: None Currently or been in a relationship where the following occur: No concerns reported THRIVE Score: 0 AUDIT C Alcohol Use Questionnaire (AUDIT-C) 1. How often do you have a drink containing alcohol?: Never Total Score: 0 GUS-7 AMB Questionnaire GUS-7 Date GUS - 7 assessed: 08/21/24 Feeling nervous, anxious, or on edge: 0 = Not at all Not being able to stop or control worryin = Not at all Worrying too much about different things: 0 = Not at all Trouble relaxin = Not at all Being so restless that it is hard to sit still: 0 = Not at all Becoming easily annoyed or irritable: 0 = Not at all Feeling afraid as if something awful might happen: 0 = Not at all Total GUS-7 score (0-4 normal; 5-9 mild; 10-14 moderate; 15-21 severe): 0 Source: Developed by Ashley West Kurt Kroenke and colleagues, with an educational waylon from [employer]. Review of Systems Const Denies chills, Denies headache(s) and Denies weight loss ENT Denies headache(s) Card Denies chest pain, Denies syncope, Denies irregular heart rhythm and Denies dyspnea Resp Denies chest congestion, Denies cough and Denies dyspnea GI Denies change in stool character, Denies nausea and Denies vomiting Musc Denies deformity and Denies joint swelling Neuro Denies syncope and Denies headache(s) Physical exam (Primary Care) Vital Signs: Last Vital Signs Temp 97.3 F 08/21/24 13:27 Pulse 77 08/21/24 13:27 BP 126/66 08/21/24 13:27 Pulse Ox 98 08/21/24 13:27 Oxygen Delivery Method Room Air 08/21/24 13:27 BMI result Body Mass Index 29.2 Tobacco/Smoking Status: Tobacco use Status Tobacco use date assessed 08/21/24 08/21/24 13:32 Patient Tobacco Use Status Former Tobacco user 08/21/24 13:32 Tobacco use type Cigarette 08/21/24 13:32 e-Cigarette/Vaping Use Never Used 08/21/24 13:32 PHQ-9: PHQ-9 Score PHQ-9: Total score 0 08/21/24 13:32 Depression Screening Interpretation: Negative Thrive Assessment: Date of Thrive Assessment Date Thrive assessed 08/21/24 08/21/24 13:32 Currently or been in a relationship where the following occur: No concerns reported Const General: cooperative, comfortable, no acute distress and alert Neck Neck: Yes no lymphadenopathy Thyroid: Thyroid normal Resp Effort & Inspection: normal respiratory effort Auscultation: clear to auscultation bilaterally Percussion: percussion normal Cardio Jugular venous distension: no JVD Palpation: normal PMI Rate: regular rate Rhythm: regular rhythm Heart sounds: S1 normal heart sound present and S2 normal heart sound present GI Inspection: Yes normal to inspection Palpation (GI): No hepatosplenomegaly present Skin General skin exam: no rashes or lesions noted Extrem General: Yes no clubbing, cyanosis or edema Coding Level of Care Code Est Pt Level 3 (43603) Diagnoses Abdominal pain R10.9 Assessment & Plan Assessment & Plan (1) Abdominal pain: Code(s): R10.9 - Unspecified abdominal pain Plan: US ordered Orders: Orders US abdomen complete 08/21/24 R10.9 - Unspecified abdominal pain
[2024-08-21 13:27] VITALS: BP 126/66; PULSE 77; TEMP 36.3; O2SAT 98; BMI 29.2
== END 2024-08-21 13:39 | disposition home or self-care (01) ==
PROVIDERS: PCP Internal Medicine; Visit Provider Internal Medicine
DX: R10.9 Unspecified abdominal pain (principal)

== ENCOUNTER 2024-08-21 13:17 | Outpatient (REF) | payer MEDICARE, MEDICAID, SELFPAY ==
--- NOTE | ~2024-08-21 | XR_ITS ---
CLINICAL HISTORY: M54.2 - Cervicalgia 4 views cervical spine Comparison: None Findings: Normal alignment. No acute fractures or dislocation. No significant degenerative change. Prevertebral soft tissues within normal limits. IMPRESSION: No acute findings. This document has been electronically signed by: Jordi Julian MD on 08/22/2024 14:56:51
--- OUTSIDE RECORDS SUMMARY | 2024-08-21 16:13 | XMS_ITS | Clinical Summary ---
Author Organization [employer] [facility] Address [address] [place] [address] Care Team Providers Care Water Analyst Name Role Phone Unavailable Primary Care Provider Unavailabl e Allergies No known active allergies Medications No known medications Active Problems Problem Noted Date Diagnosed Date Ill-fitting dentures 08/02/2023 Encounters Date Type Department Care Team Description 07/31/2024 Telephone [facility] [address] [place] [address] Kosta Marley DDS from Last 3 Months Social History Tobacco Use Types Packs/Day Years Used Date Smoking Tobacco: Never Passive Smoke Exposure: Never Smokeless Tobacco: Never Tobacco Cessation:Counseling Given: No Alcohol Use Standard Drinks/Week Comments Defer 0 (1 standard drink = 0.6 oz pur e alcohol) Sex and Gender Information Value Date Recorded Sex Assigned at Male 05/23/2022 10:20 AM EDT Legal Sex Male 10:20 AM EDT Gender Identity Male 05/23/2022 10:20 AM EDT Sexual Orientation Straight 05/23/2022 10 :20 AM EDT Plan of Treatment Health Maintenance Due Date Last Done Comments CT Colonography 1961 Colonoscopy 1961 Colorectal Cancer Screening 1961 Depression Screening 1961 FIT DNA/Cologuard 1961 FIT 1961 FOBT 1961 HIV Screening 1961 Lipid Panel 1961 SDOH Screening 1961 Sigmoidoscopy 1961 Alcohol/Substance Use Screening 1973 Hepatitis C Screening 09/30/1979 Dental X-Ray: Bitewings 12/28/2015 12/27/19 15, 10/01/2014, 10/30/2013, Additional history exists Dental X-Ray: Full Mouth 10/02/2017 015, 10/30/2013, 10/30/2013, Additional history exists Dental Oral Exam 03/04/2020 09/03/2019, 03/2019, 12/01/2017, Additional history exists Dental Prophylaxis 03/04/2020 09/03/2019, 0 03/01/2019, 06/07/2018, Additional history exists COVID-19 Vaccine ( season) 2024 05/25/2022, 06/29/2021, 11/03/2020, Additional history exists Influenza Vaccine (#1) 2024 3, 05/25/2022, 05/19/2021, Additional history exists Tobacco Screening 08/02/2024 08/02/2023 DTaP/Tdap/Td Vaccines (2 - Td or Tdap) 12/10/2028 12/10/2018 RSV Patients and Patients Aged 60 years or older (1 - 1-dose 75+ series) 2036 Zoster Vaccines Completed 06/21/2023, 04/17/2023 HIB Vaccines Aged Out No longer eligi ble based on patient's age to complete this topic HPV Vaccines Aged Out No longer eligi ble based on patient's age to complete this topic Hepatitis A Vaccines Aged Out No long er eligible based on patient's age to complete this topic Hepatitis B Vaccines Aged Out No long er eligible based on patient's age to complete this topic IPV Vaccines Aged Out No longer eligi ble based on patient's age to complete this topic Meningococcal Vaccine Aged Out No navarro carisa eligible based on patient's age to complete this topic Pneumococcal Vaccine: Pediatrics (0 to 5 Years) and At-Risk Patients (6 to 49) Years) Aged Out No longer eligible based on patient's age to complete this topic RSV under 20 months Aged Out No longe r eligible based on patient's age to complete this topic Rotavirus Vaccines Aged Out No longer eligible based on patient's age to complete this topic Procedures Procedure Name Priority Date/Time Associated Diagnosis Comments PROPHYLAXIS - ADULT Routine 09/03/2019 1 2:00 AM EST PERIODIC ORAL EVALUATION - ESTABLISHED PATIENT Routine 09/03/2019 12:00 AM EST BITEWINGS - 2 RADIOGRAPHIC IMAGES Routine 12/26/2014 12:00 AM EDT DIAGNOSTIC - DIAGNOSTIC IMAGING - INTRAORAL - COMPREHENSIVE SERIES OF RADIOGRAPHIC IMAGES Routine 10/01/2014 12:00 AM EDT from Last 3 Months or Most Recently Relevant to Health Maintenance Insurance [facility]AL-[facility] MEDICAID STAND ADULT [address] [place] [address], [place] [phone]
--- OUTSIDE RECORDS SUMMARY | 2024-08-21 16:13 | XMS_ITS | Encounter Summary ---
Author Organization [employer] [facility] Address [address] [place] [address] [address] [place] [address] Care Team Providers Care Cook Mess Name Role Phone Unavailable Primary Care Provider Unavailabl e Encounter Details Date Type Department Care Team (Latest Contact Info) Description 09/03/[address] [facility] CONVERSIONS Dental, Provider, DDS Social History Tobacco Use Types Packs/Day Years Used Date Smoking Tobacco: Never Assessed Sex and Gender Information Value Date Recorded Sex Assigned at Male 05/23/2022 10:20 AM EDT Legal Sex Male 10:20 AM EDT Gender Identity Male 05/23/2022 10:20 AM EDT Sexual Orientation Straight 05/23/2022 10 :20 AM EDT documented as of this encounter Plan of Treatment Not on file documented as of this encounter Visit Diagnoses Not on filedocumented in this encounter
--- OUTSIDE RECORDS SUMMARY | 2024-08-21 16:13 | XMS_ITS | Encounter Summary ---
Author Organization [employer] [facility] Address [address] [place] [address] Care Team Providers Care Accounting Reconciliation Clerk Name Role Phone Unavailable Primary Care Provider Unavailabl e Encounter Details Date Type Department Care Team (Late st Contact Info) Description 07/31/2024 Telephone [facility]ULT D[facility]AL [address] [place], [place] [phone] Kosta Marley DDS [address] [place], [place] [phone] Social History Tobacco Use Types Packs/Day Years Used Date Smoking Tobacco: Never Passive Smoke Exposure: Never Smokeless Tobacco: Never Alcohol Use Standard Drinks/Week Comments Defer 0 (1 standard drink = 0.6 oz pur e alcohol) Sex and Gender Information Value Date Recorded Sex Assigned at Male 05/23/2022 10:20 AM EDT Legal Sex Male 10:20 AM EDT Gender Identity Male 05/23/2022 10:20 AM EDT Sexual Orientation Straight 05/23/2022 10 :20 AM EDT documented as of this encounter Miscellaneous Notes * Telephone Encounter - Alejandrina Marion - 07/31/2024 3:38 PM EST Talked to patient to schedule an appointment but he said that he is in [place] at this time and doesn't now he he is coming back. He also said if anything he will call us to schedule this appointment. documented in this encounter Plan of Treatment Not on file documented as of this encounter Visit Diagnoses Not on filedocumented in this encounter
== END 2024-08-21 13:18 | disposition home or self-care (01) ==
LOC: HO.XRAY 13:17
PROVIDERS: PCP Internal Medicine; Visit Provider Internal Medicine
DX: R10.9 Unspecified abdominal pain (principal); M54.2 Cervicalgia
CPT/HCPCS: 72040; 96127; 99212

== ENCOUNTER → 2024-08-21 13:57 | Outpatient (BNV) | payer MEDICARE, MEDICAID, SELFPAY | PROVIDERS: PCP Internal Medicine; Visit Provider Radiology Diagnostic Radiology | DX: M54.2 Cervicalgia (principal) | CPT/HCPCS: 72040 ==

== ENCOUNTER 2024-09-19 08:02 | Outpatient (REF) | payer MEDICARE, MEDICAID, SELFPAY ==
--- OUTSIDE RECORDS SUMMARY | 2024-09-19 09:03 | XMS_ITS | Encounter Summary ---
Author Organization [employer] [facility] Address [address] [place] [address] [address] [place] [address] Care Team Providers Care Account Resolution Expert Name Role Phone Unavailable Primary Care Provider Unavailabl e Encounter Details Date Type Department Care Team (Latest Contact Info) Description 09/03/2019 Abstract [facility] CONVERSIONS Dental, Provider, DDS Social History Tobacco [...]
--- OUTSIDE RECORDS SUMMARY | 2024-09-19 09:03 | XMS_ITS | Clinical Summary ---
Author Organization [employer] [facility] Address [address] [place] [address] Care Team Providers Care Summer Clerk Name Role Phone Unavailable Primary Care Provider Unavailabl e Allergies No known active allergies Medications No known medications Active Problems Problem Noted Date Diagnosed Date Ill-fitting dentures 08/02/2023 Encounters Date Type Department Care Team Description 07/31/2024 Telephone [facility] ADULT DENTAL [address] [place] [address] Kosta Marley DDS from Last 3 Months [...] Use Screening 1972 Hepatitis C Screening 09/30/1979 Pneumococcal Vaccine: 50+ Years (1 of 1 - PCV) 09/30/2011 Dental X-Ray: Bitewings 12/28/2015 12/27/19 15, 10/01/2014, 10/30/2013, Additional history exists Dental X-Ray: Full Mouth 10/02/2017 015, 10/30/2013, 10/30/2013, Additional history exists Dental Oral Exam 03/04/2020 09/03/2019, 03/2019, 12/01/2017, Additional history exists Dental Prophylaxis 03/04/2020 09/03/2019, 0 03/01/2019, 06/07/2018, Additional history exists COVID-19 Vaccine ( season) 2024 05/25/2022, 06/29/2021, 11/03/2020, Additional history exists Influenza Vaccine (#1) 2024 , 05/25/2022, 05/19/2021, Additional history exists Tobacco Screening [...] RADIOGRAPHIC IMAGES Routine 12/26/2014 12:00 AM EDT INTRAORAL - COMPLETE SERIES OF RADIOGRAPHIC IMAGES Routine 10/01/2014 12:00 AM EDT from Last 3 Months or Most Recently Relevant to Health Maintenance Insurance [facility] MEDICAID STAND ADULT Member Subscriber Plan / Payer (Ef fective 2023-Present) Name:Amado Stover Relation to Subscriber:Self Name:AndreeLico de leonsus Payer ID:Not on file Group ID:Not on file Type:Not on file Address: [place] [phone]
[2024-09-19 12:53] LABS: Influenza A PCR NEGATIVE (Negative); Influenza B PCR NEGATIVE (Negative); Resp Syncy Virus RNA Qual PCR NEGATIVE (Negative); SARS COV2 PCR INHOUSE NEGATIVE (Negative)
== END 2024-09-19 08:03 | disposition home or self-care (01) ==
LOC: HO.LAB 08:02
PROVIDERS: PCP Internal Medicine; Visit Provider Physician Assistant
DX: J06.9 Acute upper respiratory infection, unspecified (principal); R09.89 Other specified symptoms and signs involving the circulatory and respiratory systems
CPT/HCPCS: 0241U; 99212

== ENCOUNTER 2024-09-19 08:02 | Outpatient (AMB) | payer MEDICARE, MEDICAID, SELFPAY ==
--- NOTE | 2024-09-19 08:12 | AM.OFFWIN_ITS ---
Intake Vital Signs 09/19/24 08:13 Height 5 ft 11 in Weight 211 lb BMI 29.4 BP 120/68 Blood Pressure Location Lt brachial Position Sitting Pulse 72 Pulse Source Pulse Oximeter Temp 98.8 F Temp Source Oral Pulse Oximetry (%) 98 Oxygen Delivery Method Room Air Intake Visit Reasons: EP sore throat Intake Note: Patient here for sore throat that has been present for about 2-3 weeks. Patient Tobacco Use Status: Former Tobacco user Allergies shellfish derived Allergy (Severe, Verified 09/19/24 08:23) Anaphylaxis Do you need a note to return to daycare/school/sports/work: No HPI HPI Comments History of Present Illness Details History - The patient is a 63-year-old male pres enting with sore throat and cough. - Symptoms have been ongoing for two wee ks. - Patient denies fever, swollen lymph no piper, shortness of breath, or ear and sinus pain. - Previous COVID-19 test was negative. - No known exposure to strep throat. Physical Exam General: Cooperative, healthy appearing, comfortable and no acute distress Orientation/consciousness: Patient oriented x3 Limitations: No limitations Head: Normal to inspection Ears: Hearing grossly normal bilaterally, external ears normal and TM's normal bilaterally Nose: Normal external nose present, Normal nares present and No nasal discharge present Face and sinus: Normal facial exam and Yes sinuses nontender Mouth: Normal oral and palatal mucosa present and moist mucous membranes Throat: Yes tonsils normal, Yes uvula midline. Posterior oropharynx erythema, No exudates Eyes: Appearance normal, both eyes and all related structures Neck: Normal visual inspection Respiratory: Normal respiratory effort, able to speak in complete sentences, Actively coughing, no respiratory distress, not tachypneic, no tripod positioning and no use of accessory muscles Skin: No rashes or lesions noted Neuro: Patient oriented x3 Extremities: Normal to inspection and Yes no clubbing, cyanosis or edema PFSH Medical History Sleep apnea Asthma GERD (gastroesophageal reflux disease) Tubular adenoma Abdominal pain Screening for prostate cancer Depression Fatigue Epidermal inclusion cyst Surgical History History of bunionectomy History of excision of epidermal inclusion cyst (~04/09/20) History of colonoscopy (~05/2011) History of esophagogastroduodenoscopy (EGD) (~05/2011) History of left knee surgery (~04/2016) History of hernia repair (~1990) History of removal of cyst (~04/2019) Family History Father History of hypertension History of heart disease History of diabetes mellitus Mother History of skin cancer Sister History of arthritis History of colon cancer History of breast cancer Mental health disorder Son No problems noted. Daughter No problems noted. Social History Housing: Apartment Alcohol intake: never Patient Tobacco Use Status: Former Tobacco user Tobacco use type: Cigarette e-Cigarette/Vaping Use: Never Used Second Hand Smoke Exposure: Yes service: No Current occupational status: unemployed and disabled Current occupation: left hand Cognitive needs: Yes Hearing needs: No Vision needs: No Review of Systems Const All systems reviewed & are unremarkable except as noted in HPI and below Physical Exam Vital Signs: Last Vital Signs Temp 98.8 F 09/19/24 08:13 Pulse 72 09/19/24 08:13 BP 120/68 09/19/24 08:13 Pulse Ox 98 09/19/24 08:13 Oxygen Delivery Method Room Air 09/19/24 08:13 BMI result Body Mass Index 29.4 Assessment & Plan Assessment & Plan (1) URI, acute: Code(s): J06.9 - Acute upper respiratory infection, unspecified Plan: Considering the patient's symptoms of sore throat and cough for two weeks, swabs for COVID-19, Influenza, and RSV were performed. Cough suppressant medication was prescribed to manage symptoms. If viral tests prove negative, antibiotic treatment may be initiated (Zpak for atypical pna). The patient is advised to stay hydrated and use ibuprofen for relief. Patient was informed and verbally consented to the use of an ambient scribe for clinic note documentation during this visit Orders: Orders SARS-CoV2/FLU/RSV Today R09.89 - Other specified symptoms and signs involving the circulatory and respiratory systems Medications: New benzonatate 200 mg PO BEDTIME PRN 10 caps 0RF cough Coding Level of Care Code Est Pt Level 3 (53414) Diagnoses URI, acute J06.9
[2024-09-19 08:13] VITALS: BP 120/68; PULSE 72; TEMP 37.1; O2SAT 98; BMI 29.4
== END 2024-09-19 08:37 | disposition home or self-care (01) ==
PROVIDERS: PCP Internal Medicine; Visit Provider Physician Assistant
DX: J06.9 Acute upper respiratory infection, unspecified (principal)

== ENCOUNTER 2024-09-26 08:41 | Outpatient (AMB) | payer MEDICARE, MEDICAID, SELFPAY ==
--- NOTE | 2024-09-26 08:42 | A.OFFPC_ITS ---
Vital Signs 09/26/24 08:44 Height 5 ft 11 in Weight 205 lb BMI 28.6 BP 122/70 Respiration 16 Pulse 97 Pulse Oximetry (%) 62 L Oxygen Delivery Method Room Air Intake Visit Reasons: annual physical Food And Beverage Analyst Required: No Accompanied by: Self / Same As Patient Allergies shellfish derived Allergy (Severe, Verified 09/26/24 08:50) Anaphylaxis Medication List - Last Reconciled 09/26/24 by Getachew Colunga MD albuterol sulfate 90 mcg/actuation (Ventolin HFA) 2 puffs inhalation Q4-6H PRN benzonatate 200 mg PO BEDTIME PRN Breo Ellipta 200-25 mcg/dose (fluticasone furoate-vilanterol) 1 inh inhalation DAILY 30 days NS cholecalciferol (vitamin D3) 25 mcg PO DAILY clonazepam 0.5 mg PO BID clonidine HCl 0.2 - 0.4 mg PO BID diclofenac sodium 1% (Arthritis Pain (diclofenac)) 4 grams topical QID doxycycline hyclate 100 mg PO BID fluoxetine 40 mg PO DAILY ibuprofen 800 mg PO TID ipratropium-albuterol 0.5 mg-3 mg(2.5 mg base)/3 mL 3 mL inhalation QID PRN [left knee brace As directed] loratadine 10 mg PO DAILY PRN magnesium oxide 400 mg PO DAILY naproxen (Naprosyn) 500 mg PO BID PRN omeprazole 20 mg PO BID quetiapine 400 mg PO BID [Shower chair As directed] tadalafil (Cialis) 20 mg PO .PRN 90 days tadalafil (Cialis) 5 mg PO DAILY 90 days tamsulosin 0.4 mg PO BEDTIME 90 days umeclidinium 62.5 mcg/actuation (Incruse Ellipta) 1 inh inhalation DAILY Tobacco use date assessed: 08/21/24 Dental Screening Dental Screen Date: 08/21/24 HPI annual physical HPI Details asthma and OA knees PFSH Medical History Sleep apnea Asthma GERD (gastroesophageal reflux disease) Tubular adenoma Abdominal pain Screening for prostate cancer Depression Fatigue Epidermal inclusion cyst Surgical History History of bunionectomy History of excision of epidermal inclusion cyst (~04/09/20) History of colonoscopy (~05/2011) History of esophagogastroduodenoscopy (EGD) (~05/2011) History of left knee surgery (~04/2016) History of hernia repair (~1990) History of removal of cyst (~04/2019) Family History Father History of hypertension History of heart disease History of diabetes mellitus Mother History of skin cancer Sister History of arthritis History of colon cancer History of breast cancer Mental health disorder Son No problems noted. Daughter No problems noted. Social History Housing: Apartment Alcohol intake: never Patient Tobacco Use Status: Former Tobacco user Tobacco use type: Cigarette e-Cigarette/Vaping Use: Never Used Second Hand Smoke Exposure: Yes service: No Current occupational status: unemployed and disabled Current occupation: left hand Cognitive needs: Yes Hearing needs: No Vision needs: No Questionnaire PHQ-9 Over the last 2 weeks, how often have you been bothered by any of the following problems? 1. Little interest or pleasure in doing things: not at all 2. Feeling down, depressed, or hopeless: not at all 3. Trouble falling or staying asleep, or sleeping too much: not at all 4. Feeling tired or having little energy: not at all 5. Poor appetite or overeating: not at all 6. Feeling bad about yourself - or that you are a failure or have let yourself or your family down: not at all 7. Trouble concentrating on things, such as reading the newspaper or watching television: not at all 8. Moving or speaking so slowly that other people could have noticed. Or the opposite - being so fidgety or restless that you have been moving around a lot more than usual: not at all 9. Thoughts that you would be better off or of hurting yourself in some way: not at all Total score: 0 Depression Screening Interpretation: Negative Depression Screening Done: Yes Source: Developed by Drs. Red Duggan, Ashley Jhaveri, Humberto Barreto and colleagues, with an educational waylon from [employer]. Thrive Questionnaire Date Thrive assessed: 08/21/24 I am a: Patient What is your living situation today?: I have a steady place to live Within the past 12 months, did the food you bought not last and you didn't have the money to get more?: I choose not to answer this question Within the past 12 months, did you worry whether your food would run out before you got money to buy more?: I choose not to answer this question Do you have trouble paying for medicines?: I choose not to answer this question Do you have trouble getting transportation to medical appointments?: I choose not to answer this question Do you have trouble paying your heating and electricity bill?: I choose not to answer this question Do you have trouble taking care of your child, family member or friend?: I choose not to answer this question Do you have trouble with day-to-day activities such as bathing, preparing meals, shopping, managing finances, etc.?: I choose not to answer this question Are you currently unemployed and looking for a job?: I choose not to answer this question Are you interested in more education?: I choose not to answer this question Please select the resources that you would like help with: None Currently or been in a relationship where the following occur: I choose not to answer THRIVE Score: 0 AUDIT C Alcohol Use Questionnaire (AUDIT-C) 1. How often do you have a drink containing alcohol?: Never Total Score: 0 GUS-7 AMB Questionnaire GUS-7 Date GUS - 7 assessed: 08/21/24 Feeling nervous, anxious, or on edge: 0 = Not at all Not being able to stop or control worryin = Not at all Worrying too much about different things: 0 = Not at all Trouble relaxin = Not at all Being so restless that it is hard to sit still: 0 = Not at all Becoming easily annoyed or irritable: 0 = Not at all Feeling afraid as if something awful might happen: 0 = Not at all Total GUS-7 score (0-4 normal; 5-9 mild; 10-14 moderate; 15-21 severe): 0 Source: Developed by Drs. Red Duggan, Ashley Jhaveri, Humberto Barreto and colleagues, with an educational waylon from [employer]. Review of Systems Const Denies chills, Denies fatigue, Denies headache(s) and Denies weight loss Eyes Denies change in vision, Denies diplopia and Denies eye pain ENT Denies vertigo, Denies dizziness, Denies headache(s) and Denies nasal discharge Card Denies chest pain, Denies rapid heart rate and Denies dyspnea on exertion Resp Denies chest congestion, Denies cough, Denies pain with cough and Denies dyspnea on exertion GI Denies abdominal pain, Denies hematochezia and Denies change in bowel habits Musc Denies myalgias, Denies arthralgias and Denies joint swelling Skin/Breast Denies lesions and Denies unusual bruising Neuro Denies vertigo, Denies dizziness, Denies headache(s) and Denies focal weakness Endo Denies fatigue Physical exam (Primary Care) Vital Signs: Last Vital Signs Pulse 97 09/26/24 08:44 Resp 16 09/26/24 08:44 BP 122/70 09/26/24 08:44 Pulse Ox 62 L 09/26/24 08:44 Oxygen Delivery Method Room Air 09/26/24 08:44 BMI result Body Mass Index 28.6 Tobacco/Smoking Status: Tobacco use Status Tobacco use date assessed 08/21/24 09/26/24 08:53 Patient Tobacco Use Status Former Tobacco user 09/26/24 08:53 Tobacco use type Cigarette 09/26/24 08:53 e-Cigarette/Vaping Use Never Used 09/26/24 08:53 PHQ-9: PHQ-9 Score PHQ-9: Total score 0 09/26/24 08:53 Depression Screening Interpretation: Negative Thrive Assessment: Date of Thrive Assessment Date Thrive assessed 08/21/24 09/26/24 08:53 Currently or been in a relationship where the following occur: I choose not to answer Const General: cooperative, healthy appearing and no acute distress Orientation/consciousness: oriented to person, oriented to place and oriented to time [facility] Head: Yes normal to inspection, Yes normocephalic and Yes atraumatic Mouth: Normal oral and palatal mucosa present and tongue normal Throat: Yes posterior oropharynx normal and Yes uvula midline Eyes General: appearance normal, both eyes and all related structures Neck Neck: Yes normal visual inspection, Yes full ROM and Yes no lymphadenopathy Thyroid: Thyroid normal Carotids: normal carotid upstroke Chest Chest palpation & inspection: normal inspection of the chest Resp Effort & Inspection: normal respiratory effort and able to speak in complete sentences Auscultation: clear to auscultation bilaterally Cardio Jugular venous distension: no JVD Palpation: normal PMI Rate: regular rate Rhythm: regular rhythm Heart sounds: S1 normal heart sound present and S2 normal heart sound present GI Inspection: Yes normal to inspection Palpation (GI): Soft to palpation and No hepatosplenomegaly present Auscultation: normal bowel sounds General: Yes no CVA tenderness Back/Spine/Pelvis Back: no CVA tenderness Skin General skin exam: no rashes or lesions noted Neuro General: oriented to person, oriented to place and oriented to time Extrem General: Yes normal to inspection and Yes full ROM Coding Level of Care Code Est Pt Prev Care 40-64y(40787) Diagnoses Physical exam Z00.00 Patellofemoral disorder of both knees M22.2X1; M22.2X2 Asthma J45.909 Assessment & Plan Assessment & Plan (1) Physical exam: Code(s): Z00.00 - Encounter for general adult medical examination without abnormal findings Category: Medical Plan: stable (2) Patellofemoral disorder of both knees: Code(s): M22.2X1 - Patellofemoral disorders, right knee; M22.2X2 - Patellofemoral disorders, left knee Category: Medical Plan: ortho ref (3) Asthma: Code(s): J45.909 - Unspecified asthma, uncomplicated Category: Medical Plan: stable; same rx Orders: Referrals Orthopedics Referral M17.10 - Unilateral primary osteoarthritis, unspecified knee Medications: Refilled doxycycline hyclate 100 mg PO BID 14 tabs 0RF
[2024-09-26 08:44] VITALS: BP 122/70; PULSE 97; RESP 16; O2SAT 62; BMI 28.6
--- OUTSIDE RECORDS SUMMARY | 2024-09-26 09:13 | XMS_ITS | Encounter Summary ---
Author Organization [employer] [facility] Address [address] [place] [address] [address] [place] [address] Care Team Providers Care Computer Art Instructor Name Role Phone Unavailable Primary Care Provider Unavailabl e Encounter Details Date Type Department Care Team (Latest Contact Info) Description 09/03/2019 Abstract [facility] CONVERSIONS Dental, Provider, DDS Social History Tobacco [...]
--- OUTSIDE RECORDS SUMMARY | 2024-09-26 09:13 | XMS_ITS | Clinical Summary ---
Author Organization [employer] [facility] Address [address] [facility] [address] [place] [address] Care Team Providers Care Canteen Operator Name Role Phone Unavailable Primary Care Provider Unavailabl e Allergies No known active allergies Medications No known medications Active Problems Problem Noted Date Diagnosed Date Ill-fitting dentures 08/02/2023 Encounters Date Type Department Care Team Description 07/31/2024 Telephone [facility] ADULT DENTAL [address] [place] [address] Kosta Marley DDS from Last 3 Months [...] Most Recently Relevant to Health Maintenance Insurance [facility] MEDICAID STAND ADULT Member Subscriber Plan / Payer (Ef fective 2023-Present) Name:Amado Stover Relation to Subscriber:Self Name:AndreeLico de leonsus Payer ID:Not on file Group ID:Not on file Type:Not on file Address: [place] [phone]
== END 2024-09-26 09:13 | disposition home or self-care (01) ==
PROVIDERS: PCP Internal Medicine; Visit Provider Internal Medicine
DX: Z00.00 Encounter for general adult medical examination without abnormal findings (principal); M22.2X1 Patellofemoral disorders, right knee; M22.2X2 Patellofemoral disorders, left knee; J45.909 Unspecified asthma, uncomplicated

== ENCOUNTER → 2024-09-26 08:41 | Outpatient (BNVA) | payer MEDICARE, MEDICAID, SELFPAY | PROVIDERS: PCP Internal Medicine; Visit Provider Internal Medicine | DX: Z00.00 Encounter for general adult medical examination without abnormal findings (principal); J45.909 Unspecified asthma, uncomplicated; M22.2X1 Patellofemoral disorders, right knee; M22.2X2 Patellofemoral disorders, left knee | CPT/HCPCS: 99396 ==

== ENCOUNTER 2024-10-03 07:34 | Outpatient (REF) | payer MEDICARE, MEDICAID, SELFPAY ==
--- NOTE | ~2024-10-03 | US_ITS ---
EXAMINATION: US ABDOMEN COMPLETE CLINICAL INFORMATION: Unspecified abdominal pain.. COMPARISON: Renal ultrasound 11/21/2022. TECHNIQUE: Real-time imaging of the abdominal viscera. FINDINGS: PANCREAS: Visualized portions are unremarkable. ABDOMINAL AORTA: The proximal, mid, and distal segments are normal in caliber. INFERIOR VENA CAVA: Visualized portions are normal. LIVER: The liver is normal in size. The liver contour is normal. Parenchymal echogenicity is normal. No focal hepatic lesion. There is no intrahepatic biliary duct dilatation seen. GALLBLADDER: The gallbladder is physiologically distended without evidence of stones, sludge, polyps, wall thickening or pericholecystic fluid. Negative sonographic Campbell's sign. COMMON BILE DUCT: Normal in caliber measuring 0.5 cm in diameter. RIGHT KIDNEY: No hydronephrosis. No renal calculi or suspicious focal parenchymal lesions. The kidney measures 11.1 cm in maximum dimension. Upper pole simple cyst measuring 2.4 x 2.7 x 2.3 cm. LEFT KIDNEY: No hydronephrosis. No renal calculi or suspicious focal parenchymal lesions. The kidney measures 11.8. cm in maximum dimension. Mid pole and upper pole simple cysts, with upper pole cyst measuring 3.0 x 2.4 x 3.0 cm, and midpole cyst measuring 1.6 x 1.3 x 1.5 cm. SPLEEN: The spleen measures 9.6 cm in maximum dimension. FREE FLUID: None. US/US abdomen complete IMPRESSION: 1. Aside from renal cysts, normal examination. Electronically signed by: Ed Ventura MD 10/03/2024 08:32 AM EDT
--- OUTSIDE RECORDS SUMMARY | 2024-10-03 07:37 | XMS_ITS | Clinical Summary ---
Author Organization [facility] Address [address] [facility] [address] [place] [address] Care Team Providers Care Backup Administrative Coordinator Name Role Phone Unavailable Primary Care Provider Unavailabl e Allergies No known active allergies Medications No known medications Active Problems Problem Noted Date Diagnosed Date Ill-fitting dentures 08/02/2023 Encounters Date Type Department Care Team Description 07/31/2024 Telephone [facility] ADULT DENTAL [address] [place] [address] Kosta Marley DDS from Last 3 Months [...] Most Recently Relevant to Health Maintenance Insurance [facility] MEDICAID STAND ADULT
== END 2024-10-03 07:35 | disposition home or self-care (01) ==
LOC: HO.US 07:34
PROVIDERS: PCP Internal Medicine; Visit Provider Internal Medicine
DX: R10.9 Unspecified abdominal pain (principal)
CPT/HCPCS: 76700

== ENCOUNTER → 2024-10-03 07:35 | Outpatient (BNV) | payer MEDICARE, MEDICAID, SELFPAY | PROVIDERS: PCP Internal Medicine; Visit Provider Radiology Diagnostic Radiology | DX: N28.1 Cyst of kidney, acquired (principal) | CPT/HCPCS: 76700 ==

== ENCOUNTER 2024-12-02 11:19 | Outpatient (AMB) | payer MEDICARE, MEDICAID, SELFPAY ==
[2024-12-02 11:26] VITALS: BMI 28.6
--- NOTE | 2024-12-02 11:26 | MHC.OFFVIS ---
Vital Signs 12/02/24 11:26 Height 5 ft 11 in Weight 205 lb BMI 28.6 Intake Visit Reasons: OV-B/L knee pain OA-limited W/B Intake Note: Jeaneth 63 year old male who presents today for a follow up of bilateral knee OA, last left knee injection on 11/08/23. Patient reports his last injection provided him with about 2 months of relief. He would like to discuss other options. Currently with weight bear on his left leg his pain presents below his knee cap. He feels sharp stabbing pain in the bottom of his right foot with weight bear. States both of his knees are equal in pain. Finds temporary relief with Tylenol and Motrin. He has very little relief with naproxen. Allergies shellfish derived Allergy (Severe, Verified 12/02/24 11:38) Anaphylaxis HPI HPI OV-B/L knee pain OA-limited W/B: Details: 64-year-old gentleman presents to the office today for bilateral knee pain. Previously saw me approximately a year ago for his left knee with an injection which he states worked well. Also has a knee brace on the left knee which is been quite supportive and allows him to perform activities with stability. [facility] Medical History Sleep apnea Asthma GERD (gastroesophageal reflux disease) Tubular adenoma Abdominal pain Screening for prostate cancer Depression Fatigue Epidermal inclusion cyst Surgical History History of bunionectomy History of excision of epidermal inclusion cyst (~04/09/20) History of colonoscopy (~05/2011) History of esophagogastroduodenoscopy (EGD) (~05/2011) History of left knee surgery (~04/2016) History of hernia repair (~1990) History of removal of cyst (~04/2019) Family History Father History of hypertension History of heart disease History of diabetes mellitus Mother History of skin cancer Sister History of arthritis History of colon cancer History of breast cancer Mental health disorder Son No problems noted. Daughter No problems noted. Social History Housing: Apartment Alcohol intake: never Patient Tobacco Use Status: Former Tobacco user Tobacco use type: Cigarette e-Cigarette/Vaping Use: Never Used Second Hand Smoke Exposure: Yes service: No Current occupational status: unemployed and disabled Current occupation: left hand Cognitive needs: Yes Hearing needs: No Vision needs: No Review of Systems Const All systems reviewed & are unremarkable except as noted in HPI and below Physical Exam Vital Signs: BMI result Body Mass Index 28.6 Extrem Other: Right knee: Skin intact, no erythema or joint effusion. Tenderness along the medial and lateral joint line. Full ROM with crepitus. Negative Angella?s. No ligamentous laxity. NVI. Left knee: Skin intact, no erythema or joint effusion. Lateral retropatellar tenderness present. Full ROM with crepitus. Negative Angella?s. No ligamentous laxity. NVI. Office Procedures AMB Joint Injection/Aspiration Joint Injection/Aspiration Primary Site: right knee Secondary Site: left knee Prep: site was prepped using aseptic technique, ethochloride spray was applied and injection warnings given Injected: 40 mg of, DepoMedrol, with 8 mL of, 1% plain lidocaine and in the joint Approach Used: anterolateral Procedure: The patient tolerated the procedure well and there was some relief with the local anesthesia Coding 64668 - Glenohumeral/Tronchanteric Bursa/Intraarticular Procedure code (CPT) selection complete Assessment & Plan Assessment & Plan (1) Patellofemoral disorder of both knees: Code(s): M22.2X1 - Patellofemoral disorders, right knee; M22.2X2 - Patellofemoral disorders, left knee Category: Medical Plan We discussed options today which include steroid injection. They did consent to move forward with bilateral knee injection, which was tolerated well. I recommended rest, ice and elevation and OTC anti-inflammatories PRN for discomfort. He was also given a Santhosh Pull brace in the office today for both knees. If symptoms persist or worsens over the next 6-8 weeks, patient will contact the office, otherwise follow-up as needed. Coding Level of Care Code Est Pt Level 3 (93204) Complex EM visit Add On G2211 Diagnoses Patellofemoral disorder of both knees M22.2X1; M22.2X2 CPT Codes Coding - Joint 7: 37742 - Glenohumeral/Tronchanteric Bursa/Intraarticular ([id number])
--- OUTSIDE RECORDS SUMMARY | 2024-12-02 12:11 | XMS_ITS | Encounter Summary ---
Author Organization [facility] Address [address] [place] [address] [address] [place] [address] Care Team Providers Care Account Representative Name Role Phone Unavailable Primary Care Provider Unavailabl e Encounter Details Date Type Department Care Team (Latest Contact Info) Description 09/03/2019 Abstract C CONVERSIONS Dental, Provider, DDS Social History Tobacco [...]
--- OUTSIDE RECORDS SUMMARY | 2024-12-02 12:11 | XMS_ITS | Clinical Summary ---
Author Organization [employer] [facility] Address [address] [place] [address] [address] [place] [address] Care Team Providers Care Copy Clerk Name Role Phone Unavailable Primary Care Provider Unavailabl e Allergies No known active allergies Medications No known medications Active Problems Problem Noted Date Diagnosed Date Ill-fitting dentures 08/02/2023 Social History Tobacco Use Types Packs/Day Years [...] 06/07/2018, Additional history exists COVID-19 Vaccine ( - season) 2024 05/25/2022, 06/29/2021, 11/03/2020, Additional history [...] Most Recently Relevant to Health Maintenance Insurance [facility] MEDICAID STAND ADULT
== END 2024-12-02 12:14 | disposition home or self-care (01) ==
LOC: HO.HOS 11:20
PROVIDERS: PCP Internal Medicine; Visit Provider Physician Assistant
DX: M22.2X2 Patellofemoral disorders, left knee (principal); M22.2X1 Patellofemoral disorders, right knee
CPT/HCPCS: 20610; 99213

== ENCOUNTER → 2024-12-02 11:19 | Outpatient (BNVA) | payer MEDICARE, MEDICAID, SELFPAY | PROVIDERS: PCP Internal Medicine; Visit Provider Physician Assistant | DX: M22.2X1 Patellofemoral disorders, right knee (principal); M22.2X2 Patellofemoral disorders, left knee | CPT/HCPCS: 20610; 99212 ==

== ENCOUNTER 2024-12-13 13:24 | Outpatient (AMB) | payer MEDICARE, MEDICAID, SELFPAY ==
--- OUTSIDE RECORDS SUMMARY | 2024-12-13 13:27 | XMS_ITS | Encounter Summary ---
Author Organization [facility] Address [address] [place] [address] [address] [place] [address] Care Team Providers Care Document Control Assistant Name Role Phone Unavailable Primary Care Provider [...]
--- NOTE | 2024-12-13 13:54 | MHC.OFFVIS ---
Vital Signs 12/13/24 14:03 Height 5 ft 11 in Weight 205 lb BMI 28.6 BP 128/74 Blood Pressure Location Rt brachial Position Sitting Pulse 68 Pulse Source Pulse Oximeter Pulse Oximetry (%) 95 Oxygen Delivery Method Room Air Intake Visit Reasons: FUV, GERD mgmt. Med Review Intake Note: ESTABLISHED PATIENT for mgmt of GERD. CC; C.O. intermittent episodes of DRB per rectum, constipation, and GERD persistence despite PPI. Pt has taken this rx for many years. Last EGD 2016. Last colo 2021. Terminologist Required: No Accompanied by: Self / Same As Patient Allergies shellfish derived Allergy (Severe, Verified 12/13/24 13:58) Anaphylaxis HPI HPI FUV, GERD mgmt. Med Review: Details: LAST VISIT 04/18/2023 GERD (gastroesophageal reflux disease) Continue omeprazole. Patient was encouraged to avoid dietary triggers in late night snacking. Staying upright for minimum 3 hours after meals discussed with patient. Constipation Will send script for magnesium oxide. Patient was encouraged to increase fluid intake and activity to promote better bowel motility. I will see him in 1 year, sooner on as needed basis. Patient is agreeable to this plan and verbalizes understanding of instructions. He was given the opportunity to ask questions all questions answered. ? Thank you for allowing me to participate in his care Plan Medications New magnesium oxide 400 mg PO DAILY 120 tabs 2RF TODAY'S VISIT Patient is here today for follow-up of her visit. Last seen year and half ago. Patient reports that he is experiencing constipation occasional blood after having a bowel movement. Not taking anything except magnesium oxide daily. Current 1 was experiencing worsening acid reflux. Patient does admit that he is not always being healthy. Currently taking omeprazole twice a day. Patient is due to go for colonoscopy this year in May. Denies otherwise melena, unintentional weight loss or ribbon like stools. Denies any dyspepsia, dysphagia or odynophagia. Occasional abdominal bloating when constipated. [facility] Medical History Sleep apnea Asthma GERD (gastroesophageal reflux disease) Tubular adenoma Abdominal pain Screening for prostate cancer Depression Fatigue Epidermal inclusion cyst Surgical History History of bunionectomy History of excision of epidermal inclusion cyst (~04/09/20) History of colonoscopy (~05/2011) History of esophagogastroduodenoscopy (EGD) (~05/2011) History of left knee surgery (~04/2016) History of hernia repair (~1990) History of removal of cyst (~04/2019) Family History Father History of hypertension History of heart disease History of diabetes mellitus Mother History of skin cancer Sister History of arthritis History of colon cancer History of breast cancer Mental health disorder Son No problems noted. Daughter No problems noted. Social History Housing: Apartment Alcohol intake: never Patient Tobacco Use Status: Former Tobacco user Tobacco use type: Cigarette e-Cigarette/Vaping Use: Never Used Second Hand Smoke Exposure: Yes service: No Current occupational status: unemployed and disabled Current occupation: left hand Cognitive needs: Yes Hearing needs: No Vision needs: No Review of Systems Const Denies weight gain and Denies weight loss ENT Reports no additional complaints, Denies dysphagia and Denies odynophagia Card Reports no additional complaints Resp Reports no additional complaints GI Denies abdominal pain, Denies belching, Denies melena, Denies bloating, Denies change in bowel habits, Reports constipation, Denies dysphagia, Denies excessive flatus, Denies dyspepsia, Reports heartburn, Denies diarrhea, Denies loose stools, Denies nausea, Denies odynophagia and Denies vomiting Reports no additional complaints Musc Reports no additional complaints Neuro Reports no additional complaints Psych Reports no additional complaints Endo Reports no additional complaints Physical Exam Vital Signs: Last Vital Signs Pulse 68 12/13/24 14:03 BP 128/74 12/13/24 14:03 Pulse Ox 95 12/13/24 14:03 Oxygen Delivery Method Room Air 12/13/24 14:03 BMI result Body Mass Index 28.6 Const General: healthy appearing, no acute distress and well developed Nutritional Appearance: well nourished Orientation/consciousness: patient oriented x3 Resp Effort & Inspection: normal respiratory effort, able to speak in complete sentences, no tracheal deviation and symmetric chest movement Auscultation: clear to auscultation bilaterally Cardio Rate: regular rate GI Inspection: Yes normal to inspection and No distended Palpation (GI): Soft to palpation, not firm, nontender and No hepatosplenomegaly present Auscultation: normal bowel sounds General: Yes no CVA tenderness Back/Spine/Pelvis Back: no CVA tenderness Skin General skin exam: elasticity normal, turgor normal and dry skin Neuro General: patient oriented x3 Psych Appearance: grossly normal Mental Status: mental status grossly normal Assessment & Plan Assessment & Plan (1) GERD (gastroesophageal reflux disease): Code(s): K21.9 - Gastro-esophageal reflux disease without esophagitis Category: Medical Qualifiers: Esophagitis presence: without esophagitis Qualified Code(s): K21.9 - Gastro-esophageal reflux disease without esophagitis (2) Constipation: Code(s): K59.00 - Constipation, unspecified Qualifiers: Constipation type: slow transit constipation Qualified Code(s): K59.01 - Slow transit constipation (3) Postprandial abdominal bloating: Code(s): R14.0 - Abdominal distension (gaseous) Plan Increase fluid intake and activity to from her bowel motility. Start Colace. Patient was also encouraged to increase fiber in his diet his continue taking omeprazole twice a day. Avoid dietary triggers and late night snacking. Staying upright for minimum 3 hours after meals discussed with patient. Patient will return in March so we can discuss and book colonoscopy for him as well as upper endoscopy. Patient is agreeable to this plan and verbalizes understanding of instructions was given the opportunity of stones removed questions answered. Thank you for allowing me to participate in his care Medications: New docusate sodium 100 mg PO BEDTIME 90 caps 3RF K59.00 - Constipation, unspecified Coding Level of Care Code Est Pt Level 3 (34267) Diagnoses Gastroesophageal reflux disease without esophagitis K21.9 Esophagitis presence: without esophagitis Slow transit constipation K59.01 Constipation type: slow transit constipation Postprandial abdominal bloating R14.0 Time Spent (min) 30 Comment 20 minutes spent with patient and additional 10 minutes spent reviewing his records
[2024-12-13 14:03] VITALS: BP 128/74; PULSE 68; O2SAT 95; BMI 28.6
== END 2024-12-13 14:25 | disposition home or self-care (01) ==
LOC: HO.HGI 13:25
PROVIDERS: PCP Internal Medicine; Visit Provider Nurse Practitioner Family
DX: K21.9 Gastro-esophageal reflux disease without esophagitis (principal); K59.01 Slow transit constipation; R14.0 Abdominal distension (gaseous)
CPT/HCPCS: 99213

== ENCOUNTER → 2024-12-13 13:24 | Outpatient (BNVA) | payer MEDICARE, MEDICAID, SELFPAY | PROVIDERS: PCP Internal Medicine; Visit Provider Nurse Practitioner Family | DX: K21.9 Gastro-esophageal reflux disease without esophagitis (principal); K59.01 Slow transit constipation; R14.0 Abdominal distension (gaseous); Z79.899 Other long term (current) drug therapy | CPT/HCPCS: 99212 ==

== ENCOUNTER 2025-01-01 10:12 | Outpatient (AMB) | payer MEDICARE, MEDICAID, SELFPAY ==
--- NOTE | 2025-01-01 10:55 | MHC.PC.OV ---
Vital Signs 01/01/25 10:57 Height 5 ft 11 in Weight 203 lb BMI 28.3 BP 124/68 Blood Pressure Location Lt brachial Position Sitting Intake Visit Reasons: nandini Dr Colunga/3months Intake Note: Patient here for transfer of care, c/o calf cramps Security Flex Utility Officer Required: No Accompanied by: Self / Same As Patient Allergies shellfish derived Allergy (Severe, Verified 01/01/25 11:41) Anaphylaxis Medication List - Last Reconciled 01/01/25 by Alla Kay MD albuterol sulfate 90 mcg/actuation (Ventolin HFA) 2 puffs inhalation Q4-6H PRN Breo Ellipta 200-25 mcg/dose (fluticasone furoate-vilanterol) 1 inh inhalation DAILY 30 days NS cholecalciferol (vitamin D3) 25 mcg PO DAILY clonazepam 0.5 mg PO BID clonidine HCl 0.2 - 0.4 mg PO BID diclofenac sodium 1% (Arthritis Pain (diclofenac)) 4 grams topical QID docusate sodium 100 mg PO BEDTIME fluoxetine 40 mg PO DAILY ibuprofen 800 mg PO TID ipratropium-albuterol 0.5 mg-3 mg(2.5 mg base)/3 mL 3 mL inhalation QID PRN [left knee brace As directed] loratadine 10 mg PO DAILY PRN magnesium oxide 400 mg PO DAILY naproxen (Naprosyn) 500 mg PO BID PRN omeprazole 20 mg PO BID quetiapine 400 mg PO BID [Shower chair As directed] tadalafil (Cialis) 20 mg PO .PRN 90 days tadalafil (Cialis) 5 mg PO DAILY 90 days tamsulosin 0.4 mg PO BEDTIME 90 days umeclidinium 62.5 mcg/actuation (Incruse Ellipta) 1 inh inhalation DAILY Tobacco use date assessed: 08/21/24 Dental Screening Dental Screen Date: 01/01/25 Did you have a dental visit in the last 12 months?: No Did you have a dental problem in the last 6 months where you did not have access to dental care?: No Was dental information given to patient?: Patient declined HPI HPI Comments History of Present Illness Details The patient is a 64-year-old male presenting for a follow-up on multiple chronic conditions and preventative care. The patient has a history of an adenomatous polyp discovered during a colonoscopy in 2021, with follow-up scheduled with gastroenterology in March. The patient reports asthma, managed with inhalers, and denies any recent exacerbations. The patient is under psychiatric care for depression with anxiety, managed with fluoxetine and clonazepam, prescribed by Dr. Smith. The patient experiences constipation, managed with docusate, and knee arthritis, for which ibuprofen is used for pain relief. The patient has allergic rhinitis, managed with loratadine, and gastroesophageal reflux disease, managed with omeprazole. The patient has benign prostatic hyperplasia and erectile dysfunction, managed with tamsulosin and Cialis respectively. The patient has a history of prediabetes, with previous glucose levels noted at 112 mg/dL. [facility] Medical History (Updated 01/01/25 @ 13:44 by Alla Kay MD) Sleep apnea Asthma GERD (gastroesophageal reflux disease) Tubular adenoma Abdominal pain Screening for prostate cancer Depression Fatigue Epidermal inclusion cyst Surgical History History of bunionectomy History of excision of epidermal inclusion cyst (~04/09/20) History of colonoscopy (~05/2011) History of esophagogastroduodenoscopy (EGD) (~05/2011) History of left knee surgery (~04/2016) History of hernia repair (~1990) History of removal of cyst (~04/2019) Family History Father History of hypertension History of heart disease History of diabetes mellitus Mother History of skin cancer Sister History of arthritis History of colon cancer History of breast cancer Mental health disorder Son No problems noted. Daughter No problems noted. Social History Housing: Apartment Alcohol intake: never Patient Tobacco Use Status: Former Tobacco user Tobacco use type: Cigarette e-Cigarette/Vaping Use: Never Used Second Hand Smoke Exposure: Yes service: No Current occupational status: unemployed and disabled Current occupation: left hand Cognitive needs: Yes Hearing needs: No Vision needs: No Questionnaire PHQ-9 Over the last 2 weeks, how often have you been bothered by any of the following problems? 1. Little interest or pleasure in doing things: not at all 2. Feeling down, depressed, or hopeless: several days 3. Trouble falling or staying asleep, or sleeping too much: not at all 4. Feeling tired or having little energy: not at all 5. Poor appetite or overeating: several days 6. Feeling bad about yourself - or that you are a failure or have let yourself or your family down: not at all 7. Trouble concentrating on things, such as reading the newspaper or watching television: several days 8. Moving or speaking so slowly that other people could have noticed. Or the opposite - being so fidgety or restless that you have been moving around a lot more than usual: not at all 9. Thoughts that you would be better off or of hurting yourself in some way: not at all Total score: 3 Depression Screening Interpretation: Positive Depression Screening Follow-up: Existing condition and Follow-up Visit Requested Depression Screening Done: Yes 10558 - PHQ-9 Billing: Yes Source: Developed by Drs. Red Duggan, Ashley Jhaveri, Humberto Barreto and colleagues, with an educational waylon from [employer]. Thrive Questionnaire Date Thrive assessed: 01/01/25 I am a: Patient What is your living situation today?: I have a steady place to live Within the past 12 months, did the food you bought not last and you didn't have the money to get more?: I choose not to answer this question Within the past 12 months, did you worry whether your food would run out before you got money to buy more?: I choose not to answer this question Do you have trouble paying for medicines?: I choose not to answer this question Do you have trouble getting transportation to medical appointments?: I choose not to answer this question Do you have trouble paying your heating and electricity bill?: I choose not to answer this question Do you have trouble taking care of your child, family member or friend?: I choose not to answer this question Do you have trouble with day-to-day activities such as bathing, preparing meals, shopping, managing finances, etc.?: I choose not to answer this question Are you currently unemployed and looking for a job?: I choose not to answer this question Are you interested in more education?: I choose not to answer this question Please select the resources that you would like help with: None Currently or been in a relationship where the following occur: I choose not to answer THRIVE Score: 0 AUDIT C Alcohol Use Questionnaire (AUDIT-C) 1. How often do you have a drink containing alcohol?: Never Total Score: 0 Score Reviewed/Action Taken: No UGS-7 AMB Questionnaire GUS-7 Date GUS - 7 assessed: 01/01/25 Feeling nervous, anxious, or on edge: 0 = Not at all Not being able to stop or control worryin = Not at all Worrying too much about different things: 0 = Not at all Trouble relaxin = Not at all Being so restless that it is hard to sit still: 0 = Not at all Becoming easily annoyed or irritable: 0 = Not at all Feeling afraid as if something awful might happen: 0 = Not at all Total GUS-7 score (0-4 normal; 5-9 mild; 10-14 moderate; 15-21 severe): 0 Source: Developed by Drs. Red Duggan, Ashley Jhaveri, Humberto Barreto and colleagues, with an educational waylon from [employer]. GUS-7 Assessment Billing GUS-7 Assessment Tool: GUS-7 Assessment 51447 Review of Systems Const All systems reviewed & are unremarkable except as noted in HPI and below Card Denies chest pain at rest, Denies chest pain with activity, Denies edema, Denies irregular heart rhythm, Denies claudication, Denies dyspnea, Denies dyspnea on exertion, Denies orthopnea, Denies paroxysmal nocturnal dyspnea and Denies slow heart rate Resp Denies cough, Denies dyspnea and Denies dyspnea on exertion Physical exam (Primary Care) Vital Signs: Last Vital Signs BP 124/68 01/01/25 10:57 BMI result Body Mass Index 28.3 Tobacco/Smoking Status: Tobacco use Status Tobacco use date assessed 08/21/24 01/01/25 11:03 Patient Tobacco Use Status Former Tobacco user 01/01/25 11:03 Tobacco use type Cigarette 01/01/25 11:03 e-Cigarette/Vaping Use Never Used 01/01/25 11:03 PHQ-9: PHQ-9 Score PHQ-9: Total score 3 01/01/25 11:21 Depression Screening Interpretation: Positive Depression Screening Follow-up: Existing condition and Follow-up Visit Requested Thrive Assessment: Date of Thrive Assessment Date Thrive assessed 01/01/25 01/01/25 11:03 Currently or been in a relationship where the following occur: I choose not to answer Resp Effort & Inspection: normal respiratory effort Auscultation: clear to auscultation bilaterally Cardio Jugular venous distension: no JVD Rate: regular rate Rhythm: regular rhythm Heart sounds: S1 normal heart sound present and S2 normal heart sound present Extrem General: Yes full ROM Results AMB Urinalysis, Automated UA Leukoctes 0 [place]/uL Last Edit by Lizette Gomez on 01/01/25 11:50 UA Nitrite Negative Last Edit by Lizette Gomez on 01/01/25 11:50 UA Urobilinogen 3.5 mg/dL Last Edit by Lizette Gomez on 01/01/25 11:50 UA Protein 0 mg/dL Last Edit by Lizette Gomez on 01/01/25 11:50 UA pH 7.0 Last Edit by Lizette Gomez on 01/01/25 11:50 UA Blood 0 Antoni/uL Last Edit by Lizette Gomez on 01/01/25 11:50 UA Specific [place] 1.010 Last Edit by Lizette Gomez on 01/01/25 11:50 UA Ketone Negative Last Edit by Lizette Gomez on 01/01/25 11:50 UA Bilirubin 0 mg/dL Last Edit by Lizette Gomez on 01/01/25 11:50 UA Glucose 0 mg/dL Last Edit by Lizette Gomez on 01/01/25 11:50 Coding Level of Care Code Est Pt Level 4 (20649) Complex EM visit Add On G2211 Diagnoses Impaired glucose tolerance R73.02 TSH elevation R79.89 Asthma J45.909 Gastroesophageal reflux disease without esophagitis K21.9 Esophagitis presence: without esophagitis Mild recurrent major depression F33.0 Anxiety F41.9 Additional Codes GUS-7 Assessment Billing - GUS-7 Assessment Tool: GUS-7 Assessment 00778 ([id number]) PHQ-9 - 02484 - PHQ-9 Billing: Yes ([id number]) Time Spent (min) 23 Assessment & Plan Assessment & Plan (1) Impaired glucose tolerance: Code(s): R73.02 - Impaired glucose tolerance (oral) Category: Medical (2) TSH elevation: Code(s): R79.89 - Other specified abnormal findings of blood chemistry Category: Medical (3) Asthma: Code(s): J45.909 - Unspecified asthma, uncomplicated Category: Medical (4) GERD (gastroesophageal reflux disease): Code(s): K21.9 - Gastro-esophageal reflux disease without esophagitis Category: Medical Qualifiers: Esophagitis presence: without esophagitis Qualified Code(s): K21.9 - Gastro-esophageal reflux disease without esophagitis (5) Mild recurrent major depression: Code(s): F33.0 - Major depressive disorder, recurrent, mild Category: Medical (6) Anxiety: Code(s): F41.9 - Anxiety disorder, unspecified Category: Medical Plan The patient will continue management of asthma with current inhalers and monitor for any exacerbations. Psychiatric care for depression with anxiety will continue under Dr. Smith with current medications. The patient will maintain the use of docusate for constipation and ibuprofen for knee arthritis pain management. Allergic rhinitis will be managed with loratadine, and gastroesophageal reflux disease with omeprazole. Benign prostatic hyperplasia and erectile dysfunction will continue to be managed with tamsulosin and Cialis respectively. The patient will undergo laboratory tests to monitor glucose levels, kidney function, and cholesterol in four months. Patient was informed and verbally consented to the use of an ambient scribe for clinic note documentation during this visit. Orders: Orders Free T4 (Free Thyroxine) Today R79.89 - Other specified abnormal findings of blood chemistry Thyroglobulin Antibodies Today R79.89 - Other specified abnormal findings of blood chemistry Thyroid Peroxidase Antibodies Today R79.89 - Other specified abnormal findings of blood chemistry Complete Blood Count Auto Diff Today D64.9 - Anemia, unspecified IRON PROFILE Today D64.9 - Anemia, unspecified Vitamin B12 and Folate Today E53.8 - Deficiency of other specified B group vitamins Lipid Panel Today E78.5 - Hyperlipidemia, unspecified Thyroid Stimulating Hormone Today R79.89 - Other specified abnormal findings of blood chemistry Comprehensive [place]. Panel Fast Today R73.02 - Impaired glucose tolerance (oral) Medications: New ibuprofen 800 mg PO TID 90 tabs 1RF 30 days Refilled magnesium oxide 400 mg PO DAILY 120 tabs 2RF
[2025-01-01 10:57] VITALS: BP 124/68; BMI 28.3
--- OUTSIDE RECORDS SUMMARY | 2025-01-01 11:31 | XMS_ITS | Encounter Summary ---
Author Organization [employer] [facility] Address [address] [place] [address] [address] [place] [address] Care Team Providers Care Production Clerks Supervisor Name Role Phone Unavailable Primary Care Provider [...]
== END 2025-01-01 11:31 | disposition home or self-care (01) ==
PROVIDERS: PCP Internal Medicine; Visit Provider Internal Medicine
DX: R73.02 Impaired glucose tolerance (oral) (principal); R79.89 Other specified abnormal findings of blood chemistry; J45.909 Unspecified asthma, uncomplicated; K21.9 Gastro-esophageal reflux disease without esophagitis; F33.0 Major depressive disorder, recurrent, mild; F41.9 Anxiety disorder, unspecified

== ENCOUNTER → 2025-01-01 10:12 | Outpatient (BNVA) | payer MEDICARE, MEDICAID, SELFPAY | PROVIDERS: PCP Internal Medicine; Visit Provider Internal Medicine | DX: N52.9 Male erectile dysfunction, unspecified (principal); R35.1 Nocturia; R68.82 Decreased libido; R33.9 Retention of urine, unspecified; R73.02 Impaired glucose tolerance (oral); R79.89 Other specified abnormal findings of blood chemistry; J45.909 Unspecified asthma, uncomplicated; K21.9 Gastro-esophageal reflux disease without esophagitis; F41.9 Anxiety disorder, unspecified; F33.0 Major depressive disorder, recurrent, mild | CPT/HCPCS: 81003; 96127; 99212 ==

== ENCOUNTER 2025-01-01 11:35 | Outpatient (AMB) | payer MEDICARE, MEDICAID, SELFPAY ==
--- NOTE | 2025-01-01 11:40 | MHC.OFFVIS ---
Intake Visit Reasons: 6m followup Intake Note: Patient presents today for 6m follow up Urology Medications: tamsulosin,tadalafil Blood Thinner: none PVR:147ml Medicaid Billing Specialist Required: No Allergies shellfish derived Allergy (Severe, Verified 01/01/25 22:42) Anaphylaxis Medication List - Last Reconciled 01/01/25 by MORGAN Guerrero- albuterol sulfate 90 mcg/actuation (Ventolin HFA) 2 puffs inhalation Q4-6H PRN Breo Ellipta 200-25 mcg/dose (fluticasone furoate-vilanterol) 1 inh inhalation DAILY 30 days NS cholecalciferol (vitamin D3) 25 mcg PO DAILY clonazepam 0.5 mg PO BID clonidine HCl 0.2 - 0.4 mg PO BID diclofenac sodium 1% (Arthritis Pain (diclofenac)) 4 grams topical QID docusate sodium 100 mg PO BEDTIME fluoxetine 40 mg PO DAILY ibuprofen 800 mg PO TID 30 days ipratropium-albuterol 0.5 mg-3 mg(2.5 mg base)/3 mL 3 mL inhalation QID PRN [left knee brace As directed] loratadine 10 mg PO DAILY PRN magnesium oxide 400 mg PO DAILY naproxen (Naprosyn) 500 mg PO BID PRN omeprazole 20 mg PO BID quetiapine 400 mg PO BID [Shower chair As directed] tadalafil (Cialis) 20 mg PO .PRN 90 days tadalafil (Cialis) 5 mg PO DAILY 90 days tamsulosin 0.4 mg PO BEDTIME 90 days umeclidinium 62.5 mcg/actuation (Incruse Ellipta) 1 inh inhalation DAILY HPI Comments Details: Amado is a pleasant 64-year-old Tajik-speaking patient of Dr. Colunga. He has a past medical history of sleep apnea, asthma, GERD, depression, and fatigue. He presents to the office today for follow-up of his erectile dysfunction, low libido, and urinary urgency. In discussion with the patient today reports to be doing and feeling well. He denies having had any bothersome urological issues or concerns since his last office visit here. He reports compliance with daily dosing of tadalafil as well as p.r.n. dosing prior to sexual activity and feels this has been helpful in maintaining his erections. He also reports compliance with Flomax as prescribed. He currently denies any bothersome urinary issues or concerns. He denies urinary urgency, urinary frequency, incontinence, nocturia, hematuria, dysuria, foul smelling urine, changes to urinary stream, flank pain, fever, and or chills. Urological labs are as follows: Testosterone 12/13 401, free testosterone 52.9 PSAs: 03/14 0.6, 09/15 0.4, 05/16 0.9 In office urinalysis results reviewed with the patient today. PVR 147 mL Discussed at length importance of adequate sleep, healthy eating habits, daily exercise/brisk walking daily and maintaining healthy weight. He otherwise offers no other issues or concerns at this time. [facility] Medical History Sleep apnea Asthma GERD (gastroesophageal reflux disease) Tubular adenoma Abdominal pain Screening for prostate cancer Depression Fatigue Epidermal inclusion cyst Surgical History History of bunionectomy History of excision of epidermal inclusion cyst (~04/09/20) History of colonoscopy (~05/2011) History of esophagogastroduodenoscopy (EGD) (~05/2011) History of left knee surgery (~04/2016) History of hernia repair (~1990) History of removal of cyst (~04/2019) Family History Father History of hypertension History of heart disease History of diabetes mellitus Mother History of skin cancer Sister History of arthritis History of colon cancer History of breast cancer Mental health disorder Son No problems noted. Daughter No problems noted. Social History Housing: Apartment Alcohol intake: never Patient Tobacco Use Status: Former Tobacco user Tobacco use type: Cigarette e-Cigarette/Vaping Use: Never Used Second Hand Smoke Exposure: Yes service: No Current occupational status: unemployed and disabled Current occupation: left hand Cognitive needs: Yes Hearing needs: No Vision needs: No Review of Systems Const Reports as per HPI Eyes Reports no additional complaints ENT Reports as per HPI Card Reports no additional complaints Resp Reports as per HPI GI Reports as per HPI Reports as per HPI Musc Reports no additional complaints Neuro Reports as per HPI Psych Reports as per HPI Endo Reports no additional complaints Physical Exam Const General: cooperative, healthy appearing, comfortable, no acute distress, well developed, alert and awake Nutritional Appearance: average body habitus Orientation/consciousness: patient oriented x3 Limitations: no limitations HEENT Head: Yes normal to inspection, Yes normocephalic and Yes atraumatic Ears: hearing grossly normal bilaterally Eyes General: appearance normal, both eyes and all related structures Neck Neck: Yes normal visual inspection and Yes trachea midline Chest Chest palpation & inspection: normal inspection of the chest Resp Effort & Inspection: normal respiratory effort and able to speak in complete sentences Cardio Rate: regular rate GI Inspection: Yes normal to inspection General: Yes no CVA tenderness Back/Spine/Pelvis Back: no CVA tenderness Skin General skin exam: no rashes or lesions noted Neuro General: patient oriented x3 Extrem General: Yes normal to inspection Psych Appearance: grossly normal and well kempt Mental Status: mental status grossly normal Speech and movement: Normal speech and movement present and Clear speech present Affect: normal affect Attitude: cooperative Thought process: Normal thought process present Thought content: Normal thought content present Insight: Fair insight present (Psych) Judgement: Fair judgement present (Psych) Results AMB Urinalysis, Automated UA Leukoctes 0 [place]/uL Last Edit by Lizette Gomez on 01/01/25 11:50 UA Nitrite Negative Last Edit by Lizette Gomez on 01/01/25 11:50 UA Urobilinogen 3.5 mg/dL Last Edit by Lizette Gomez on 01/01/25 11:50 UA Protein 0 mg/dL Last Edit by Lizette Gomez on 01/01/25 11:50 UA pH 7.0 Last Edit by Lizette Gomez on 01/01/25 11:50 UA Blood 0 Antoni/uL Last Edit by Lizette Gomez on 01/01/25 11:50 UA Specific [place] 1.010 Last Edit by Lizette Gomez on 01/01/25 11:50 UA Ketone Negative Last Edit by Lizette Gomez on 01/01/25 11:50 UA Bilirubin 0 mg/dL Last Edit by Lizette Gomez on 01/01/25 11:50 UA Glucose 0 mg/dL Last Edit by Lizette Gomez on 01/01/25 11:50 Results Reviewed Results Reviewed: Laboratory Last Values Urine pH (Auto) 7.0 01/01/25 08:17 Specific [place] (Auto) 1.010 01/01/25 08:17 Urine Protein (Auto) 0 mg/dL 01/01/25 08:17 Glucose (UA)(Auto) 0 mg/dL 01/01/25 08:17 Urine Ketones (Auto) Negative 01/01/25 08:17 Urine Blood (Auto) 0 Antoni/uL 01/01/25 08:17 Urine Nitrite (Auto) Negative 01/01/25 08:17 Urine Bilirubin (Auto) 0 mg/dL 01/01/25 08:17 Urine Urobilinogen (Auto) 3.5 mg/dL 01/01/25 08:17 Leukocyte Esterase (Auto) 0 [place]/uL 01/01/25 08:17 Assessment & Plan Assessment & Plan (1) Erectile dysfunction: Code(s): N52.9 - Male erectile dysfunction, unspecified Category: Medical (2) Nocturia: Code(s): R35.1 - Nocturia Category: Medical (3) Low libido: Code(s): R68.82 - Decreased libido Category: Medical (4) Incomplete bladder emptying: Code(s): R33.9 - Retention of urine, unspecified Category: Medical Plan In office urinalysis results with the patient today; as noted above. PVR 147 mL. He currently denies any bothersome urinary issues or concerns. He reports be happy with current voiding parameters. We discussed double voiding to assist with incomplete bladder emptying as well as attempting to sit when voiding to relax pelvis to assist with incomplete bladder emptying. Will continue with Flomax and Cialis as prescribed. Will continue with surveillance monitoring. Will obtain PSA Follow-up in 4 months with PSA and PVR to be completed prior; or sooner with any issues, concerns, and or questions. Orders: Orders AMB Urinalysis Automated Today Z13.9 - Encounter for screening, unspecified AMB Post Void Residual by ultrasound Today R35.1 - Nocturia Prostate Specific Antigen Today R33.9 - Retention of urine, unspecified Patient Instructions: The patient had an opportunity to ask questions regarding the treatment plan. All questions were answered. Physical exam, labs, and imaging were discussed and reviewed in detail. As well as risks, benefits, and discussion of treatment choices. No major barriers to understanding were identified. The patient expressed understanding and agreement with the above treatment plan. The patient was made aware they should contact our office by phone for worsening of their current condition, the appearance of new symptoms, or with any questions or concerns. Compliance is encouraged with any medications and follow up testing that is ordered. It is a privilege to be allowed the opportunity to participate in? your urological care.? Again, if you have any questions or concerns If you have any questions or concerns please do not hesitate to contact me. The office is [phone]. This note is constructed using voice recognition software. While every effort has been made to ensure accuracy tightening machine operator errors may have been included. Yours sincerely, YARITZA Guerrero Coding Level of Care Code Est Pt Level 3 (22669) Diagnoses Erectile dysfunction N52.9 Nocturia R35.1 Low libido R68.82 Incomplete bladder emptying R33.9
== END 2025-01-01 12:09 | disposition home or self-care (01) ==
PROVIDERS: PCP Internal Medicine; Visit Provider Nurse Practitioner Family
DX: N52.9 Male erectile dysfunction, unspecified (principal); R35.1 Nocturia; R68.82 Decreased libido; R33.9 Retention of urine, unspecified; Z13.9 Encounter for screening, unspecified
CPT/HCPCS: 99213

== ENCOUNTER 2025-01-07 07:14 | Outpatient (REF) | payer MEDICARE, MEDICAID, SELFPAY ==
--- OUTSIDE RECORDS SUMMARY | 2025-01-07 07:17 | XMS_ITS | Encounter Summary ---
Author Organization [employer] [facility] Address [address] [place] [address] [address] [place] [address] Care Team Providers Care Yarder Engineer Name Role Phone Unavailable Primary Care Provider [...]
[2025-01-07 07:33] LABS: MANUAL DIFF FLAG NO
[2025-01-07 08:07] LABS: Basophils Absolute Auto 0.1 X10*3/uL (0.0-0.2); Basophils Percent Auto 1.3 % (0-2); Eosinophils Absolute Auto 0.5 X10*3/uL (0.0-0.4); Hemoglobin 13.7 g/dl (14.0-18.0); Imm Gran Abs Auto 0.01 X10*3/uL (0.00-0.03); Imm Gran Pct Auto 0.1 % (0.0-0.4); Lymphocytes Absolute Auto 2.1 X10*3/uL (1.2-4.9); Lymphocytes Percent Auto 28.2 % (20-40); Mean Corpuscular HGB Conc 35.1 g/dl (31.0-36.0); Mean Corpuscular Hemoglobin 29.9 pg (27.0-33.0); Mean Corpuscular Volume 85.2 fL (80.0-98.0); Mean Platelet Volume 10.4 fL (9.4-12.4); Monocytes Absolute Auto 0.5 X10*3/uL (0.1-1.2); Monocytes Percent Auto 7.2 % (2-11); Neutrophils Absolute Auto 4.2 x10*3/uL (2.0-8.3); Neutrophils Percent Auto 56.2 % (45-73); Platelet Count 250 X10*3/uL (160-400); Red Blood Count 4.58 X10*6/uL (4.60-5.80); Red Cell Distribution Width 11.5 % (11.0-16.0); White Blood Count 7.5 X10*3/uL (4.8-10.8)
[2025-01-07 08:46] LABS: Alanine Aminotransferase 16 U/L (0-40); Albumin Level 4.4 g/dL (3.5-5.0); Alkaline Phosphatase 74 U/L (39-117); Anion Gap 11 (12-20); Aspartate Amino Transferase 28 U/L (5-37); Bilirubin Total 0.5 mg/dL (0.0-1.0); Blood Urea Nitrogen 9 mg/dL (9-16); Calcium 9.6 mg/dL (8.4-10.2); Carbon Dioxide 27 mmol/L (22-29); Chloride 107 mmol/L (96-108); Cholesterol 162 mg/dL (<200); Estimated Glomerular Filt Rate > 60; Glucose Fasting 116 mg/dL (60-99); HDL Cholesterol 37 mg/dL (>40); Iron 84 mcg/dL (45-160); LDL Cholesterol Calculated 102 mg/dL (<100); Percent Iron Saturation 32 % (15-50); Potassium 3.8 mmol/L (3.3-5.1); Sodium 141 mmol/L (135-145); Total Iron Binding Capacity 261 mcg/dL (228-428); Total Protein 7.8 g/dL (6.5-8.0); Triglycerides 119 mg/dL (<150); Unsaturated Iron Binding 177 ug/dL
[2025-01-07 09:04] LABS: Free T4 (Free Thyroxine) 1.12 ng/dL (0.71-1.85)
[2025-01-07 09:06] LABS: Prostate Specific Antigen 0.62 ng/mL (<0.05-4.0)
[2025-01-07 09:20] LABS: Folate 6.5 ng/mL (> or = 4.0); Vitamin B12 560 pg/mL (200-900)
[2025-01-08 18:33] LABS: Thyroglobulin Antibodies <1 IU/mL (< or = 1); Thyroid Peroxidase Antibodies <1 IU/mL (<9)
== END 2025-01-07 07:15 | disposition home or self-care (01) ==
LOC: HO.LAB 07:14
PROVIDERS: Absent Provider Internal Medicine; PCP Internal Medicine; Visit Provider Nurse Practitioner Family
DX: D64.9 Anemia, unspecified (principal); R73.02 Impaired glucose tolerance (oral); R94.6 Abnormal results of thyroid function studies; E78.5 Hyperlipidemia, unspecified; R33.9 Retention of urine, unspecified; E53.8 Deficiency of other specified B group vitamins; Z12.5 Encounter for screening for malignant neoplasm of prostate
CPT/HCPCS: 36415; 80053; 80061; 82607; 82746; 83540; 84153; 84439; 84443; 85025; 86376; 86800

== ENCOUNTER 2025-02-13 12:10 | Outpatient (AMB) | payer MEDICARE, MEDICAID, SELFPAY ==
[2025-02-13 12:28] VITALS: BP 110/74; PULSE 67; O2SAT 95; BMI 28.5
--- NOTE | 2025-02-13 12:28 | MHC.OFFVIS ---
Vital Signs 02/13/25 12:28 Height 5 ft 11 in Weight 204 lb 2.369 oz BMI 28.5 BP 110/74 Blood Pressure Location Lt brachial Position Sitting Pulse 67 Pulse Source Pulse Oximeter Pulse Oximetry (%) 95 Oxygen Delivery Method Room Air Intake Visit Reasons: abnormal findings of blood chemistry Intake Note: New patient present today for abnormal findings of blood chemistry. 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 Boring Machine Operator Services: Alarm Mechanism Adjuster Present Alarm Mechanism Adjuster Name: Patrick Agrawal Information Interpreted: non-clinical & clinical Accompanied by: Self / Same As Patient Allergies shellfish derived Allergy (Severe, Verified 02/13/25 12:33) Anaphylaxis Medication List - Last Reconciled 02/13/25 by Guadalupe Ennis MD albuterol sulfate 90 mcg/actuation (Ventolin HFA) 2 puffs inhalation Q4-6H PRN Breo Ellipta 200-25 mcg/dose (fluticasone furoate-vilanterol) 1 inh inhalation DAILY 30 days NS cholecalciferol (vitamin D3) 25 mcg PO DAILY clonazepam 0.5 mg PO BID clonidine HCl 0.2 - 0.4 mg PO BID diclofenac sodium 1% (Arthritis Pain (diclofenac)) 4 grams topical QID docusate sodium 100 mg PO BEDTIME fluoxetine 40 mg PO DAILY ibuprofen 800 mg PO TID 30 days ipratropium-albuterol 0.5 mg-3 mg(2.5 mg base)/3 mL 3 mL inhalation QID PRN [left knee brace As directed] loratadine 10 mg PO DAILY PRN magnesium oxide 400 mg PO DAILY naproxen (Naprosyn) 500 mg PO BID PRN omeprazole 20 mg PO BID quetiapine 400 mg PO BID [Shower chair As directed] tadalafil (Cialis) 20 mg PO .PRN 90 days tadalafil (Cialis) 5 mg PO DAILY 90 days tamsulosin 0.4 mg PO BEDTIME 90 days umeclidinium 62.5 mcg/actuation (Incruse Ellipta) 1 inh inhalation DAILY HPI Comments Details: 64-year-old male coming in today for initial evaluation of subclinical hyperthyroidism. Chart review shows that patient has had low TSH levels ranging anywhere from 0.2-0.29 since 2020. Normal free T4 levels. Most recently labs done 01/07/2025 showed low TSH of 0.2 with normal free T4 of 1.12, undetectable TPO antibodies. No TSI or TSH receptor antibodies done. In the past he has had evaluation for this where a thyroid uptake and scan was done in April 2022 which showed normal uptake with a homogeneous distribution of the activity with no focal abnormalities. No fracture or history of osteoporosis no heart disease or arrythmias No preceding CT scan No preceding viral illness Patient currently denies changes in appearance of eyes or vision changes, Some intermittent palpitations, once or twice a week, lasts for a few minutes, self resolves , since 3 months. reports some intermittent tremors. chronic many years. Thinks associated with panic attacks. reports increased diaphoresis no heat intolerance No diarrhea reports chronic constipation reports low energy and tiredness 3-4 months Patient denies any difficulty swallowing, pain on swallowing or voice changes or difficulty breathing. 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 reports some neck fullness. Patient denies any history of childhood neck radiation. Denies having ever used lithium, amiodarone or biotin supplements. 2 sisters have thyroid disease, one had thyroid cancer disabled on psychiatric depression quit smoking 15 years ago No drug use alcohol : 2-3 beers some saturdays Physical exam General: sitting comfortably in no acute distress HEENT: normocephalic/atraumatic, EOM intact, moist oral mucosa Neck: prominent thyroid Cardiac: normal heart sounds Pulm: normal breath sounds B/L, no added breath sounds Abd: not distended, no tenderness Extremities: no edema, no signs of myxedema, very mild tremor Neuro: AAO x3, Speech: normal, no facial droop, moving all 4 extremities Laboratory Tests 01/15/21 12/21/21 01/28/22 08:37 16:14 15:38 TSH 0.25 L 0.20 L 0.29 L Free T4 1.02 1.02 Thyroglobulin Antibody Thyroid Peroxidase Ab 09/13/22 01/07/25 10:43 07:32 TSH 0.25 L 0.20 L Free T4 1.12 Thyroglobulin Antibody <1 Thyroid Peroxidase Ab <1 THYROID UPTAKE AND SCAN 05/19/22 CLINICAL INFORMATION: Low TSH. COMPARISON: No previous thyroid scan is available for comparison. TECHNIQUE: Following the oral administration of 303 microcuries of I-123 sodium iodide, thyroid uptake was performed and expressed as a percentage of the administrated dose. Gamma scintillation camera images of the thyroid in the anterior and right and left anterior oblique views were obtained using a pinhole collimator following the administration of 10 mCi Tc-99m pertechnetate. FINDINGS: The uptake is 8.3% at 2 hours and 17.5% at 24 hours (Normal radioiodine uptake at 24 hours is 10% to 30%). The radioiodine uptake is normal. The radiopertechnetate thyroid scintigram demonstrates the thyroid gland to be normal in size, shape, and position. There is homogeneous distribution of activity within the the gland with no focal abnormalities noted. The trapping function appears normal. NM/NM thyroid w uptake IMPRESSION: Normal radioiodine uptake. Normal thyroid scan. [facility] Medical History (Updated 02/13/25 @ 12:57 by Guadalupe Ennis MD) Subclinical hyperthyroidism Sleep apnea Asthma GERD (gastroesophageal reflux disease) Tubular adenoma Abdominal pain Screening for prostate cancer Depression Fatigue Epidermal inclusion cyst Surgical History History of bunionectomy History of excision of epidermal inclusion cyst (~04/09/20) History of colonoscopy (~05/2011) History of esophagogastroduodenoscopy (EGD) (~05/2011) History of left knee surgery (~04/2016) History of hernia repair (~1990) History of removal of cyst (~04/2019) Family History Father History of hypertension History of heart disease History of diabetes mellitus Mother History of skin cancer Sister History of arthritis History of colon cancer History of breast cancer Mental health disorder Son No problems noted. Daughter No problems noted. Social History Housing: Apartment Alcohol intake: never Patient Tobacco Use Status: Former Tobacco user Tobacco use type: Cigarette e-Cigarette/Vaping Use: Never Used Second Hand Smoke Exposure: Yes service: No Current occupational status: unemployed and disabled Current occupation: left hand Cognitive needs: Yes Hearing needs: No Vision needs: No Physical Exam Vital Signs: Last Vital Signs Pulse 67 02/13/25 12:28 BP 110/74 02/13/25 12:28 Pulse Ox 95 02/13/25 12:28 Oxygen Delivery Method Room Air 02/13/25 12:28 BMI result Body Mass Index 28.5 Assessment & Plan Assessment & Plan (1) Low TSH level: Code(s): R79.89 - Other specified abnormal findings of blood chemistry Category: Medical Plan: See below (2) Subclinical hyperthyroidism: Code(s): E05.90 - Thyrotoxicosis, unspecified without thyrotoxic crisis or storm Category: Medical Plan: 64-year-old male coming in today for initial evaluation of subclinical hyperthyroidism. Chart review shows that patient has had low TSH levels ranging anywhere from 0.2-0.29 since 2020. Normal free T4 levels. Most recently labs done 01/07/2025 showed low TSH of 0.2 with normal free T4 of 1.12, undetectable TPO antibodies. No TSI or TSH receptor antibodies done. In the past he has had evaluation for this where a thyroid uptake and scan was done in April 2022 which showed normal uptake with a homogeneous distribution of the activity with no focal abnormalities. While his subclinical hyperthyroidism is mild in terms of his TSH level, he does have some nonspecific symptoms that could potentially be related to his thyroid such as intermittent palpitations, a mild tremor, some tiredness. Reports some excessive sweating. Usually it is okay to monitor this in low risk patients such as dose less than the age of 65 such as an his case with no history of osteoporosis or heart disease, or treatment is warranted if TSH is less than 0.1. In his case while this can be easily monitored, given some symptoms that are really bothersome to him, I would like to check his TSI and TSH receptor antibodies to work up the etiology of the subclinical hyperthyroidism. While that thyroid uptake and scan from 2021 showed homogeneous uptake it did have a normal result. On my exam he does have a slightly prominent thyroid, I would like to do a thyroid ultrasound especially given history of thyroid cancer in family. Plan: -ordered ultrasound of the thyroid -ordered TSH, free T4, total T3, TSH receptor and TSI antibody levels -follow up in 7-8 weeks to discuss results Plan I spent 45 minutes in reviewing the record, seeing the patient and documenting in the medical record. Orders: Orders Thyroid Stimulating Hormone Today E05.90 - Thyrotoxicosis, unspecified without thyrotoxic crisis or storm, R79.89 - Other specified abnormal findings of blood chemistry Free T4 (Free Thyroxine) Today E05.90 - Thyrotoxicosis, unspecified without thyrotoxic crisis or storm, R79.89 - Other specified abnormal findings of blood chemistry Triiodothyronine T3 Total Today E05.90 - Thyrotoxicosis, unspecified without thyrotoxic crisis or storm, R79.89 - Other specified abnormal findings of blood chemistry Thyrotropin Receptor Antibody Today E05.90 - Thyrotoxicosis, unspecified without thyrotoxic crisis or storm, R79.89 - Other specified abnormal findings of blood chemistry US thyroid Today E05.90 - Thyrotoxicosis, unspecified without thyrotoxic crisis or storm, R79.89 - Other specified abnormal findings of blood chemistry Thyroid Stimulating Immunoglob Today E05.90 - Thyrotoxicosis, unspecified without thyrotoxic crisis or storm Patient Instructions: Do blood work Do ultrasound of the thyroid , someone will call you to schedule this Please make sure this is done prior to your next follow up with me Follow up to discuss results An?lisis de alysia. Ecograf?a de tiroides. Se le llamar? para programarla. Por favor, aseg?rese de realizarla antes de dobbins pr?xima juan m de seguimiento conmigo. Vuelva a consultar los resultados. Coding Level of Care Code New Pt Level 4 (81307) Diagnoses Low TSH level R79.89 Subclinical hyperthyroidism E05.90 Time Spent (min) 45
--- OUTSIDE RECORDS SUMMARY | 2025-02-13 12:44 | XMS_ITS | Encounter Summary ---
Author Organization [employer] [facility] Address [address] [place] [address] [address] [place] [address] Care Team Providers Care Rubber Calender Helper Name Role Phone Unavailable Primary Care Provider [...]
== END 2025-02-13 13:02 | disposition home or self-care (01) ==
LOC: HO.ENCR 12:11
PROVIDERS: PCP Internal Medicine; Visit Provider Student in an Organized Health Care Education/Training Program
DX: R79.89 Other specified abnormal findings of blood chemistry (principal); E05.90 Thyrotoxicosis, unspecified without thyrotoxic crisis or storm
CPT/HCPCS: 99204

== ENCOUNTER 2025-02-13 12:10 | Outpatient (REF) | payer MEDICARE, MEDICAID, SELFPAY ==
[2025-02-13 14:24] LABS: Free T4 (Free Thyroxine) 1.15 ng/dL (0.71-1.85); Thyroid Stimulating Hormone 0.17 uIU/mL (0.32-4.0)
== END 2025-02-13 12:11 | disposition home or self-care (01) ==
LOC: HO.LAB 12:10
PROVIDERS: PCP Internal Medicine; Visit Provider Student in an Organized Health Care Education/Training Program
DX: E05.90 Thyrotoxicosis, unspecified without thyrotoxic crisis or storm (principal); R79.89 Other specified abnormal findings of blood chemistry; Z79.1 Long term (current) use of non-steroidal anti-inflammatories (NSAID); Z79.899 Other long term (current) drug therapy
CPT/HCPCS: 36415; 83520; 84439; 84443; 84445; 84480; 99202

== ENCOUNTER 2025-02-14 13:35 | Outpatient (AMB) | payer MEDICARE, MEDICAID, SELFPAY ==
--- NOTE | 2025-02-14 13:36 | A.OFFVIS_ITS ---
Vital Signs 02/14/25 13:37 Height 5 ft 11 in Weight 205 lb BMI 28.6 BP 122/64 Blood Pressure Location Rt brachial Position Sitting Pulse 75 Pulse Source Pulse Oximeter Pulse Oximetry (%) 95 Oxygen Delivery Method Room Air Intake Visit Reasons: Asthma Allergies shellfish derived Allergy (Severe, Verified 02/14/25 13:41) Anaphylaxis HPI HPI Asthma: Details: 64-year-old gentleman now followed for bronchiectasis, reactive airway disease, and mediastinal lymphadenopathy. He continues on Breo, Incruse, duo nebs, and albuterol MDI with reasonable baseline control of his symptoms. Today complains of bronchitic exacerbation of his underlying bronchiectasis symptomatic with cou gh productive of yellowish sputum. [facility] Medical History (Updated 02/13/25 @ 12:57 by Guadalupe Ennis MD) Subclinical hyperthyroidism Sleep apnea Asthma GERD (gastroesophageal reflux disease) Tubular adenoma Abdominal pain Screening for prostate cancer Depression Fatigue Epidermal inclusion cyst Surgical History History of bunionectomy History of excision of epidermal inclusion cyst (~04/09/20) History of colonoscopy (~05/2011) History of esophagogastroduodenoscopy (EGD) (~05/2011) History of left knee surgery (~04/2016) History of hernia repair (~1990) History of removal of cyst (~04/2019) Family History Father History of hypertension History of heart disease History of diabetes mellitus Mother History of skin cancer Sister History of arthritis History of colon cancer History of breast cancer Mental health disorder Son No problems noted. Daughter No problems noted. Social History Housing: Apartment Alcohol intake: never Patient Tobacco Use Status: Former Tobacco user Tobacco use type: Cigarette e-Cigarette/Vaping Use: Never Used Second Hand Smoke Exposure: Yes service: No Current occupational status: unemployed and disabled Current occupation: left hand Cognitive needs: Yes Hearing needs: No Vision needs: No Review of Systems Const Denies daytime sleepiness, Denies excessive sweating, Denies fatigue, Denies fever(s), Denies lethargy, Denies malaise, Denies night sweats, Denies snoring and Denies weight loss Eyes Denies blurry vision and Denies itchy eyes ENT Denies nasal congestion, Denies post nasal drip, Denies sinus pain, Denies sinus pressure and Denies other ( Thrush) Card Denies chest pain, Denies pedal edema, Denies dyspnea, Denies orthopnea and Denies paroxysmal nocturnal dyspnea Resp Reports cough, Denies hemoptysis, Reports excessive phlegm production, Denies dyspnea, Denies snoring and Denies wheezing GI Denies abdominal pain and Denies heartburn Musc Denies myalgias, Denies arthralgias and Denies joint swelling Skin/Breast Denies rash Neuro Denies memory loss and Denies seizure-like activity Psych Denies abnormal sleep pattern, Denies anxiety and Denies memory loss Endo Denies excessive sweating, Denies fatigue and Denies heat intolerance Brent/Lymph Denies easy bruising Aller/Immun Denies itchy eyes, Denies seasonal rhinorrhea and Denies wheezing Physical Exam Vital Signs: Last Vital Signs Pulse 75 02/14/25 13:37 BP 122/64 02/14/25 13:37 Pulse Ox 95 02/14/25 13:37 Oxygen Delivery Method Room Air 02/14/25 13:37 BMI result Body Mass Index 28.6 Const General: no acute distress and alert Nutritional Appearance: not obese Orientation/consciousness: Other orientation findings ( oriented) HEENT Head: Yes atraumatic Eyes General: appearance normal, both eyes and all related structures Sclerae: sclerae normal EOM: EOMs intact bilaterally Neck Neck: Yes supple Lymphatic: no lymphadenopathy noted Resp Effort & Inspection: normal respiratory effort and no use of accessory muscles Auscultation: clear to auscultation bilaterally Cardio Rate: regular rate Rhythm: regular rhythm Heart sounds: no gallops, no murmurs and no rubs Skin General skin exam: other ( warm) Extrem General: No clubbing, No cyanosis and No edema Assessment & Plan Assessment & Plan (1) Bronchiectasis: Code(s): J47.9 - Bronchiectasis, uncomplicated Category: Medical Plan: Now with an acute exacerbation, will treat with a Levaquin and prednisone. (2) Asthma: Code(s): J45.909 - Unspecified asthma, uncomplicated Category: Medical Plan: Baseline well controlled regimen of, Incruse, duo nebs, and albuterol MDI. Continue current regimen. (3) Mediastinal lymphadenopathy: Code(s): R59.0 - Localized enlarged lymph nodes Category: Medical Plan: Follow-up CT chest is pending for February of 2025. Orders: Orders CT chest wo IV con 03/07/25 J47.9 - Bronchiectasis, uncomplicated Medications: New levofloxacin 750 mg PO DAILY 7 tabs 0RF prednisone 40 mg (2 x 20 mg) PO DAILY 14 tabs 0RF Coding Level of Care Code Est Pt Level 4 (55782) Complex EM visit Add On G2211 Diagnoses Bronchiectasis J47.9 Asthma J45.909 Mediastinal lymphadenopathy R59.0
[2025-02-14 13:37] VITALS: BP 122/64; PULSE 75; O2SAT 95; BMI 28.6
== END 2025-02-14 13:50 | disposition home or self-care (01) ==
LOC: HO.HPS 13:36
PROVIDERS: PCP Internal Medicine; Visit Provider Internal Medicine Pulmonary Disease
DX: J47.9 Bronchiectasis, uncomplicated (principal); J45.909 Unspecified asthma, uncomplicated; R59.0 Localized enlarged lymph nodes
CPT/HCPCS: 99214; G2211

== ENCOUNTER → 2025-02-14 13:35 | Outpatient (BNVA) | payer MEDICARE, MEDICAID, SELFPAY | PROVIDERS: PCP Internal Medicine; Visit Provider Internal Medicine Pulmonary Disease | DX: J47.1 Bronchiectasis with (acute) exacerbation (principal); J45.909 Unspecified asthma, uncomplicated; R59.0 Localized enlarged lymph nodes; Z79.2 Long term (current) use of antibiotics; Z87.891 Personal history of nicotine dependence | CPT/HCPCS: 99212 ==

== ENCOUNTER 2025-03-21 15:31 | Outpatient (REF) | payer MEDICARE, MEDICAID, SELFPAY ==
--- NOTE | ~2025-03-21 | CT_ITS ---
EXAMINATION: CT CHEST WITHOUT CONTRAST CLINICAL INFORMATION: J47.9 - Bronchiectasis, uncomplicated COMPARISON: March 22, 2024 TECHNIQUE: Multidetector volumetric CT imaging of the chest was done. Axial MIP volume rendering provided. Sagittal and coronal reformatted images were obtained. This CT examination was performed using dose optimization techniques as appropriate, variously including the following: *Automated exposure control *Adjustment of mA and/or kV according to patient size (this includes techniques or standardized protocols for targeted exams where dose is matched to indication/reason for exam; i.e. extremities or head) *Use of iterative reconstruction technique DLP: 170 mGY*cm FINDINGS: LUNGS: Again noted is mild bronchiectasis and peribronchial thickening more pronounced in the lung bases. There are reticular and nodular densities that are most pronounced in the lung bases. No new nodular densities are identified. MEDIASTINUM: The mediastinum is normal. CORONARY ARTERY CALCIFICATION: Present PLEURA: There is no pleural effusion. No pleural mass or thickening. AXILLA: No lymphadenopathy. UPPER ABDOMEN: Exophytic simple renal cyst is noted in the superior pole right kidney. Simple cyst in the left kidney is only demonstrated on a single image that was visualized previously. OSSEOUS STRUCTURES: Unremarkable. CT/CT chest wo IV con IMPRESSION: Stable bronchiectasis, peribronchial thickening, and nodular and reticular densities that are more pronounced in the lung bases possibly representing UIP. Electronically signed by: Angus Treadwell MD 03/21/2025 04:04 PM EDT
--- OUTSIDE RECORDS SUMMARY | 2025-03-21 15:34 | XMS_ITS | Encounter Summary ---
Author Organization [employer] [facility] Address [address] [place] [address] [address] [place] [address] Care Team Providers Care Business Integration Analyst Name Role Phone Unavailable Primary Care [...]
--- OUTSIDE RECORDS SUMMARY | 2025-03-21 15:34 | XMS_ITS | Clinical Summary ---
Author Organization [employer] [facility] Address [address] [place] [address] [address] [place] [address] Care Team Providers Care Integrated Marketing Intern Name Role Phone Unavailable Primary Care Provider [...] Panel 1961 SDOH Screening 1961 Sigmoidoscopy 1961 Disability Screening 1961 Alcohol/Substance Use Screening 1973 Hepatitis C [...] 2024 05/25/2022, 06/29/2021, 11/03/2020, Additional history exists Tobacco Screening 08/02/2024 08/02/2023 Influenza Vaccine (#1) 2025 3, 05/25/2022, 05/19/2021, Additional history exists DTaP/Tdap/Td Vaccines (2 - Td or Tdap) 12/10/2028 12/10/2018 Zoster Vaccines Completed 06/21/2023, 04/17/2023 RSV Patients and Patients Aged 60 years or older Completed 07/27/2023 HIB Vaccines Aged Out No longer eligi [...] patient's age to complete this topic Meningococcal B Vaccine Aged Out No l onger eligible based on patient's age to complete [...]
== END 2025-03-21 15:32 | disposition home or self-care (01) ==
LOC: HO.CT 15:31
PROVIDERS: Visit Provider Internal Medicine Pulmonary Disease
DX: J47.9 Bronchiectasis, uncomplicated (principal)
CPT/HCPCS: 71250

== ENCOUNTER → 2025-03-21 15:36 | Outpatient (BNV) | payer MEDICARE, MEDICAID, SELFPAY | PROVIDERS: Visit Provider Radiology Diagnostic Radiology | DX: J47.9 Bronchiectasis, uncomplicated (principal) | CPT/HCPCS: 71250 ==

== ENCOUNTER 2025-04-09 15:42 | Outpatient (REF) | payer MEDICARE, MEDICAID, SELFPAY ==
--- OUTSIDE RECORDS SUMMARY | 2025-04-07 08:30 | XMS_ITS | Encounter Summary ---
Author Organization [employer] [facility] Address [address] [place] [address] 7t [place] [address] Care Team Providers Care Nutrition Director Name Role Phone Unavailable Primary Care Provider Unavailabl e Reason for Visit * Reason Comments Dentures Broken Lower partial , panorex taken Encounter Details Date Type Department Care Team (Late st Contact Info) Description 04/07/2025 8:30 AM EDT Office Visit [facility] ADULT DENTAL [address] [place] [address] Kosta Marley DDS [address] [place] [address] Ill-fitting dentures (Primary Dx); Edentulous maxilla Social [...] Marley DDS Billing provider: Kosta Marley DDS [id number] - PANORAMIC RADIOGRAPHIC IMAGE [...] 08 (broken lower partial, panorex taken) Location: [facility] Tooth: Maxilla and Mandible Procedure: Exam, X-rays, and Dentures Verified the above with patient, health care assistant, and provider. Confirmed via patient's chart, intraorally and by radiographs. [facility]one Treater: not applicable Chief Complaint Patient presents with [...] Cancer Risk: Low Risk Oral Hygiene Instructions: Mclean two times daily, modified randall technique, Floss daily, Electric toothbrush, Soft bristle toothbrush, Mclean Tongue Caries Risk Assessment: Medium- one risk factor Assessment/Plan SANDRA X rays Repair maria ines. RPD Amado doesn't want to proceeded with extractions for now, decided to keep asymptomatic teeth, repair fractured RPD / mid line clean cut / sent to [facility]. To repair Patient tolerated procedure well, all questions answered and expressed understanding. Dismissed in good condition. NV: Delivery repair Dairy Specialist: Kiya Orona Dentist: Kosta Marley DDS [1] [...]
--- OUTSIDE RECORDS SUMMARY | 2025-04-08 08:00 | XMS_ITS | Encounter Summary ---
Author Organization [facility] Address [address] [place] [address] 7 [place] [address] Care Team Providers Care Residence Leasing Agent Name Role Phone Unavailable Primary Care Provider Unavailabl e Reason for Visit * Reason Comments Dentures Delivery of a repair partail Encounter Details Date Type Department Care Team (Late st Contact Info) Description 04/08/2025 8:00 AM EDT Office Visit [facility] ADULT DENTAL [address] [place] [address] Kosta Marley DDS [address] [place], [place] [phone] Ill-fitting dentures (Primary Dx) Social History Tobacco Use Types Packs/Day Years [...] Sign Reading Time Taken Comments Blood Pressure 126/72 04/08/2025 8:04 AM EDT Pulse 66 04/08/2025 8:04 AM EDT Temperature - - Respiratory Rate - - Oxygen Saturation - - Inhaled Oxygen Concentration - - Weight - - Height - - Body Mass Index - - documented in this encounter Progress Notes * Kosta Marley DDS - 04/08/2025 8:00 AM EDT Patient ID: Amado Stover is a 64 y.o. male. Time Out: No data recorded Location: [facility] Tooth: Mandible Procedure: Dentures Repair Verified the above with patient, assistant dean of students, and provider. Confirmed via patient's chart, intraorally and by radiographs. Operations Processor: not applicable No chief complaint on file. Medical Hx: Vitals: There were no vitals taken for this visit. Medications, Med Hx reviewed with patient and updated in chart. Consent Obtained: The risks, benefits, indications, potential complications, and alternatives were explained to the patient and informed consent was obtained with good understanding. Treatment Provided: Dental procedures in this visit [id number] - REPAIR RESIN PARTIAL DENTURE BASE, ASHLEY (Completed) Service provider: Kosta Marley DDS Billing provider: Kosta Marley DDS [id number] - CASE PRESENTATION, DETAILED AND EXTENSIVE TREATMENT PLANNING (Completed) Service provider: Kosta Marley DDS Billing provider: Kosta Marley DDS Tried in denture(s) -Evaluated for comfort, fit, phonetics, and stability (f, v, s, th sounds; swallow, yawn, etc) -Evaluated for satisfactory esthetics. -Occlusion verified; adjustments made as necessary. Patient has received information sheet for denture care and expectations. Pt was provided with denture case and denture brush. NV: Adj. As needed / 6 mos recall Dry Cleaning Machine Operator: Kiya Orona Dentist: Kosta Marley DDS documented in this encounter Plan of Treatment Not on file documented as of this encounter Procedures Procedure Name Priority Date/Time Associated Diagnosis Comments REPAIR RESIN PARTIAL DENTURE BASE, ASHLEY Routine 04/08/2025 8:00 AM EDT CASE PRESENTATION, DETAILED AND EXTENSIVE TREATMENT PLANNING Routine 04/08/2025 8:00 AM EDT documented in this encounter Visit Diagnoses Diagnosis Ill-fitting dentures- Primary documented in this encounter
--- NOTE | ~2025-04-09 | US_ITS ---
EXAMINATION: US THYROID CLINICAL INFORMATION: Abnormal findings of blood chemistry. COMPARISON: None available. TECHNIQUE: Linear transducer grayscale and color Doppler examination with attention to the region of the thyroid. FINDINGS: SIZE: Measurements of the thyroid lobes and nodules are given in sagittal, anteroposterior and transverse dimensions respectively. Right Thyroid Lobe: 6.7 x 2.4 x 2.7 cm, volume 23 mL. Parenchyma: The gland echotexture is homogeneous. Thyroid vascularity is normal. Left Thyroid Lobe: 5.5 x 2.6 x 2.2 cm, volume 16.1 mL. Parenchyma: The gland echotexture is homogeneous. Thyroid vascularity is normal. Isthmus: 1.3 cm in maximum AP dimension. Estimated total number of nodules greater than or equal to 1 cm: 0. Stud Dairy Cattle Farmer nodules are described as follows: 1. Location: Left upper pole. Size: 0.4 x 0.2 x 0.3 cm, volume 0.014 mL. Nodule characteristics: Composition: Solid (2). Echogenicity: Hyperechoic (1). Shape: Wider Margins: Smooth (0). Echogenic Foci: None (0). ACR TI-RADS total points: 4 ACR TI-RADS category: 4 NODES: No lymphadenopathy is seen in the tissue surrounding the thyroid gland. US/US thyroid IMPRESSION: Bilateral thyroid gland enlargement suggestive of goiter. There is a solitary nodule in left upper pole left lobe, nonsuspicious. ACR TI-RADS RECOMMENDATION REFERENCE: Ultrasound-guided fine-needle aspiration, followup ultrasound, no further follow up. * TR1 (0 point) and TR2 (2 points): No FNA or follow up. * TR3 (3 points): FNA if more than or equal to 2.5 cm in maximum dimension, followup ultrasound in 1, 3 and 5 years if 1.5 to 2.4 cm in maximum dimension. * TR4 (4-6 points): FNA if more than or equal to 1.5 cm in maximum dimension, followup ultrasound in 1, 2, 3 and 5 years if 1 to 1.4 cm in maximum dimension. * TR5 (more than or equal to 7 points): FNA if more than or equal to 1 cm in maximum dimension, followup ultrasound every year for 5 years if 0.5 to 0.9 cm in maximum dimension. * TR3, TR4 or TR5 nodules that are below the size threshold for followup receive no follow up. Electronically signed by: Vasile Singer MD 04/10/2025 04:08 PM EDT
--- OUTSIDE RECORDS SUMMARY | 2025-04-09 19:03 | XMS_ITS | Clinical Summary ---
Author Organization [employer] [facility] Address [address] [place] [address] 7t [place] [address] Care Team Providers Care Presiding Steward Name Role Phone Unavailable Primary Care Provider Unavailabl e Allergies No known active allergies Medications No known medications Active Problems Problem Noted Date Diagnosed Date Edentulous maxilla 04/07/2025 Ill-fitting dentures 08/02/2023 Encounters Date Type Department Care Team Description 04/08/2025 8:00 AM EDT Office Visit [facility] ADULT DENTAL [address] [place] [address] Kosta Marley DDS Ill-fitting dentures (Primary Dx) 04/07/2025 8:30 AM EDT Office Visit [facility] ADULT DENTAL [address] [place] [address] Kosta Marley DDS Ill-fitting dentures (Primary Dx); Edentulous maxilla from Last 3 Months Social History Tobacco [...] Orientation Straight 05/23/2022 10 :20 AM EDT Last Filed Vital Signs Vital Sign Reading Time Taken Comments Blood Pressure 126/72 04/08/2025 8:04 AM EDT Pulse 66 04/08/2025 8:04 AM EDT Temperature - - Respiratory Rate - - Oxygen Saturation - - Inhaled Oxygen Concentration - - Weight - - Height - - Body Mass Index - - Plan of Treatment Health Maintenance Due Date [...] 15, 10/01/2014, 10/30/2013, Additional history exists Dental Prophylaxis 03/04/2020 09/03/2019, 0 03/01/2019, 06/07/2018, Additional history exists COVID-19 Vaccine ( season) 2025 05/25/2022, 06/29/2021, 11/03/2020, Additional history exists Influenza Vaccine (#1) 2025 , 04/17/2023, 05/25/2022, Additional history exists Dental Oral Exam 10/06/2025 04/07/2025, 05/2020, 03/01/2019, Additional history exists Tobacco Screening 04/08/2026 04/08/2025 Dental X-Ray: Full Mouth 04/08/2028 025, 10/01/2014, 10/30/2013, Additional history exists DTaP/Tdap/Td Vaccines (2 - [...] Procedure Name Priority Date/Time Associated Diagnosis Comments CASE PRESENTATION, DETAILED AND EXTENSIVE TREATMENT PLANNING Routine 04/08/2025 8:00 AM EDT REPAIR RESIN PARTIAL DENTURE BASE, ASHLEY Routine 04/08/2025 8:00 AM EDT CASE PRESENTATION, DETAILED AND EXTENSIVE TREATMENT PLANNING Routine 04/07/2025 8:30 AM EDT INTRAORAL - PERIAPICAL EACH ADDITIONAL RADIOGRAPHIC IMAGE Routine 04/07/2025 8:30 AM EDT INTRAORAL - PERIAPICAL EACH ADDITIONAL RADIOGRAPHIC IMAGE Routine 04/07/2025 8:30 AM EDT INTRAORAL - PERIAPICAL FIRST RADIOGRAPHIC IMAGE Routine 04/07/2025 8:30 AM EDT PANORAMIC RADIOGRAPHIC IMAGE Routine 04/07/2025 8:30 AM EDT PERIODIC ORAL EVALUATION - ESTABLISHED PATIENT Routine 04/07/2025 8:30 AM EDT PROPHYLAXIS - ADULT Routine 09/03/2019 1 2:00 AM EST BITEWINGS - 2 RADIOGRAPHIC IMAGES Routine 12/26/2014 12:00 AM EDT from Last 3 Months or Most Recently Relevant to Health Maintenance Insurance [facility] MEDICAID STAND ADULT
--- OUTSIDE RECORDS SUMMARY | 2025-04-09 19:03 | XMS_ITS | Encounter Summary ---
Author Organization [employer] [facility] Address [address] [facility] [address]t h Floor [place] [id number] Care Team Providers Care C.O.D. Audit Clerk Name Role Phone Unavailable Primary Care [...]
== END 2025-04-09 15:43 | disposition home or self-care (01) ==
LOC: HO.US 15:42
PROVIDERS: Visit Provider Student in an Organized Health Care Education/Training Program
DX: E05.90 Thyrotoxicosis, unspecified without thyrotoxic crisis or storm (principal); R79.89 Other specified abnormal findings of blood chemistry
CPT/HCPCS: 76536

== ENCOUNTER → 2025-04-09 15:47 | Outpatient (BNV) | payer MEDICARE, MEDICAID, SELFPAY | PROVIDERS: Visit Provider Radiology Diagnostic Radiology | DX: E04.1 Nontoxic single thyroid nodule (principal); E04.9 Nontoxic goiter, unspecified | CPT/HCPCS: 76536 ==

== ENCOUNTER 2025-04-11 06:58 | Outpatient (REF) | payer MEDICARE, MEDICAID, SELFPAY ==
--- OUTSIDE RECORDS SUMMARY | 2025-04-07 08:30 | XMS_ITS | Encounter Summary ---
Author Organization [employer] [facility] Address [address] [place] [address] [address] [place] [address] Care Team Providers Care Spot Checker Name Role Phone Unavailable Primary Care Provider Unavailabl e Reason for Visit * Reason Comments Dentures Broken Lower partial , panorex taken Encounter Details Date Type Department Care Team (Late st Contact Info) Description 04/07/2025 8:30 AM EDT Office Visit [facility] [address] [place] [address] Kosta Marley DDS [address] [place] [address] Ill-fitting dentures (Primary Dx); Edentulous maxilla Social History Tobacco Use Types Packs/Day Years [...] AM EDT documented as of this encounter Last Filed Vital Signs Vital Sign Reading Time Taken Comments Blood Pressure 128/76 04/07/2025 8:21 AM EDT Pulse 70 04/07/2025 8:21 AM EDT Temperature - - Respiratory Rate - - Oxygen Saturation - - Inhaled Oxygen Concentration - - Weight - - Height - - Body Mass Index - - documented in this encounter Progress Notes * Kosta Marley DDS - 04/07/2025 8:30 AM EDT Dental procedures in this visit [id number] - PERIODIC ORAL EVALUATION - ESTABLISHED PATIENT (Completed) Service provider: Kosta Marley DDS Billing provider: Ksota Marley DDS [id number] - PANORAMIC RADIOGRAPHIC IMAGE (Completed) Service provider: Kosta Marley DDS Billing provider: Kosta Marley DDS [id number] - INTRAORAL - PERIAPICAL FIRST RADIOGRAPHIC IMAGE (Completed) Service provider: Kosta Marley DDS Billing provider: Kosta Marley DDS [id number] - INTRAORAL - PERIAPICAL EACH ADDITIONAL RADIOGRAPHIC IMAGE (Completed) Service provider: Kosta Marley DDS Billing provider: Kosta Marley DDS [id number] - INTRAORAL - PERIAPICAL EACH ADDITIONAL RADIOGRAPHIC IMAGE (Completed) Service provider: Kosta Marley DDS Billing provider: Kosta Marley DDS [id number] - CASE PRESENTATION, DETAILED AND EXTENSIVE TREATMENT PLANNING (Completed) Service provider: Kosta Marley DDS Billing provider: Kosta Marley DDS Patient ID: Amado Stover is a 64 y.o. male. Time Out: Timeout Date: 04/07/25, Timeout Time: 08 (broken lower partial, panorex taken) Location: [facility] Tooth: Maxilla and Mandible Procedure: Exam, X-rays, and Dentures Verified the above with patient, hearing aid assistant, and provider. Confirmed via patient's chart, intraorally and by radiographs. Senior Net Web Developer: not applicable Chief Complaint Patient presents with Dentures Broken Lower partial, panorex taken Medical Hx: Vitals: Blood pressure 128/76, pulse 70. Medical History[1] Medications: Encounter Medications[2] Objective HPI Asymptomatic Head and Neck Exam: Lymph Nodes, Lips, Palate, Buccal Mucosa, Floor of Mouth, Tongue, Tonsils, Alveolar Ridges, Oropharynx, Salivary Ducts, and Vestibules normal appearance Details: Skin NSF OCS: negative Dental Exam As charted Edentulous maxillae T#22 -27 carious lesions under cervical Bone loss 50% + Mobility on centrals Partial edentulous maxilla Indicate extraction of max remnant teeth Reference tooth chart for additional findings. Oral Cancer Risk: Low Risk Oral Hygiene Instructions: Shohola two times daily, modified randall technique, Floss daily, Electric toothbrush, Soft bristle toothbrush, Shohola Tongue Caries Risk Assessment: Medium- one risk factor Assessment/Plan SANDRA X rays Repair maria ines. RPD Amado doesn't want to proceeded with extractions for now, decided to keep asymptomatic teeth, repair fractured RPD / mid line clean cut / sent to [facility]. To repair Patient tolerated procedure well, all questions answered and expressed understanding. Dismissed in good condition. NV: Delivery repair Privacy Compliance Manager: Kiya Orona Dentist: Kosta Marley DDS [1] Past Medical History: Diagnosis Date Known health problems: none [2] No outpatient encounter medications on file as of 04/07/2025. No facility-administered encounter medications on file as of 04/07/2025. documented in this encounter Plan of Treatment Not on file documented as of this encounter Procedures Procedure Name Priority Date/Time Associated Diagnosis Comments PERIODIC ORAL EVALUATION - ESTABLISHED PATIENT Routine 04/07/2025 8:30 AM EDT PANORAMIC RADIOGRAPHIC IMAGE Routine 04/07/2025 8:30 AM EDT INTRAORAL - PERIAPICAL FIRST RADIOGRAPHIC IMAGE Routine 04/07/2025 8:30 AM EDT INTRAORAL - PERIAPICAL EACH ADDITIONAL RADIOGRAPHIC IMAGE Routine 04/07/2025 8:30 AM EDT INTRAORAL - PERIAPICAL EACH ADDITIONAL RADIOGRAPHIC IMAGE Routine 04/07/2025 8:30 AM EDT CASE PRESENTATION, DETAILED AND EXTENSIVE TREATMENT PLANNING Routine 04/07/2025 8:30 AM EDT documented in this encounter Visit Diagnoses Diagnosis Ill-fitting dentures- Primary Edentulous maxilla documented in this encounter
--- OUTSIDE RECORDS SUMMARY | 2025-04-08 08:00 | XMS_ITS | Encounter Summary ---
Author Organization [facility] [facility] Address [address] [place] [address] [address] [place] [address] Care Team Providers Care Manufacturing Job Titles Name Role Phone Unavailable Primary Care Provider Unavailabl e Reason for Visit * Reason Comments Dentures Delivery of a repair partail Encounter Details Date Type Department Care Team (Late st Contact Info) Description 04/08/2025 8:00 AM EDT Office Visit [facility] ADULT DENTAL [address] [place] [address] Kosta Marley DDS [address] [place], [place] [phone] Ill-fitting dentures (Primary Dx) Social History Tobacco [...] male. Time Out: No data recorded Location: [facility] Tooth: Mandible Procedure: Dentures Repair Verified the above with patient, business support assistant, and provider. Confirmed via patient's chart, intraorally and by radiographs. Application Integration Architect: not applicable No chief complaint on file. [...] Adj. As needed / 6 mos recall Corporate Services Manager: Kiya Orona Dentist: Kosta Marley DDS documented [...]
--- NOTE | ~2025-04-11 | XR_ITS ---
EXAMINATION: XR ELBOW 3 VIEWS RIGHT HISTORY: M25.521 - Pain in right elbow COMPARISON: There are no prior studies available for comparison. FINDINGS: Three views of the right elbow are submitted. Osseous mineralization is normal. There is no fracture or dislocation. The joint spaces are preserved. The soft tissues are unremarkable. There is no joint effusion. XR/XR elbow RT min 3V IMPRESSION: Unremarkable examination of the right elbow. Electronically signed by: Red Moreno MD 04/11/2025 07:23 AM EDT
--- OUTSIDE RECORDS SUMMARY | 2025-04-11 07:01 | XMS_ITS | Encounter Summary ---
Author Organization [employer] [facility] Address [address] [facility] 7t h Floor [place] [id number] Care Team Providers Care Gang Drill Press Operator Name Role Phone Unavailable Primary Care [...]
--- OUTSIDE RECORDS SUMMARY | 2025-04-11 07:01 | XMS_ITS | Clinical Summary ---
Author Organization [employer] [facility] Address [address] [place] [address] 7t [place] [address] Care Team Providers Care Drapery Sewer Hand Name Role Phone Unavailable Primary Care Provider Unavailabl e Allergies No known active allergies Medications No known medications Active Problems Problem Noted Date Diagnosed Date Edentulous maxilla 04/07/2025 Ill-fitting dentures 08/02/2023 Encounters Date Type Department Care Team Description 04/08/2025 8:00 AM EDT Office Visit [facility] ADULT DENTAL [address] [place] [address] Kosta Marley DDS Ill-fitting dentures (Primary Dx) 04/07/2025 8:30 AM EDT Office Visit [facility] ADULT DENTAL [address] [place] [address] Kosta Marley DDS Ill-fitting dentures (Primary Dx); [...] Most Recently Relevant to Health Maintenance Insurance [facility] MEDICAID STAND ADULT
== END 2025-04-11 06:59 | disposition home or self-care (01) ==
LOC: HO.XRAY 06:58
PROVIDERS: PCP Internal Medicine; Visit Provider Internal Medicine
DX: M25.521 Pain in right elbow (principal)
CPT/HCPCS: 73080

== ENCOUNTER → 2025-04-11 07:04 | Outpatient (BNV) | payer MEDICARE, MEDICAID, SELFPAY | PROVIDERS: PCP Internal Medicine; Visit Provider Radiology Diagnostic Radiology | DX: M25.521 Pain in right elbow (principal) | CPT/HCPCS: 73080 ==

== ENCOUNTER 2025-04-14 12:33 | Outpatient (AMB) | payer MEDICARE, MEDICAID, SELFPAY ==
--- NOTE | 2025-04-14 12:52 | MHC.OFFVIS ---
Vital Signs 04/14/25 12:59 Height 5 ft 11 in Weight 202 lb BMI 28.2 BP 112/68 Blood Pressure Location Rt brachial Position Sitting Pulse 54 Pulse Source Pulse Oximeter Pulse Oximetry (%) 95 Oxygen Delivery Method Room Air Intake Visit Reasons: 4 mo f/u Intake Note: Est pt for mgmt of constipation w/ abd pain. CC: C.O. intermittent persistence of chronic sx despite current therapies. Allergies shellfish derived Allergy (Severe, Verified 05/07/25 13:38) Anaphylaxis HPI HPI 4 mo f/u: Details: LAST VISIT: GERD (gastroesophageal reflux disease) Constipation Postprandial abdominal bloating Plan Increase fluid intake and activity to from her bowel motility. Start Colace. Patient was also encouraged to increase fiber in his diet his continue taking omeprazole twice a day. Avoid dietary triggers and late night snacking. Staying upright for minimum 3 hours after meals discussed with patient. Patient will return in March so we can discuss and book colonoscopy for him as well as upper endoscopy. Patient is agreeable to this plan and verbalizes understanding of instructions was given the opportunity of stones removed questions answered. ? Thank you for allowing me to participate in his care New docusate sodium 100 mg PO BEDTIME 90 caps 3RF K59.00 TODAY'S VISIT Patient is here today for follow-up and to discuss upper endoscopy and colonoscopy. Patient is due to go for colonoscopy. Last colonoscopy in May of 2022 had suboptimal prep, 1 tubular adenoma found. Patient continues to be constipated. Currently he is taking stool softeners without any relief. Patient denies melena, hematochezia, unintentional weight loss or ribbon like stools. Patient reports acid reflux controlled. Patient is taking omeprazole 20 mg twice a day. Denies any dyspepsia, dysphagia or odynophagia. Denies any abdominal pain or discomfort. Patient denies any nausea or vomiting. No issues with anesthesia in the past. No history of sleep apnea. Patient denies any cardiac or respiratory symptoms. Not on any anticoagulation medication. [facility] Medical History Subclinical hyperthyroidism Sleep apnea Asthma GERD (gastroesophageal reflux disease) Tubular adenoma Abdominal pain Screening for prostate cancer Depression Fatigue Epidermal inclusion cyst Surgical History History of bunionectomy History of excision of epidermal inclusion cyst (~04/09/20) History of colonoscopy (~05/2011) History of esophagogastroduodenoscopy (EGD) (~05/2011) History of left knee surgery (~04/2016) History of hernia repair (~1990) History of removal of cyst (~04/2019) Family History Father History of hypertension History of heart disease History of diabetes mellitus Mother History of skin cancer Sister History of arthritis History of colon cancer History of breast cancer Mental health disorder Son No problems noted. Daughter No problems noted. Social History Housing: Apartment Alcohol intake: never Patient Tobacco Use Status: Former Tobacco user Tobacco use type: Cigarette e-Cigarette/Vaping Use: Never Used Second Hand Smoke Exposure: Yes service: No Current occupational status: unemployed and disabled Current occupation: left hand Cognitive needs: Yes Hearing needs: No Vision needs: No Review of Systems Const Denies weight gain and Denies weight loss ENT Reports no additional complaints, Denies dysphagia and Denies odynophagia Card Reports no additional complaints Resp Reports no additional complaints GI Denies abdominal pain, Denies belching, Denies melena, Denies bloating, Denies change in bowel habits, Reports constipation, Denies dysphagia, Denies excessive flatus, Denies dyspepsia, Reports heartburn, Denies diarrhea, Denies loose stools, Denies nausea, Denies odynophagia and Denies vomiting Reports no additional complaints Musc Reports no additional complaints Neuro Reports no additional complaints Psych Reports no additional complaints Endo Reports no additional complaints Physical Exam Vital Signs: Last Vital Signs Pulse 54 04/14/25 12:59 BP 112/68 04/14/25 12:59 Pulse Ox 95 04/14/25 12:59 Oxygen Delivery Method Room Air 04/14/25 12:59 BMI result Body Mass Index 28.2 Const General: cooperative, healthy appearing, comfortable, no acute distress, well developed, alert and awake Nutritional Appearance: average body habitus Orientation/consciousness: patient oriented x3 Limitations: no limitations HEENT Head: Yes normal to inspection, Yes normocephalic and Yes atraumatic Ears: hearing grossly normal bilaterally Eyes General: appearance normal, both eyes and all related structures Neck Neck: Yes normal visual inspection and Yes trachea midline Chest Chest palpation & inspection: normal inspection of the chest Resp Effort & Inspection: normal respiratory effort and able to speak in complete sentences Cardio Rate: regular rate GI Inspection: Yes normal to inspection General: Yes no CVA tenderness Back/Spine/Pelvis Back: no CVA tenderness Skin General skin exam: no rashes or lesions noted Neuro General: patient oriented x3 Extrem General: Yes normal to inspection Psych Appearance: grossly normal and well kempt Mental Status: mental status grossly normal Speech and movement: Normal speech and movement present and Clear speech present Affect: normal affect Attitude: cooperative Thought process: Normal thought process present Thought content: Normal thought content present Insight: Fair insight present (Psych) Judgement: Fair judgement present (Psych) Assessment & Plan Assessment & Plan (1) GERD (gastroesophageal reflux disease): Code(s): K21.9 - Gastro-esophageal reflux disease without esophagitis Category: Medical Qualifiers: Esophagitis presence: without esophagitis Qualified Code(s): K21.9 - Gastro-esophageal reflux disease without esophagitis (2) Constipation: Code(s): K59.00 - Constipation, unspecified Qualifiers: Constipation type: slow transit constipation Qualified Code(s): K59.01 - Slow transit constipation (3) Screen for colon cancer: Code(s): Z12.11 - Encounter for screening for malignant neoplasm of colon Plan Patient will continue taking Dulcolax daily. Increase fluid intake and activity to promote better bowel motility. Please ensure patient has a enough Dulcolax. He should take Dulcolax few days before the procedure to ensure that he has a good prep. What to expect before during and after procedure discussed with patient. Stressed the importance of good bowel prep as well as clear liquid diet. Patient denies any cardiac or respiratory symptoms. Denies any melena, hematochezia, unintentional weight loss or ribbon like stools. Patient denies any dyspepsia, dysphagia or odynophagia. He can continue taking omeprazole as ordered. Patient will be scheduled for endoscopy as well. I will see patient after the procedure, sooner on as needed basis. He is agreeable to this plan and verbalizes understanding of instructions. He was given the opportunity to ask questions and all questions answered. Thank you for allowing me to participate in his care Orders: Referrals GI Procedure Notification Z12.11 - Encounter for screening for malignant neoplasm of colon Medications: New polyethylene glycol 3350 (Miralax) As directed by gastroenterology department at [facility] 238 grams PO ONCE 238 grams 0RF Z12.11 - Encounter for screening for malignant neoplasm of colon bisacodyl (Dulcolax (bisacodyl)) 10 mg (2 x 5 mg) PO BEDTIME 180 tabs 4RF bisacodyl (Dulcolax (bisacodyl)) take 4 tabs at noon the day before your colonoscopy 20 mg (4 x 5 mg) PO ONCE 4 tabs 0RF constipation 1 day Z12.11 - Encounter for screening for malignant neoplasm of colon Refilled omeprazole 20 mg PO BID 180 caps 2RF Coding Level of Care Code Est Pt Level 4 (25292) Complex EM visit Add On G2211 Diagnoses Gastroesophageal reflux disease without esophagitis K21.9 Esophagitis presence: without esophagitis Slow transit constipation K59.01 Constipation type: slow transit constipation Screen for colon cancer Z12.11 Time Spent (min) 35 Comment 25 minutes spent with patient and additional 10 minutes spent reviewing his records
[2025-04-14 12:59] VITALS: BP 112/68; PULSE 54; O2SAT 95; BMI 28.2
== END 2025-04-14 13:41 | disposition home or self-care (01) ==
LOC: HO.HGI 12:34
PROVIDERS: PCP Internal Medicine; Visit Provider Nurse Practitioner Family
DX: Z01.818 Encounter for other preprocedural examination (principal); Z12.11 Encounter for screening for malignant neoplasm of colon; Z86.0101 Personal history of adenomatous and serrated colon polyps; K59.01 Slow transit constipation; K21.9 Gastro-esophageal reflux disease without esophagitis
CPT/HCPCS: 99214; G2211

== ENCOUNTER → 2025-04-14 12:33 | Outpatient (BNVA) | payer MEDICARE, MEDICAID, SELFPAY | PROVIDERS: PCP Internal Medicine; Visit Provider Nurse Practitioner Family | DX: Z12.11 Encounter for screening for malignant neoplasm of colon (principal); K21.9 Gastro-esophageal reflux disease without esophagitis; K59.01 Slow transit constipation | CPT/HCPCS: 99212 ==

== ENCOUNTER 2025-04-28 15:25 | Outpatient (AMB) | payer MEDICARE, MEDICAID, SELFPAY ==
[2025-04-28 15:43] VITALS: BP 120/67; PULSE 68; O2SAT 95; BMI 29.0
--- NOTE | 2025-04-28 15:43 | MHC.OFFVIS ---
Vital Signs 04/28/25 15:43 Height 5 ft 11 in Weight 208 lb BMI 29.0 BP 120/67 Blood Pressure Location Rt brachial Position Sitting Pulse 68 Pulse Source Pulse Oximeter Pulse Oximetry (%) 95 Oxygen Delivery Method Room Air Intake Visit Reasons: asthma Allergies shellfish derived Allergy (Severe, Verified 04/28/25 15:46) Anaphylaxis HPI HPI asthma: Details: 64-year-old gentleman now followed for bronchiectasis, reactive airway disease, and mediastinal lymphadenopathy. He continues on Breo, Incruse, duo nebs, and albuterol MDI with reasonable baseline control of his symptoms. Patient states that he gets recurrent exacerbation of his underlying bronchiectasis related bronchitis with symptoms going away while on antibiotic therapy and returning week or 2 later. [facility] Medical History Subclinical hyperthyroidism Sleep apnea Asthma GERD (gastroesophageal reflux disease) Tubular adenoma Abdominal pain Screening for prostate cancer Depression Fatigue Epidermal inclusion cyst Surgical History History of bunionectomy History of excision of epidermal inclusion cyst (~04/09/20) History of colonoscopy (~05/2011) History of esophagogastroduodenoscopy (EGD) (~05/2011) History of left knee surgery (~04/2016) History of hernia repair (~1990) History of removal of cyst (~04/2019) Family History Father History of hypertension History of heart disease History of diabetes mellitus Mother History of skin cancer Sister History of arthritis History of colon cancer History of breast cancer Mental health disorder Son No problems noted. Daughter No problems noted. Social History Housing: Apartment Alcohol intake: never Patient Tobacco Use Status: Former Tobacco user Tobacco use type: Cigarette e-Cigarette/Vaping Use: Never Used Second Hand Smoke Exposure: Yes service: No Current occupational status: unemployed and disabled Current occupation: left hand Cognitive needs: Yes Hearing needs: No Vision needs: No Review of Systems Const Denies daytime sleepiness, Denies excessive sweating, Denies fatigue, Denies fever(s), Denies lethargy, Denies malaise, Denies night sweats, Denies snoring and Denies weight loss Eyes Denies blurry vision and Denies itchy eyes ENT Denies nasal congestion, Denies post nasal drip, Denies sinus pain, Denies sinus pressure and Denies other ( Thrush) Card Denies chest pain, Denies pedal edema, Denies dyspnea, Denies orthopnea and Denies paroxysmal nocturnal dyspnea Resp Reports cough, Denies hemoptysis, Reports excessive phlegm production, Denies dyspnea, Denies snoring and Denies wheezing GI Denies abdominal pain and Denies heartburn Musc Denies myalgias, Denies arthralgias and Denies joint swelling Skin/Breast Denies rash Neuro Denies memory loss and Denies seizure-like activity Psych Denies abnormal sleep pattern, Denies anxiety and Denies memory loss Endo Denies excessive sweating, Denies fatigue and Denies heat intolerance Brent/Lymph Denies easy bruising Aller/Immun Denies itchy eyes, Denies seasonal rhinorrhea and Denies wheezing Physical Exam Vital Signs: Last Vital Signs Pulse 68 04/28/25 15:43 BP 120/67 04/28/25 15:43 Pulse Ox 95 04/28/25 15:43 Oxygen Delivery Method Room Air 04/28/25 15:43 BMI result Body Mass Index 29.0 Const General: no acute distress and alert Nutritional Appearance: not obese Orientation/consciousness: Other orientation findings ( oriented) HEENT Head: Yes atraumatic Eyes General: appearance normal, both eyes and all related structures Sclerae: sclerae normal EOM: EOMs intact bilaterally Neck Neck: Yes supple Lymphatic: no lymphadenopathy noted Resp Effort & Inspection: normal respiratory effort and no use of accessory muscles Auscultation: crackles (Mild bilateral) Cardio Rate: regular rate Rhythm: regular rhythm Heart sounds: no gallops, no murmurs and no rubs Skin General skin exam: other ( warm) Extrem General: No clubbing, No cyanosis and No edema Assessment & Plan Assessment & Plan (1) Asthma: Code(s): J45.909 - Unspecified asthma, uncomplicated Category: Medical Plan: Baseline well controlled on Breo, duo nebs, and albuterol MDI/nebs. Continue current regimen. (2) Bronchiectasis: Code(s): J47.9 - Bronchiectasis, uncomplicated Category: Medical Plan: Now with recurrent symptoms, will treat with a course of azithromycin and then start on suppressive azithromycin therapy. (3) Mediastinal lymphadenopathy: Code(s): R59.0 - Localized enlarged lymph nodes Category: Medical Plan: Results of follow-up CT chest reviewed, stable findings with no worrisome nodules. Medications: New azithromycin For 250 mg dose pack: take 500 mg today (day 1), then 250 mg for 4 days (days 2-5) PO. Then, 1 pill on Monday, Monday, and Monday. 18 tabs 6RF Coding Level of Care Code Est Pt Level 4 (93142) Diagnoses Asthma J45.909 Bronchiectasis J47.9 Mediastinal lymphadenopathy R59.0
--- OUTSIDE RECORDS SUMMARY | 2025-04-28 17:49 | XMS_ITS | Clinical Summary ---
Author Organization [facility] Address [address] [place] [address] [address] [place] [address] Care Team Providers Care Launch Commander [employer] Name Role Phone Unavailable Primary Care Provider Unavailabl e Allergies No known active allergies Medications No known medications Active Problems Problem Noted Date Diagnosed Date Edentulous maxilla 04/07/2025 Ill-fitting dentures 08/02/2023 Encounters Date Type Department Care Team Description 04/08/2025 8:00 AM EDT Office Visit [facility] [address] [place] [address] Kosta Marley DDS Ill-fitting dentures (Primary Dx) 04/07/2025 8:30 AM EDT Office Visit [facility] [address] [place] [address] Kosta Marley DDS Ill-fitting dentures (Primary Dx); [...] Most Recently Relevant to Health Maintenance Insurance [facility] MEDICAID STAND ADULT
--- OUTSIDE RECORDS SUMMARY | 2025-04-28 17:49 | XMS_ITS | Encounter Summary ---
Author Organization [facility] Address [address] [place] [id number] Care Team Providers Care User Support Analyst Name Role Phone Unavailable Primary Care [...]
== END 2025-04-28 15:55 | disposition home or self-care (01) ==
LOC: HO.HPS 15:25
PROVIDERS: PCP Internal Medicine; Visit Provider Internal Medicine Pulmonary Disease
DX: J45.909 Unspecified asthma, uncomplicated (principal); J47.9 Bronchiectasis, uncomplicated; R59.0 Localized enlarged lymph nodes
CPT/HCPCS: 99214

== ENCOUNTER → 2025-04-28 15:25 | Outpatient (BNVA) | payer MEDICARE, MEDICAID, SELFPAY | PROVIDERS: PCP Internal Medicine; Visit Provider Internal Medicine Pulmonary Disease | DX: J45.909 Unspecified asthma, uncomplicated (principal); J47.9 Bronchiectasis, uncomplicated; R59.0 Localized enlarged lymph nodes; Z87.891 Personal history of nicotine dependence | CPT/HCPCS: 99212 ==

== ENCOUNTER 2025-05-01 08:11 | Day surgery (SDC) | payer MEDICARE, MEDICAID, SELFPAY ==
--- OUTSIDE RECORDS SUMMARY | 2025-04-16 14:17 | XMS_ITS | Clinical Summary ---
Author Organization [employer] [facility] Address [address] [place] [address] 7t [place] [address] Care Team Providers Care Harnessmaker Name Role Phone Unavailable Primary Care Provider Unavailabl e Allergies No known active allergies Medications No known medications Active Problems Problem Noted Date Diagnosed Date Edentulous maxilla 04/07/2025 Ill-fitting dentures 08/02/2023 Encounters Date Type Department Care Team Description 04/08/2025 8:00 AM EDT Office Visit [facility] ADULT DENTAL [address] [place] [address] Kosta Marley DDS Ill-fitting dentures (Primary Dx) 04/07/2025 8:30 AM EDT Office Visit [facility] ADULT DENTAL [address] [place] [address] Kosta Marley DDS Ill-fitting dentures (Primary Dx); [...] Most Recently Relevant to Health Maintenance Insurance [facility] MEDICAID STAND ADULT
--- OUTSIDE RECORDS SUMMARY | 2025-04-16 14:17 | XMS_ITS | Encounter Summary ---
Author Organization [employer] [facility] Address [address] [facility] 7t h Floor [place] [id number] Care Team Providers Care Animal Husbandry Worker Name Role Phone Unavailable Primary Care Provider [...]
[2025-04-29 14:15] VITALS: BMI 29.0
[2025-05-01 08:42] VITALS: BMI 27.9
[2025-05-01 08:54] VITALS: BP 125/68; PULSE 62; RESP 16; TEMP 36.6; O2SAT 97
--- NOTE | 2025-05-01 10:02 | P.HPSUR_ITS ---
Pre-Procedural Eval Section A - 24 Hr Update-Section A only Date of Service: 05/01/25 Section B - Complete if H&P > 30 days Chief Complaint: screening Relevant Family History (Specify if Yes): Yes Relevant Social History: None Present Medications: see Short Stay Collaborative assessment Medical History: Significant History (Subclinical hyperthyroidism Sleep apnea Asthma GERD (gastroesophageal reflux disease) Tubular adenoma Abdominal pain Screening for prostate cancer Depression Fatigue Epidermal inclusion cyst) History of Previous Operations: Relevant previous surgery/procedure and date(s) (History of bunionectomy History of excision of epidermal inclusion cyst (~04/09/20) History of colonoscopy (~05/2011) History of esophagogastroduodenoscopy (EGD) (~05/2011) History of left knee surgery (~04/2016) History of hernia repair (~1990) History of removal of cyst (~04/2019)) Allergies: Allergies Allergy/AdvReac Type Severity Reaction Status Date / Time shellfish derived Allergy Severe Anaphylaxis Verified 04/28/25 15:46 Review of Systems Sugical H&P ROS: Negative: Constitution, Cardiovascular, Respiratory, Neurological, Psychiatric, Hem-Onc, Allergic/Immunologic, Gastrointestinal, Genitourinary, Musculoskeletal, Integumentary, Endocrine and Ey es/Ears/Nose/Throat Exam Surgical H&P Exam: Normal: HEENT, Normal: Heart, Normal: Lungs, Normal: Extremities, Normal: Abdomen, Normal: Skin and Normal: Neurological Plan Diagnosis/Plan: Unchanged I have reviewed the history and physical and performed a pertinent physical examination on my patient. No changes have occurred unless specified. Time Spent With Patient Time: Total time managing care of this patient today ____ minutes.
--- NOTE | 2025-05-01 10:14 | PM.ANESCN ---
History of Present Illness Consult details Consult date: 05/01/25 [facility] Past Medical History Medical History Subclinical hyperthyroidism Sleep apnea Asthma GERD (gastroesophageal reflux disease) Tubular adenoma Abdominal pain Screening for prostate cancer Depression Fatigue Epidermal inclusion cyst Family History Family History Father History of hypertension History of heart disease History of diabetes mellitus Mother History of skin cancer Sister History of arthritis History of colon cancer History of breast cancer Mental health disorder Son No problems noted. Daughter No problems noted. Surgical History Surgical History History of bunionectomy History of excision of epidermal inclusion cyst (~04/09/20) History of colonoscopy (~05/2011) History of esophagogastroduodenoscopy (EGD) (~05/2011) History of left knee surgery (~04/2016) History of hernia repair (~1990) History of removal of cyst (~04/2019) Social History Social History Housing: Apartment Alcohol intake: never Patient Tobacco Use Status: Former Tobacco user Tobacco use type: Cigarette e-Cigarette/Vaping Use: Never Used Second Hand Smoke Exposure: Yes service: No Current occupational status: unemployed and disabled Current occupation: left hand Cognitive needs: Yes Hearing needs: No Vision needs: No Meds Allergies Allergy/AdvReac Type Severity Reaction Status Date / Time shellfish derived Allergy Severe Anaphylaxis Verified 04/28/25 15:46 Home Medications ?Medication ?Instructions ?Recorded ?Confirmed ?Last Taken ?Type clonazepam 0.5 mg tablet 0.5 mg PO BID 04/20/20 05/01/25 05/01/25 07:00 History clonidine HCl 0.2 mg tablet 0.2 - 0.4 mg PO BID 04/20/20 04/29/25 Unknown History fluoxetine 20 mg capsule 40 mg PO DAILY 02/15/22 04/29/25 Unknown History ipratropium 0.5 mg-albuterol 3 mg 3 ml inhalation QID PRN wheezing 02/15/22 04/29/25 Unknown History (2.5 mg base)/3 mL nebulization soln quetiapine 400 mg tablet 400 mg PO BID 01/03/23 04/29/25 Unknown History Physical Exam Vital Signs: Vital Signs: Last Vital Signs Temp 97.9 F 05/01/25 08:54 Pulse 62 05/01/25 08:54 Resp 16 05/01/25 08:54 BP 125/68 05/01/25 08:54 Pulse Ox 97 05/01/25 08:54 O2 Del Method Room Air 05/01/25 08:54 BMI result Body Mass Index 27.9 Results Labs Labs: All other labs normal. Procedures Date of Service Date of Service: 05/02/25
--- NOTE | 2025-05-01 11:07 | P.OPN-COLO_ITS ---
Colonoscopy Operative Note Operative Note Date of Service: 05/01/25 Narrative: Operative Information Procedure Description: Colonoscopy Indication: hx of colon polyps Anesthesia: MAC COLONOSCOPY Instrument: Olympus variable stiffness pediatric scope 190L Colonoscopy Monitoring: Vital signs and clinical assessment, continuous EKG monitoring, Pulse oximetry, Carbon Dioxide monitoring and blood pressure monitoring were done throughout the procedure. Colon withdrawal time was 15 minutes. Procedure: The patient was placed in the left lateral decubitis position and pre-procedure medications were administered. After a digital rectal examination of the ano-rectum, the video colonoscope was inserted into the rectum and advanced through the colon to the cecum/TI. The colonoscope was slowly withdrawn in a retrograde panoramic fashion and the colon mucosa was carefully examined including a retroflexed view of the rectum. Findings and interventions are described below. Procedure Difficulty: moderate Findings: Terminal Ileum-not intubated Cecum:normal Ascending Colon: normal Transverse Colon -normal Descending Colon: x 2 sessile polyps 10 mm removed with cold snare and x1 sessile polyp 11-12mm lifted with eleview and removed with cold snare with x 1 clip applied for hemostasis Sigmoid Colon: moderate diverticulosis, granular mucosa with micro abscesses, erythema, bx taken Rectum: Retroflexion with small internal hemorrhoids seen, grade II, erythema an d granularity, bx taken Anorectum - normal Intervention: cold snare and eleview, hemoclip, cold snare, cold forceps Colon preparation: [place] Bowel Preparation Scale Right colon; 1-2 Transverse colon: 1-2 Left colon; 2 (0 = Unprepared colon segment with mucosa not seen due to solid stool that cannot be cleared. 1 = Portion of mucosa of the colon segment seen, but other areas of the colon s egment not well seen due to staining, residual stool and/or opaque liquid. 2 = Minor amount of residual staining, small fragments of stool and/or opaque liquid, but mucosa of colon segment seen well. 3 = Entire mucosa of colon segment seen well with no residual staining, small fragments of stool or opaque liquid) Impression and Post Procedure Diagnosis: diverticulosis colon polyps x 3 internal hemorrhoids colitis Plan: High fiber diet leaflet Avoid straining at stool, epsom salts and sitz bath, anusol supps or cream Repeat Colonoscopy in 1 year due to fair prep in some areas or earlier if clinically indicated stool samples also sent Above findings were reviewed with the patient and relevant handouts were provided if indicated.
[2025-05-01 11:10] VITALS: BP 91/54; PULSE 59; RESP 16; TEMP 36.5; O2SAT 97
[2025-05-01 11:25] VITALS: BP 103/59; PULSE 76; RESP 16; O2SAT 96
[2025-05-01 11:42] VITALS: TEMP 36.6
[2025-05-01 12:56] LABS: CDiff Gene PCR NEGATIVE (Negative)
[2025-05-01 12:57] LABS: E. coli EAEC Not Detected (Not Detect.); E. coli EPEC Not Detected (Not Detect.); E. coli ETEC Not Detected (Not Detect.); E. coli STEC Not Detected (Not Detect.); Shigella sp./EIEC Not Detected (Not Detect.)
[2025-05-08 01:08] LABS: Lactoferrin, Fecal, Quant. <6.25 mcg/mL (<7.25)
== END 2025-05-01 12:28 | disposition home or self-care (01) ==
PROVIDERS: PCP Internal Medicine; Visit Provider Internal Medicine Gastroenterology
PROC: 0DJD8ZZ Inspection of Lower Intestinal Tract, Via Natural or Artificial Opening Endoscopic (ICD-10-PCS; CPT 45378; principal; 2025-05-01 10:00)
DX: Z12.11 Encounter for screening for malignant neoplasm of colon (principal); Z86.0101 Personal history of adenomatous and serrated colon polyps; D12.4 Benign neoplasm of descending colon; K57.30 Diverticulosis of large intestine without perforation or abscess without bleeding; K64.1 Second degree hemorrhoids; K51.30 Ulcerative (chronic) rectosigmoiditis without complications; K62.89 Other specified diseases of anus and rectum; K59.01 Slow transit constipation; K21.9 Gastro-esophageal reflux disease without esophagitis; R14.0 Abdominal distension (gaseous); E03.8 Other specified hypothyroidism; R53.83 Other fatigue; G47.33 Obstructive sleep apnea (adult) (pediatric); F32.A Depression, unspecified; Z79.51 Long term (current) use of inhaled steroids; Z79.899 Other long term (current) drug therapy; Z91.013 Allergy to seafood; Z98.890 Other specified postprocedural states; Z87.891 Personal history of nicotine dependence; Z56.0 Unemployment, unspecified
CPT/HCPCS: 45385; 45380; 45381; 83631; 87493; 87507; 88305; J2003; J2704; J3010

== ENCOUNTER → 2025-05-01 08:11 | Outpatient (BNV) | payer MEDICARE, MEDICAID, SELFPAY | PROVIDERS: PCP Internal Medicine; Visit Provider Internal Medicine Gastroenterology | DX: Z12.11 Encounter for screening for malignant neoplasm of colon (principal); Z86.0100 Personal history of colon polyps, unspecified; D12.4 Benign neoplasm of descending colon; K52.9 Noninfective gastroenteritis and colitis, unspecified; K57.90 Diverticulosis of intestine, part unspecified, without perforation or abscess without bleeding; K64.1 Second degree hemorrhoids | CPT/HCPCS: 45380; 45381; 45385 ==

== ENCOUNTER 2025-05-07 13:15 | Outpatient (AMB) | payer MEDICARE, MEDICAID, SELFPAY ==
[2025-05-07 13:22] VITALS: BP 138/78; PULSE 68; TEMP 36.3; O2SAT 95; BMI 28.5
--- NOTE | 2025-05-07 13:22 | MHC.PC.OV ---
Vital Signs 05/07/25 13:22 Height 5 ft 11 in Weight 204 lb 2 oz BMI 28.5 BP 138/78 Blood Pressure Location Lt brachial Position Sitting Pulse 68 Pulse Source Pulse Oximeter Temp 97.4 F Temp Source Temporal Artery Scan Pulse Oximetry (%) 95 Oxygen Delivery Method Room Air Intake Visit Reasons: asthma Machine Erector Required: No Accompanied by: Self / Same As Patient Allergies shellfish derived Allergy (Severe, Verified 05/07/25 13:38) Anaphylaxis Medication List - Last Reconciled 05/07/25 by Alla Kay MD albuterol sulfate 90 mcg/actuation 2 puffs inhalation Q4-6H PRN azithromycin For 250 mg dose pack: take 500 mg today (day 1), then 250 mg for 4 days (days 2-5) PO. Then, 1 pill on Monday, Monday, and Monday. bisacodyl (Dulcolax (bisacodyl)) 10 mg (2 x 5 mg) PO BEDTIME bisacodyl (Dulcolax (bisacodyl)) 20 mg (4 x 5 mg) PO ONCE 1 day Breo Ellipta 200-25 mcg/dose (fluticasone furoate-vilanterol) 1 inh inhalation DAILY 30 days NS cholecalciferol (vitamin D3) 25 mcg PO DAILY clonazepam 0.5 mg PO BID clonidine HCl 0.2 - 0.4 mg PO BID diclofenac sodium 1% (Arthritis Pain (diclofenac)) 4 grams topical QID docusate sodium 100 mg PO BEDTIME fluoxetine 40 mg PO DAILY ibuprofen 800 mg PO TID 30 days ipratropium-albuterol 0.5 mg-3 mg(2.5 mg base)/3 mL 3 mL inhalation QID PRN [left knee brace As directed] loratadine 10 mg PO DAILY PRN magnesium oxide 400 mg PO DAILY naproxen (Naprosyn) 500 mg PO BID PRN omeprazole 20 mg PO BID polyethylene glycol 3350 (Miralax) 238 grams PO ONCE quetiapine 400 mg PO BID [Shower chair As directed] tadalafil (Cialis) 20 mg PO .PRN 90 days tadalafil (Cialis) 5 mg PO DAILY 90 days tamsulosin 0.4 mg PO BEDTIME 90 days Tobacco use date assessed: 05/07/25 Dental Screening Dental Screen Date: 05/07/25 Did you have a dental visit in the last 12 months?: Yes Did you have a dental problem in the last 6 months where you did not have access to dental care?: No Was dental information given to patient?: Patient has dentist HPI HPI Comments History of Present Illness Details The patient is a 64-year-old male presenting for a follow-up visit to manage chronic conditions. The patient has a history of asthma, which is currently managed with a daily inhaler. He is also under the care of a neonatal icu coordinator for this condition. His anxiety and depression are treated by a psychiatrist, and he is currently stable on his medication regimen. The patient experiences gastroesophageal reflux disease, for which he takes omeprazole. He also reports constipation, managed with docusate. Recently, he experienced a norovirus infection, but he denies current symptoms of diarrhea. He has a history of abnormal TSH, with recent lab results indicating low thyroid levels. A follow-up test is scheduled for June 02. The patient underwent a colonoscopy on May 01, which revealed diverticulosis. A repeat colonoscopy is recommended in one year. Preventative care measures discussed include receiving the influenza and pneumonia vaccinations. [facility] Medical History (Updated 05/07/25 @ 14:23 by Alla Kay MD) Subclinical hyperthyroidism Sleep apnea Asthma GERD (gastroesophageal reflux disease) Tubular adenoma Abdominal pain Screening for prostate cancer Depression Fatigue Epidermal inclusion cyst Surgical History History of bunionectomy History of excision of epidermal inclusion cyst (~04/09/20) History of colonoscopy (~05/2011) History of esophagogastroduodenoscopy (EGD) (~05/2011) History of left knee surgery (~04/2016) History of hernia repair (~1990) History of removal of cyst (~04/2019) Family History Father History of hypertension History of heart disease History of diabetes mellitus Mother History of skin cancer Sister History of arthritis History of colon cancer History of breast cancer Mental health disorder Son No problems noted. Daughter No problems noted. Social History Housing: Apartment Alcohol intake: never Patient Tobacco Use Status: Former Tobacco user Tobacco use type: Cigarette e-Cigarette/Vaping Use: Never Used Second Hand Smoke Exposure: Yes service: No Current occupational status: unemployed and disabled Current occupation: left hand Cognitive needs: Yes Hearing needs: No Vision needs: No Questionnaire PHQ-9 Over the last 2 weeks, how often have you been bothered by any of the following problems? 1. Little interest or pleasure in doing things: not at all 2. Feeling down, depressed, or hopeless: several days 3. Trouble falling or staying asleep, or sleeping too much: not at all 4. Feeling tired or having little energy: not at all 5. Poor appetite or overeating: several days 6. Feeling bad about yourself - or that you are a failure or have let yourself or your family down: not at all 7. Trouble concentrating on things, such as reading the newspaper or watching television: several days 8. Moving or speaking so slowly that other people could have noticed. Or the opposite - being so fidgety or restless that you have been moving around a lot more than usual: not at all 9. Thoughts that you would be better off or of hurting yourself in some way: not at all Total score: 3 Depression Screening Interpretation: Positive Depression Screening Follow-up: Existing condition and Follow-up Visit Requested Depression Screening Done: Yes 32561 - PHQ-9 Billing: Yes Source: Developed by Drs. Red Duggan, Ashley Jhaveri, Humberto Barreto and colleagues, with an educational waylon from [facility]. Thrive Questionnaire Date Thrive assessed: 09/26/24 I am a: Patient What is your living situation today?: I have a steady place to live Within the past 12 months, did the food you bought not last and you didn't have the money to get more?: I choose not to answer this question Within the past 12 months, did you worry whether your food would run out before you got money to buy more?: I choose not to answer this question Do you have trouble paying for medicines?: I choose not to answer this question Do you have trouble getting transportation to medical appointments?: I choose not to answer this question Do you have trouble paying your heating and electricity bill?: I choose not to answer this question Do you have trouble taking care of your child, family member or friend?: I choose not to answer this question Do you have trouble with day-to-day activities such as bathing, preparing meals, shopping, managing finances, etc.?: I choose not to answer this question Are you currently unemployed and looking for a job?: I choose not to answer this question Are you interested in more education?: I choose not to answer this question Please select the resources that you would like help with: None Currently or been in a relationship where the following occur: I choose not to answer THRIVE Score: 0 AUDIT C Alcohol Use Questionnaire (AUDIT-C) 1. How often do you have a drink containing alcohol?: Never 3. How often do you have six or more drinks on one occasion?: Never Total Score: 0 Score Reviewed/Action Taken: No GUS-7 AMB Questionnaire GUS-7 Date GUS - 7 assessed: 01/01/25 Feeling nervous, anxious, or on edge: 0 = Not at all Not being able to stop or control worryin = Not at all Worrying too much about different things: 0 = Not at all Trouble relaxin = Not at all Being so restless that it is hard to sit still: 0 = Not at all Becoming easily annoyed or irritable: 0 = Not at all Feeling afraid as if something awful might happen: 0 = Not at all Total GUS-7 score (0-4 normal; 5-9 mild; 10-14 moderate; 15-21 severe): 0 Source: Developed by Drs. Red Duggan, Ashley Jhaveri, Humberto Barreto and colleagues, with an educational waylon from [facility]. GUS-7 Assessment Billing GUS-7 Assessment Tool: GUS-7 Assessment 96060 Review of Systems Const All systems reviewed & are unremarkable except as noted in HPI and below Card Denies chest pain at rest, Denies chest pain with activity, Denies edema, Denies irregular heart rhythm, Denies claudication, Denies dyspnea, Denies dyspnea on exertion, Denies orthopnea, Denies paroxysmal nocturnal dyspnea and Denies slow heart rate Resp Denies cough, Denies dyspnea and Denies dyspnea on exertion GI Denies abdominal pain, Denies change in bowel habits, Denies excessive flatus, Denies nausea and Denies vomiting Physical exam (Primary Care) Vital Signs: Last Vital Signs Temp 97.4 F 05/07/25 13:22 Pulse 68 05/07/25 13:22 BP 138/78 05/07/25 13:22 Pulse Ox 95 05/07/25 13:22 Oxygen Delivery Method Room Air 05/07/25 13:22 BMI result Body Mass Index 28.5 Tobacco/Smoking Status: Tobacco use Status Tobacco use date assessed 05/07/25 05/07/25 13:29 Patient Tobacco Use Status Former Tobacco user 05/07/25 13:29 Tobacco use type Cigarette 05/07/25 13:29 e-Cigarette/Vaping Use Never Used 05/07/25 13:29 PHQ-9: PHQ-9 Score PHQ-9: Total score 3 05/07/25 13:29 Depression Screening Interpretation: Positive Depression Screening Follow-up: Existing condition and Follow-up Visit Requested Thrive Assessment: Date of Thrive Assessment Date Thrive assessed 09/26/24 05/07/25 13:29 Currently or been in a relationship where the following occur: I choose not to answer Neck Neck: Yes normal visual inspection and Yes supple Resp Effort & Inspection: normal respiratory effort Auscultation: clear to auscultation bilaterally Cardio Jugular venous distension: no JVD Rate: regular rate Rhythm: regular rhythm Heart sounds: S1 normal heart sound present and S2 normal heart sound present Extrem General: Yes full ROM Coding Level of Care Code Est Pt Level 4 (24345) Diagnoses Low TSH level R79.89 Gastroesophageal reflux disease without esophagitis K21.9 Esophagitis presence: without esophagitis Asthma J45.909 Chronic idiopathic constipation K59.04 Additional Codes PHQ-9 - 74877 - PHQ-9 Billing: Yes ([id number]) GUS-7 Assessment Billing - GUS-7 Assessment Tool: GUS-7 Assessment 86861 ([id number]) Time Spent (min) 23 Assessment & Plan Assessment & Plan (1) Low TSH level: Code(s): R79.89 - Other specified abnormal findings of blood chemistry Category: Medical (2) GERD (gastroesophageal reflux disease): Code(s): K21.9 - Gastro-esophageal reflux disease without esophagitis Category: Medical Qualifiers: Esophagitis presence: without esophagitis Qualified Code(s): K21.9 - Gastro-esophageal reflux disease without esophagitis (3) Asthma: Code(s): J45.909 - Unspecified asthma, uncomplicated Category: Medical (4) Chronic idiopathic constipation: Code(s): K59.04 - Chronic idiopathic constipation Category: Medical Plan Plan Patient was informed and verbally consented to the use of an ambient scribe for clinic note documentation during this visit. 1. Asthma The patient's asthma is managed with a daily inhaler, and he is under the care of a neonatal icu coordinator. 2. Anxiety Anxiety is managed by a psychiatrist, and the patient is stable on his current medication regimen. 3. Depression Depression is managed by a psychiatrist, and the patient is stable on his current medication regimen. 4. Gastroesophageal Reflux Disease The patient takes omeprazole for gastroesophageal reflux disease. 5. Constipation Constipation is managed with docusate. 6. Low TSH The patient has low thyroid levels, with a follow-up test scheduled for June 02. 7. Norovirus Infection The patient recently experienced a norovirus infection but denies current symptoms of diarrhea. 8. Preventative Care: Colonoscopy A colonoscopy was performed on May 01, and a repeat is recommended in one year. Orders: Orders Comprehensive Met. Panel Today R73.02 - Impaired glucose tolerance (oral) Thyroid Stimulating Hormone Today R79.89 - Other specified abnormal findings of blood chemistry Free T4 (Free Thyroxine) Today R79.89 - Other specified abnormal findings of blood chemistry Medications: New diphenhydramine HCl 25 mg PO BEDTIME PRN 90 caps 0RF allergies 90 days
--- OUTSIDE RECORDS SUMMARY | 2025-05-07 16:55 | XMS_ITS | Clinical Summary ---
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
--- OUTSIDE RECORDS SUMMARY | 2025-05-07 16:55 | XMS_ITS | Encounter Summary ---
Author Organization [facility] Address [address] [place] [id number] Care Team Providers Care Alumni Relations Coordinator Name Role Phone Unavailable Primary Care [...]
== END 2025-05-07 13:56 | disposition home or self-care (01) ==
LOC: HO.HMCH 13:16
PROVIDERS: PCP Internal Medicine; Visit Provider Internal Medicine
DX: R79.89 Other specified abnormal findings of blood chemistry (principal); K21.9 Gastro-esophageal reflux disease without esophagitis; J45.909 Unspecified asthma, uncomplicated; K59.04 Chronic idiopathic constipation

== ENCOUNTER 2025-05-07 13:15 | Outpatient (REF) | payer MEDICARE, MEDICAID, SELFPAY ==
[2025-05-07 16:21] LABS: Alanine Aminotransferase 21 U/L (0-40); Albumin Level 4.7 g/dL (3.5-5.0); Alkaline Phosphatase 71 U/L (39-117); Anion Gap 11 (12-20); Aspartate Amino Transferase 27 U/L (5-37); Blood Urea Nitrogen 7 mg/dL (9-16); Calcium 10.1 mg/dL (8.4-10.2); Carbon Dioxide 25 mmol/L (22-29); Chloride 107 mmol/L (96-108); Estimated Glomerular Filt Rate > 60; Potassium 4.1 mmol/L (3.3-5.1); Sodium 139 mmol/L (135-145); Total Protein 7.9 g/dL (6.5-8.0)
[2025-05-07 16:37] LABS: Free T4 (Free Thyroxine) 0.99 ng/dL (0.71-1.85); Thyroid Stimulating Hormone 0.13 uIU/mL (0.32-4.0)
== END 2025-05-07 13:16 | disposition home or self-care (01) ==
LOC: HO.LAB 13:15
PROVIDERS: PCP Internal Medicine; Visit Provider Internal Medicine
DX: R73.02 Impaired glucose tolerance (oral) (principal); R79.89 Other specified abnormal findings of blood chemistry; Z79.2 Long term (current) use of antibiotics; Z79.1 Long term (current) use of non-steroidal anti-inflammatories (NSAID); Z79.899 Other long term (current) drug therapy
CPT/HCPCS: 36415; 80053; 84439; 84443; 96127; 99212

== ENCOUNTER 2025-06-10 14:38 | Outpatient (AMB) | payer MEDICARE, MEDICAID, SELFPAY ==
--- NOTE | 2025-06-10 14:44 | A.OFFVIS_ITS ---
Vital Signs 06/10/25 14:45 Height 5 ft 11 in Weight 205 lb 3.752 oz BMI 28.6 BP 114/66 Blood Pressure Location Rt brachial Position Sitting Pulse 78 Pulse Source Pulse Oximeter Pulse Oximetry (%) 96 Oxygen Delivery Method Room Air Intake Visit Reasons: Low TSH level Intake Note: Patient presents here today for LOW TSH follow-up after completion of work-up. Last seen by Dr Raymon MD: * Thyroid Ultrasound: Completed on 03/30/2025 * Thyroid Labs Workup: Completed on 05/07/2025 Structural Welder Required: No Structural Welder Services: Structural Welder Present Structural Welder Name: Patrick Agrawal Information Interpreted: non-clinical & clinical Accompanied by: Self / Same As Patient Allergies shellfish derived Allergy (Severe, Verified 06/10/25 14:45) Anaphylaxis Medication List - Last Reconciled 06/10/25 by Cheko Baxter MD albuterol sulfate 90 mcg/actuation 2 puffs inhalation Q4-6H PRN azithromycin For 250 mg dose pack: take 500 mg today (day 1), then 250 mg for 4 days (days 2-5) PO. Then, 1 pill on Monday, Monday, and Monday. bisacodyl (Dulcolax (bisacodyl)) 10 mg (2 x 5 mg) PO BEDTIME bisacodyl (Dulcolax (bisacodyl)) 20 mg (4 x 5 mg) PO ONCE 1 day Breo Ellipta 200-25 mcg/dose (fluticasone furoate-vilanterol) 1 inh inhalation DAILY 30 days NS cholecalciferol (vitamin D3) 25 mcg PO DAILY clonazepam 0.5 mg PO BID clonidine HCl 0.2 - 0.4 mg PO BID diclofenac sodium 1% (Arthritis Pain (diclofenac)) 4 grams topical QID diphenhydramine HCl 25 mg PO BEDTIME PRN 90 days docusate sodium 100 mg PO BEDTIME fluoxetine 40 mg PO DAILY ibuprofen 800 mg PO TID 30 days ipratropium-albuterol 0.5 mg-3 mg(2.5 mg base)/3 mL 3 mL inhalation QID PRN [left knee brace As directed] loratadine 10 mg PO DAILY PRN magnesium oxide 400 mg PO DAILY naproxen (Naprosyn) 500 mg PO BID PRN omeprazole 20 mg PO BID polyethylene glycol 3350 (Miralax) 238 grams PO ONCE quetiapine 400 mg PO BID [Shower chair As directed] tadalafil (Cialis) 20 mg PO .PRN 90 days tadalafil (Cialis) 5 mg PO DAILY 90 days tamsulosin 0.4 mg PO BEDTIME 90 days HPI Comments Details: 64-year-old male coming in today for initial evaluation of subclinical hyperthyroidism. Chart review shows that patient has had low TSH levels ranging anywhere from 0.2-0.29 since 2020. Normal free T4 levels. Most recently labs done 01/07/2025 showed low TSH of 0.2 with normal free T4 of 1.12, undetectable TPO antibodies. No TSI or TSH receptor antibodies done. In the past he has had evaluation for this where a thyroid uptake and scan was done in April 2022 which showed normal uptake with a homogeneous distribution of the activity with no focal abnormalities. No fracture or history of osteoporosis no heart disease or arrythmias No preceding CT scan No preceding viral illness Patient currently denies changes in appearance of eyes or vision changes, Some intermittent palpitations, once or twice a week, lasts for a few minutes, self resolves , since 3 months. reports some intermittent tremors. chronic many years. Thinks associated with panic attacks. reports increased diaphoresis no heat intolerance No diarrhea reports chronic constipation reports low energy and tiredness 3-4 months Patient denies any difficulty swallowing, pain on swallowing or voice changes or difficulty breathing. reports difficulty swallowing , mcc, not worsening , only with solid foods . reports some neck fullness. Patient denies any history of childhood neck radiation. Denies having ever used lithium, amiodarone or biotin supplements. 2 sisters have thyroid disease, one had thyroid cancer disabled on psychiatric depression quit smoking 15 years ago No drug use alcohol : 2-3 beers some saturdays Interval history 06/10/25 Reports well overall No recent hospitalizations No medicine changes Denies symptoms of palpitations, hand shaking, no diarrhea. lost approximately 7 lbs in the last year Reports heat intolerance, poor sleep, was referred to sleep study by PCP Physical exam: General: Well appearing. NAD. Neck/Thyroid: Thyroid not palpable, no nodules. Eyes: No conjunctival injection, not lid lag or proptosis CV: RRR, no murmur. No edema. Resp:Lungs clear to auscultation bilaterally Abdomen: Soft, nontender. nondistended Extremities/Neuro: No weakness or tremor of outstretched hands Laboratory Tests 01/15/21 12/21/21 01/28/22 08:37 16:14 15:38 TSH 0.25 L 0.20 L 0.29 L Free T4 1.02 1.02 Thyroglobulin Antibody Thyroid Peroxidase Ab 09/13/22 01/07/25 10:43 07:32 TSH 0.25 L 0.20 L Free T4 1.12 Thyroglobulin Antibody <1 Thyroid Peroxidase Ab <1 Laboratory Tests 02/13/25 05/07/25 13:19 14:32 TSH 0.17 L 0.13 L Free T4 1.15 0.99 Total T3 127 Thyroid Stim Immunoglob <89 Thyroid US 04/09/25 FINDINGS: SIZE: Measurements of the thyroid lobes and nodules are given in sagittal, anteroposterior and transverse dimensions respectively. Right Thyroid Lobe: 6.7 x 2.4 x 2.7 cm, volume 23 mL. Parenchyma: The gland echotexture is homogeneous. Thyroid vascularity is normal. Left Thyroid Lobe: 5.5 x 2.6 x 2.2 cm, volume 16.1 mL. Parenchyma: The gland echotexture is homogeneous. Thyroid vascularity is normal. Isthmus: 1.3 cm in maximum AP dimension. Estimated total number of nodules greater than or equal to 1 cm: 0. [employer] nodules are described as follows: 1. Location: Left upper pole. Size: 0.4 x 0.2 x 0.3 cm, volume 0.014 mL. Nodule characteristics: Composition: Solid (2). Echogenicity: Hyperechoic (1). Shape: Wider Margins: Smooth (0). Echogenic Foci: None (0). ACR TI-RADS total points: 4 ACR TI-RADS category: 4 NODES: No lymphadenopathy is seen in the tissue surrounding the thyroid gland. IMPRESSION: Bilateral thyroid gland enlargement suggestive of goiter. There is a solitary nodule in left upper pole left lobe, nonsuspicious. THYROID UPTAKE AND SCAN 05/19/22 CLINICAL INFORMATION: Low TSH. COMPARISON: No previous thyroid scan is available for comparison. TECHNIQUE: Following the oral administration of 303 microcuries of I-123 sodium iodide, thyroid uptake was performed and expressed as a percentage of the administrated dose. Gamma scintillation camera images of the thyroid in the anterior and right and left anterior oblique views were obtained using a pinhole collimator following the administration of 10 mCi Tc-99m pertechnetate. FINDINGS: The uptake is 8.3% at 2 hours and 17.5% at 24 hours (Normal radioiodine uptake at 24 hours is 10% to 30%). The radioiodine uptake is normal. The radiopertechnetate thyroid scintigram demonstrates the thyroid gland to be normal in size, shape, and position. There is homogeneous distribution of activity within the the gland with no focal abnormalities noted. The trapping function appears normal. IMPRESSION: Normal radioiodine uptake. Normal thyroid scan. [facility] Medical History Subclinical hyperthyroidism Sleep apnea Asthma GERD (gastroesophageal reflux disease) Tubular adenoma Abdominal pain Screening for prostate cancer Depression Fatigue Epidermal inclusion cyst Surgical History History of bunionectomy History of excision of epidermal inclusion cyst (~04/09/20) History of colonoscopy (~05/2011) History of esophagogastroduodenoscopy (EGD) (~05/2011) History of left knee surgery (~04/2016) History of hernia repair (~1990) History of removal of cyst (~04/2019) Family History Father History of hypertension History of heart disease History of diabetes mellitus Mother History of skin cancer Sister History of arthritis History of colon cancer History of breast cancer Mental health disorder Son No problems noted. Daughter No problems noted. Social History Housing: Apartment Alcohol intake: never Patient Tobacco Use Status: Former Tobacco user Tobacco use type: Cigarette e-Cigarette/Vaping Use: Never Used Second Hand Smoke Exposure: Yes service: No Current occupational status: unemployed and disabled Current occupation: left hand Cognitive needs: Yes Hearing needs: No Vision needs: No Physical Exam Vital Signs: Last Vital Signs Pulse 78 06/10/25 14:45 BP 114/66 06/10/25 14:45 Pulse Ox 96 06/10/25 14:45 Oxygen Delivery Method Room Air 06/10/25 14:45 BMI result Body Mass Index 28.6 Assessment & Plan Assessment & Plan (1) Low TSH level: Code(s): R79.89 - Other specified abnormal findings of blood chemistry Category: Medical Plan: See below (2) Subclinical hyperthyroidism: Code(s): E05.90 - Thyrotoxicosis, unspecified without thyrotoxic crisis or storm Category: Medical Plan: 64-year-old male coming in today for evaluation of subclinical hyperthyroidism. Chart review shows that patient has had low TSH levels ranging anywhere from 0.2-0.29 since 2020. Normal free T4 levels. Most recently labs done 01/07/2025 showed low TSH of 0.2 with normal free T4 of 1.12, undetectable TPO antibodies. No TSI or TSH receptor antibodies done. In the past he has had evaluation for this where a thyroid uptake and scan was done in April 2022 which showed normal uptake with a homogeneous distribution of the activity with no focal abnormalities. Differential diagnosis include subclinical hyperthyroidism or normal variant, less likely central hypothyroidism given that the patient lack of symptoms hypothyroidism, or lab error as he has persistently shown to have suppressed TSH. Thyroid ultrasound 04/09/2025 showed a solitary left upper 0.4 x 0.2 x 0.3 cm thyroid nodule, volume 0.014 mL. At that time at this point I discussed with the patient that there is to alternative options, 1 being to continue to monitor her as patient does not have symptoms of hyperthyroidism, and previous uptake scan in 2021 was negative, and antibodies were also negative for Graves. The other alternative being to obtain a new uptake scan in the review of these small thyroid nodule, which I think is unlikely to be the cause of the hyperthyroidism. Patient opted for repeating the uptake scan, but we discussed that if the uptake scan was normal then we will continue to monitor after we would not need to further repeat uptake scans unless overt symptoms hyperthyroidism appears. Plan: Order thyroid uptake scan Repeat thyroid function test prior to next Obtain free T4 by dialysis for more accurate FT4 measurement Low iodine diet instructions provided orally and wtitten Plan I spent 30 minutes in reviewing the record, seeing the patient and documenting in the medical record. Orders: Orders NM thyroid w uptake 3 Months E05.90 - Thyrotoxicosis, unspecified without thyrotoxic crisis or storm TSH reflex Free T4 3 Months E05.90 - Thyrotoxicosis, unspecified without thyrotoxic crisis or storm FT4 by [facility] Dialysis 3 Months E05.90 - Thyrotoxicosis, unspecified without thyrotoxic crisis or storm Triiodothyronine T3 Total 3 Months E05.90 - Thyrotoxicosis, unspecified without thyrotoxic crisis or storm Patient Instructions: Low Iodine Diet: Patient Instructions Purpose A low iodine diet (LID) is recommended for a short period (typically 4?14 days) before radioactive iodine (SANDOVAL) therapy or scanning. The goal is to lower the body?s iodine stores, which may improve the effectiveness of SANDOVAL by increasing uptake in thyroid tissue or cancer cells. Duration Typical duration: 4?7 days is sufficient in most cases, especially in areas with adequate iodine nutrition. Maximum duration: 2 weeks. Longer restriction is not necessary and may increase risk of nutritional imbalance. Roach Principles Limit iodine intake to <50 mcg/day. Avoid foods high in iodine. Do NOT confuse a low iodine diet with a low salt diet. You may use non-iodized salt. Foods to AVOID Food/Ingredient Reason Iodized salt, sea salt High in iodine Dairy products (milk, cheese, yogurt, butter, ice cream) High in iodine Egg yolks and whole eggs High in iodine Seafood (fish, shellfish, seaweed, kelp, sushi) Very high in iodine Commercial bakery products (may contain iodate dough conditioners) Possible iodine source Red dye #3 (E127, erythrosine) Contains iodine Soy products (soy milk, tofu, soy sauce) May contain iodine Multivitamins or supplements containing iodine Obvious source Cough syrups, kelp supplements, herbal remedies with seaweed High in iodine Processed foods with unknown salt source May contain iodized salt Foods ALLOWED Food/Ingredient Notes Fresh meats (beef, pork, poultry, aguilar) Not processed/cured with iodized salt Egg whites No yolk Fresh fruits and vegetables All types Grains: plain rice, pasta, oats, unsalted matzo, homemade bread (with non- iodized salt) Avoid commercial breads Unsalted nuts and nut butters Check labels Oils and fats: olive oil, vegetable oil, unsalted margarine (check label) No butter Sugar, honey, maple syrup Coffee, tea, non-dairy creamers (check label) No milk/cream Non-iodized salt Use for seasoning Herbs and spices (not blends with salt) Sample Meal Plan Breakfast: Oatmeal made with water, topped with fresh fruit Black coffee or tea Lunch: Grilled chicken breast Steamed vegetables Rice or baked potato (no butter) Snack: Fresh fruit Unsalted nuts Dinner: Baked fish (if not restricted) or lean beef/poultry Salad with olive oil and vinegar Homemade bread (with non-iodized salt) Additional Tips Read all labels. Avoid products with ?iodized salt,? ?sea salt,? ?kelp,? ?algin,? or ?carrageenan.? Do not eat out unless you can confirm ingredients. Do not use dairy substitutes (soy, almond, oat milks) unless confirmed iodine- free. Continue prescribed medications unless otherwise instructed. Do not take multivitamins or supplements unless cleared by your physician. Safety and Monitoring Hyponatremia risk: Elderly patients or those at risk for low sodium should have serum sodium monitored, as LID can inadvertently reduce salt intake. Nutritional balance: The LID is temporary. If you have difficulty maintaining adequate nutrition, contact your care team. Coding Level of Care Code Est Pt Level 4 (84764) Diagnoses Low TSH level R79.89 Subclinical hyperthyroidism E05.90
[2025-06-10 14:45] VITALS: BP 114/66; PULSE 78; O2SAT 96; BMI 28.6
--- OUTSIDE RECORDS SUMMARY | 2025-06-11 12:33 | XMS_ITS | Encounter Summary ---
Author Organization [employer] [facility] Address [address] [place] [id number] Care Team Providers Care Pattern Changer Name Role Phone Unavailable Primary Care Provider [...]
--- OUTSIDE RECORDS SUMMARY | 2025-06-11 12:33 | XMS_ITS | Clinical Summary ---
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 MEDICAID STAND ADULT
== END 2025-06-10 15:17 | disposition home or self-care (01) ==
LOC: HO.ENCR 14:39
PROVIDERS: PCP Internal Medicine; Visit Provider Student in an Organized Health Care Education/Training Program
DX: R79.89 Other specified abnormal findings of blood chemistry (principal); E05.90 Thyrotoxicosis, unspecified without thyrotoxic crisis or storm
CPT/HCPCS: 99214

== ENCOUNTER → 2025-06-10 14:38 | Outpatient (BNVA) | payer MEDICARE, MEDICAID, SELFPAY | PROVIDERS: PCP Internal Medicine; Visit Provider Student in an Organized Health Care Education/Training Program | DX: R79.89 Other specified abnormal findings of blood chemistry (principal); E05.90 Thyrotoxicosis, unspecified without thyrotoxic crisis or storm | CPT/HCPCS: 99212 ==

== ENCOUNTER 2025-06-18 07:03 | Outpatient (REF) | payer MEDICARE, MEDICAID, SELFPAY ==
--- OUTSIDE RECORDS SUMMARY | 2025-06-18 07:07 | XMS_ITS | Clinical Summary ---
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
--- OUTSIDE RECORDS SUMMARY | 2025-06-18 07:07 | XMS_ITS | Encounter Summary ---
Author Organization [employer] [facility] Address [address] [place] [id number] Care Team Providers Care Career Development Counselor Name Role Phone Unavailable Primary Care Provider [...]
[2025-06-18 08:57] LABS: Free T4 (Free Thyroxine) 1.07 ng/dL (0.71-1.85); Thyroid Stimulating Hormone 0.22 uIU/mL (0.32-4.0)
[2025-06-18 09:02] LABS: Prostate Specific Antigen 0.70 ng/mL (<0.05-4.0)
== END 2025-06-18 07:04 | disposition home or self-care (01) ==
LOC: HO.LAB 07:03
PROVIDERS: PCP Internal Medicine; Visit Provider Nurse Practitioner Family
DX: Z12.5 Encounter for screening for malignant neoplasm of prostate (principal); R79.89 Other specified abnormal findings of blood chemistry; Z13.29 Encounter for screening for other suspected endocrine disorder
CPT/HCPCS: 36415; 84153; 84439; 84443

== ENCOUNTER 2025-07-02 13:43 | Outpatient (AMB) | payer MEDICARE, MEDICAID, SELFPAY ==
--- NOTE | 2025-07-02 13:47 | A.OFFVIS_ITS ---
Intake Visit Reasons: 6M/PSA/PVR/UA Intake Note: Patient is present for 6M/PVR/PSA/UA PSA:0.70 Urology Medication:TAMSULOSIN,TADALAFIL Antibiotic Allergy:NONE Blood Thinner:NONE TODAY'S PVR:2ML'S Manager Of Training And Development Required: Yes Manager Of Training And Development Services: Manager Of Training And Development Present Manager Of Training And Development Name: Jatin [id number] Allergies shellfish derived Allergy (Severe, Verified 07/02/25 14:10) Anaphylaxis Medication List - Last Reconciled 07/02/25 by YARITZA Guerrero albuterol sulfate 90 mcg/actuation 2 puffs inhalation Q4-6H PRN azithromycin For 250 mg dose pack: take 500 mg today (day 1), then 250 mg for 4 days (days 2-5) PO. Then, 1 pill on Monday, Monday, and Monday. bisacodyl (Dulcolax (bisacodyl)) 10 mg (2 x 5 mg) PO BEDTIME bisacodyl (Dulcolax (bisacodyl)) 20 mg (4 x 5 mg) PO ONCE 1 day Breo Ellipta 200-25 mcg/dose (fluticasone furoate-vilanterol) 1 inh inhalation DAILY 30 days NS cholecalciferol (vitamin D3) 25 mcg PO DAILY clonazepam 0.5 mg PO BID clonidine HCl 0.2 - 0.4 mg PO BID diclofenac sodium 1% (Arthritis Pain (diclofenac)) 4 grams topical QID diphenhydramine HCl 25 mg PO BEDTIME PRN 90 days docusate sodium 100 mg PO BEDTIME fluoxetine 40 mg PO DAILY ibuprofen 800 mg PO TID 30 days ipratropium-albuterol 0.5 mg-3 mg(2.5 mg base)/3 mL 3 mL inhalation QID PRN [left knee brace As directed] loratadine 10 mg PO DAILY PRN magnesium oxide 400 mg PO DAILY naproxen (Naprosyn) 500 mg PO BID PRN omeprazole 20 mg PO BID polyethylene glycol 3350 (Miralax) 238 grams PO ONCE quetiapine 400 mg PO BID [Shower chair As directed] tadalafil (Cialis) 20 mg PO .PRN 90 days tadalafil (Cialis) 5 mg PO DAILY 90 days tamsulosin 0.4 mg PO BEDTIME 90 days HPI Comments Details: Amado is a pleasant 64-year-old Mohawk-speaking patient of Dr. Hewitt. He has a past medical history of sleep apnea, asthma, GERD, depression, and fatigue. He presents to the office today for follow-up of his erectile dysfunction, low libido, and urinary urgency. In discussion with the patient today reports to be doing and feeling well. He denies having had any bothersome urological issues or concerns since his last office visit here. He reports compliance with daily dosing of tadalafil as well as p.r.n. dosing prior to sexual activity and feels this has been helpful in maintaining his erections. He also reports compliance with Flomax as prescribed. He currently denies any bothersome urinary issues or concerns. He denies urinary urgency, urinary frequency, incontinence, nocturia, hematuria, dysuria, foul smelling urine, changes to urinary stream, flank pain, fever, and or chills. Urological labs are as follows: Testosterone 12/13 401, free testosterone 52.9 PSAs: 03/14 0.6, 09/15 0.4, 05/16 0.9, 06/17 0.7 Unable to obtain urine for urinalysis as patient unable to void however PVR 2 mL. We did review potential causes of lower urinary tract symptoms patient had been experiencing as well as erectile dysfunction. We did discussed further treatment options and risks and benefits of these treatment options. However, patient reports to be happy with current management. Discussed at length importance of adequate sleep, healthy eating habits, daily exercise/brisk walking daily and maintaining healthy weight. He otherwise offers no other issues or concerns at this time. [facility] Medical History Subclinical hyperthyroidism Sleep apnea Asthma GERD (gastroesophageal reflux disease) Tubular adenoma Abdominal pain Screening for prostate cancer Depression Fatigue Epidermal inclusion cyst Surgical History History of bunionectomy History of excision of epidermal inclusion cyst (~04/09/20) History of colonoscopy (~05/2011) History of esophagogastroduodenoscopy (EGD) (~05/2011) History of left knee surgery (~04/2016) History of hernia repair (~1990) History of removal of cyst (~04/2019) Family History Father History of hypertension History of heart disease History of diabetes mellitus Mother History of skin cancer Sister History of arthritis History of colon cancer History of breast cancer Mental health disorder Son No problems noted. Daughter No problems noted. Social History Housing: Apartment Alcohol intake: never Patient Tobacco Use Status: Former Tobacco user Tobacco use type: Cigarette e-Cigarette/Vaping Use: Never Used Second Hand Smoke Exposure: Yes service: No Current occupational status: unemployed and disabled Current occupation: left hand Cognitive needs: Yes Hearing needs: No Vision needs: No Review of Systems Const Reports as per HPI Eyes Reports no additional complaints ENT Reports as per HPI Card Reports no additional complaints Resp Reports as per HPI GI Reports as per HPI Reports as per HPI Musc Reports no additional complaints Neuro Reports as per HPI Psych Reports as per HPI Endo Reports no additional complaints Physical Exam Const General: cooperative, healthy appearing, comfortable, no acute distress, well developed, alert and awake Nutritional Appearance: average body habitus Orientation/consciousness: patient oriented x3 Limitations: language barrier HEENT Head: Yes normal to inspection, Yes normocephalic and Yes atraumatic Ears: hearing grossly normal bilaterally Eyes General: appearance normal, both eyes and all related structures Neck Neck: Yes normal visual inspection and Yes trachea midline Chest Chest palpation & inspection: normal inspection of the chest Resp Effort & Inspection: normal respiratory effort and able to speak in complete sentences Cardio Rate: regular rate GI Inspection: Yes normal to inspection General: Yes no CVA tenderness Back/Spine/Pelvis Back: no CVA tenderness Skin General skin exam: no rashes or lesions noted Neuro General: patient oriented x3 Extrem General: Yes normal to inspection Psych Appearance: grossly normal and well kempt Mental Status: mental status grossly normal Speech and movement: Normal speech and movement present and Clear speech present Affect: normal affect Attitude: cooperative Thought process: Normal thought process present Thought content: Normal thought content present Insight: Fair insight present (Psych) Judgement: Fair judgement present (Psych) Office Procedures Post Void Residual Post Residual Void Post Void Residual (PVR): 2 [id number] Void Residual by ultrasound Assessment & Plan Assessment & Plan (1) Erectile dysfunction: Code(s): N52.9 - Male erectile dysfunction, unspecified Category: Medical (2) Nocturia: Code(s): R35.1 - Nocturia Category: Medical (3) Low libido: Code(s): R68.82 - Decreased libido Category: Medical (4) Incomplete bladder emptying: Code(s): R33.9 - Retention of urine, unspecified Category: Medical Plan Unable to obtain urine for urinalysis as patient unable to void however PVR 2 mL He currently denies any bothersome urinary issues or concerns. He reports be happy with current voiding parameters. Most recent PSA results reviewed with the patient today; as noted above Will continue with Flomax and Cialis as prescribed. Will continue with surveillance monitoring. Will obtain PSA in 1 year All questions were answered. Follow-up in 1 year with PSA and PVR to be completed prior; or sooner with any issues, concerns, and or questions. Orders: Orders Prostate Specific Antigen 06/18/25 Z12.5 - Encounter for screening for malignant neoplasm of prostate Prostate Specific Antigen 1 Year N52.9 - Male erectile dysfunction, unspecified, R35.1 - Nocturia, R68.82 - Decreased libido AMB Urinalysis Automated Today Z13.9 - Encounter for screening, unspecified Patient Instructions: The patient had an opportunity to ask questions regarding the treatment plan. All questions were answered. Physical exam, labs, and imaging were discussed and reviewed in detail. As well as risks, benefits, and discussion of treatment choices. No major barriers to understanding were identified. The patient expressed understanding and agreement with the above treatment plan. The patient was made aware they should contact our office by phone for worsening of their current condition, the appearance of new symptoms, or with any questions or concerns. Compliance is encouraged with any medications and follow up testing that is ordered. It is a privilege to be allowed the opportunity to participate in? your urological care.? Again, if you have any questions or concerns If you have any questions or concerns please do not hesitate to contact me. The office is [phone]. This note is constructed using voice recognition software. While every effort has been made to ensure accuracy long term care phlebotomist errors may have been included. Yours sincerely, YARITZA Guerrero Coding Level of Care Code Est Pt Level 3 (55545) Add On Problem Visit Only Diagnoses Erectile dysfunction N52.9 Nocturia R35.1 Low libido R68.82 Incomplete bladder emptying R33.9 CPT Codes Post Residual Void - PVR CPT Code: 44209-Wnwp Void Residual by ultrasound ([id number])
--- OUTSIDE RECORDS SUMMARY | 2025-07-02 21:18 | XMS_ITS | Encounter Summary ---
Author Organization [facility] Address [address] [place] [id number] Care Team Providers Care Senior Software Test Engineer Name Role Phone Unavailable Primary Care [...]
--- OUTSIDE RECORDS SUMMARY | 2025-07-02 21:18 | XMS_ITS | Clinical Summary ---
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
== END 2025-07-02 14:17 | disposition home or self-care (01) ==
LOC: HO.HUSH 13:44
PROVIDERS: PCP Internal Medicine; Visit Provider Nurse Practitioner Family
DX: N52.9 Male erectile dysfunction, unspecified (principal); R35.1 Nocturia; R68.82 Decreased libido; R33.9 Retention of urine, unspecified
CPT/HCPCS: 99213; G2211

== ENCOUNTER → 2025-07-02 13:43 | Outpatient (BNVA) | payer MEDICARE, MEDICAID, SELFPAY | PROVIDERS: PCP Internal Medicine; Visit Provider Nurse Practitioner Family | DX: R35.1 Nocturia (principal); R68.82 Decreased libido; R33.9 Retention of urine, unspecified; N52.9 Male erectile dysfunction, unspecified | CPT/HCPCS: 51798; 99212 ==

== ENCOUNTER 2025-07-16 14:16 | Outpatient (AMB) | payer MEDICARE, MEDICAID, SELFPAY ==
--- OUTSIDE RECORDS SUMMARY | 2025-07-16 14:19 | XMS_ITS | Encounter Summary ---
Author Organization [facility] Address [address] [address] [facility] [address] [place] [id number] Care Team Providers Care Integration Analyst Name Role Phone Unavailable Primary [...]
--- OUTSIDE RECORDS SUMMARY | 2025-07-16 14:19 | XMS_ITS | Clinical Summary ---
Author Organization [employer] 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 Ill-fitting dentures 08/02/2023 Social History Tobacco Use [...] Additional history exists Influenza Vaccine (#1) 2025 5, 04/17/2023, 05/25/2022, Additional history exists Dental Oral [...] Procedure Name Priority Date/Time Associated Diagnosis Comments PANORAMIC RADIOGRAPHIC IMAGE Routine 04/07/2025 8:30 AM EDT PERIODIC ORAL EVALUATION - ESTABLISHED PATIENT Routine 04/07/2025 8:30 AM EDT PROPHYLAXIS - ADULT Routine 09/03/2019 1 2:00 AM EST BITEWINGS - 2 RADIOGRAPHIC IMAGES Routine 12/26/2014 12:00 AM EDT from Last 3 Months or Most Recently Relevant to Health Maintenance Insurance [facility] MEDICAID STAND ADULT
--- NOTE | 2025-07-16 14:20 | A.OFFPC_ITS ---
Vital Signs 07/16/25 14:21 Height 5 ft 11 in Weight 208 lb 4 oz BMI 29.0 BP 130/70 Blood Pressure Location Lt brachial Position Sitting Pulse 91 Pulse Source Pulse Oximeter Temp 97.3 F Temp Source Temporal Artery Scan Pulse Oximetry (%) 93 Oxygen Delivery Method Room Air Intake Visit Reasons: Sore throat Intake Note: Patient is here to follow up on Sore throat, runny nose, no fever, chills or cough. Shift Coordinator Required: No Sandstone Splitter: Not Required per policy Accompanied by: Self / Same As Patient Allergies shellfish derived Allergy (Severe, Verified 07/16/25 14:20) Anaphylaxis Medication List - Last Reconciled 07/16/25 by Kalyan Chance MD albuterol sulfate 90 mcg/actuation 2 puffs inhalation Q4-6H PRN bisacodyl (Dulcolax (bisacodyl)) 10 mg (2 x 5 mg) PO BEDTIME bisacodyl (Dulcolax (bisacodyl)) 20 mg (4 x 5 mg) PO ONCE 1 day Breo Ellipta 200-25 mcg/dose (fluticasone furoate-vilanterol) 1 inh inhalation DAILY NS cholecalciferol (vitamin D3) 25 mcg PO DAILY clonazepam 0.5 mg PO BID clonidine HCl 0.2 - 0.4 mg PO BID diclofenac sodium 1% (Arthritis Pain (diclofenac)) 4 grams topical QID diphenhydramine HCl 25 mg PO BEDTIME PRN 90 days docusate sodium 100 mg PO BEDTIME fluoxetine 40 mg PO DAILY ibuprofen 800 mg PO TID 30 days ipratropium-albuterol 0.5 mg-3 mg(2.5 mg base)/3 mL 3 mL inhalation QID PRN [left knee brace As directed] loratadine 10 mg PO DAILY PRN magnesium oxide 400 mg PO DAILY naproxen (Naprosyn) 500 mg PO BID PRN omeprazole 20 mg PO BID polyethylene glycol 3350 (Miralax) 238 grams PO ONCE quetiapine 400 mg PO BID [Shower chair As directed] tadalafil (Cialis) 20 mg PO .PRN 90 days tadalafil (Cialis) 5 mg PO DAILY 90 days tamsulosin 0.4 mg PO BEDTIME 90 days Tobacco use date assessed: 07/16/25 Dental Screening Dental Screen Date: 05/07/25 HPI HPI Comments History of Present Illness Details The patient is a 64 year old male presenting with a sore throat, muscle pain, and joint pain. He reports the sore throat started 2-3 days ago and is associated with rhinorrhea and severe throat dryness at night that interferes with breathing and sleep. He also complains of generalized joint and muscle pain and difficulty swallowing, but denies any fever. He states that this type of illness occurs annually and has been effectively treated in the past with possibly azithromycin. He has taken naproxen for his current symptoms. Rapid strep test negative. He also has a rash, for which he uses Triamnicolon Acetonide cream which he is requesting refills for. [facility] Medical History Subclinical hyperthyroidism Sleep apnea Asthma GERD (gastroesophageal reflux disease) Tubular adenoma Abdominal pain Screening for prostate cancer Depression Fatigue Epidermal inclusion cyst Surgical History History of bunionectomy History of excision of epidermal inclusion cyst (~04/09/20) History of colonoscopy (~05/2011) History of esophagogastroduodenoscopy (EGD) (~05/2011) History of left knee surgery (~04/2016) History of hernia repair (~1990) History of removal of cyst (~04/2019) Family History Father History of hypertension History of heart disease History of diabetes mellitus Mother History of skin cancer Sister History of arthritis History of colon cancer History of breast cancer Mental health disorder Son No problems noted. Daughter No problems noted. Social History Housing: Apartment Alcohol intake: never Patient Tobacco Use Status: Former Tobacco user Tobacco use type: Cigarette e-Cigarette/Vaping Use: Never Used Second Hand Smoke Exposure: Yes service: No Current occupational status: unemployed and disabled Current occupation: left hand Cognitive needs: Yes Hearing needs: No Vision needs: No Questionnaire Thrive Questionnaire Date Thrive assessed: 09/26/24 I am a: Patient What is your living situation today?: I have a steady place to live Within the past 12 months, did the food you bought not last and you didn't have the money to get more?: I choose not to answer this question Within the past 12 months, did you worry whether your food would run out before you got money to buy more?: I choose not to answer this question Do you have trouble paying for medicines?: I choose not to answer this question Do you have trouble getting transportation to medical appointments?: I choose not to answer this question Do you have trouble paying your heating and electricity bill?: I choose not to answer this question Do you have trouble taking care of your child, family member or friend?: I choose not to answer this question Do you have trouble with day-to-day activities such as bathing, preparing meals, shopping, managing finances, etc.?: I choose not to answer this question Are you currently unemployed and looking for a job?: I choose not to answer this question Are you interested in more education?: I choose not to answer this question Currently or been in a relationship where the following occur: I choose not to answer THRIVE Score: 0 GUS-7 AMB Questionnaire GUS-7 Date GUS - 7 assessed: 01/01/25 Source: Developed by Drs. Red Duggan, Ashley Jhaveri, Humberto Barreto and colleagues, with an educational waylon from [employer]. Review of Systems Const Details: As per HPI. Physical exam (Primary Care) Vital Signs: Last Vital Signs Temp 97.3 F 07/16/25 14:21 Pulse 91 07/16/25 14:21 BP 130/70 07/16/25 14:21 Pulse Ox 93 07/16/25 14:21 Oxygen Delivery Method Room Air 07/16/25 14:21 BMI result Body Mass Index 29.0 Tobacco/Smoking Status: Tobacco use Status Tobacco use date assessed 07/16/25 07/16/25 14:29 Patient Tobacco Use Status Former Tobacco user 07/16/25 14:29 Tobacco use type Cigarette 07/16/25 14:29 e-Cigarette/Vaping Use Never Used 07/16/25 14:29 Thrive Assessment: Date of Thrive Assessment Date Thrive assessed 09/26/24 07/16/25 14:29 Currently or been in a relationship where the following occur: I choose not to answer Const Other: Pertinent findings are in BOLD GENERAL APPEARANCE NAD, activity normal for age, well developed/ well nourished, no cyanosis, pallor, or diaphoresis. EYES lids/conjunctiva normal. EARS/NOSE/THROAT Mucous membranes moist, nares normal, lips/teeth normal uvula midline without oral pharyngeal erythema, exudate or swelling TMs normal bilaterally. No lymphangitis/lymphedema. Erythematous tonsils. HEAD/NECK normocephalic atraumatic, no facial trauma, neck is supple. RESPIRATORY respiratory effort normal, speaks in full sentences, no tripod position, no accessory muscle use. Lungs clear to auscultation without rhonchi, wheezes, rales CARDIAC Regular rate and rhythm, no edema. ABDOMINAL Soft, ND/NT. No evidence of fluid wave. No pulsatile masses on exam, rebound tenderness, Campbell sign or pain over Mcburney's point. MUSCLES/EXTREMITIES No abnormal range of motion, no swelling. SKIN Warm, pink and dry. No rashes, dermatoses, petechiae or lesions. NEUROLOGICAL Speech is clear and appropriate. Normal level of consciousness. Gait and coordination are normal. 5/5 strength in all extremities. PSYCH Normal mood and affect. Judgement/competence is appropriate Results AMB Rapid Strep AMB Rapid Strep Negative Last Edit by CELIA Singh on 07/16/25 14:3 8 Results Reviewed Results Reviewed: Laboratory Last Values Strep Scn Rapid Clinic Negative 07/16/25 14:30 Coding Level of Care Code Est Pt Level 3 (39864) Diagnoses Acute pharyngitis J02.9 Time Spent (min) 20 Assessment & Plan Assessment & Plan (1) Acute pharyngitis: Code(s): J02.9 - Acute pharyngitis, unspecified Category: Medical Plan: - The rapid strep test was negative. - Prescribed azithromycin 500 mg daily for three days. - Recommended pain-soothing lozenges and [id number] DayQuil for symptomatic relief. - Advised to stay hydrated with fluids and get adequate rest. - A follow-up visit is scheduled for Monday if symptoms do not improve. Plan I informed the patient that his rapid strep test was negative. I prescribed azithromycin 500 mg for a three-day course. For symptomatic relief, I recommended he continue with naproxen and ibuprofen, and also suggested he could use Tylenol, [id number]-[id number] DayQuil, and soothing lozenges. I emphasized the importance of staying hydrated and getting adequate rest. I arranged for his prescriptions to be sent to his preferred pharmacy, [facility], and offered a follow-up appointment on Monday, clarifying that he only needs to attend if his symptoms have not improved. Orders: Orders AMB Rapid Strep Screen Today Z13.9 - Encounter for screening, unspecified Medications: New azithromycin 500 mg PO DAILY 3 tabs 0RF 3 days benzocaine 15 mg mucous membrane BID-TID PRN 18 ea 0RF sore throat triamcinolone acetonide 0.1% 1 appl topical BID 80 grams 2RF
[2025-07-16 14:21] VITALS: BP 130/70; PULSE 91; TEMP 36.3; O2SAT 93; BMI 29.0
== END 2025-07-16 15:19 | disposition home or self-care (01) ==
PROVIDERS: PCP Internal Medicine; Visit Provider Internal Medicine
DX: Z13.9 Encounter for screening, unspecified (principal); J02.9 Acute pharyngitis, unspecified

== ENCOUNTER → 2025-07-16 14:16 | Outpatient (BNVA) | payer MEDICARE, MEDICAID, SELFPAY | PROVIDERS: PCP Internal Medicine; Visit Provider Internal Medicine | DX: J02.9 Acute pharyngitis, unspecified (principal); Z87.891 Personal history of nicotine dependence | CPT/HCPCS: 87880; 99212 ==

== ENCOUNTER 2025-07-18 13:03 | Outpatient (AMB) | payer MEDICARE, MEDICAID, SELFPAY ==
--- OUTSIDE RECORDS SUMMARY | 2025-07-18 13:08 | XMS_ITS | Encounter Summary ---
Author Organization [employer] [facility] Address [address] [place] [id number] Care Team Providers Care Service Engineer Name Role Phone Unavailable Primary Care [...]
--- OUTSIDE RECORDS SUMMARY | 2025-07-18 13:08 | XMS_ITS | Clinical Summary ---
Author Organization [facility] Address [address] [place] [address] [address] [place] [address] Care Team Providers Care Progressive Care Unit Registered Nurse Name Role Phone Unavailable Primary Care Provider [...] Most Recently Relevant to Health Maintenance Insurance [facility] MEDICAID STAND ADULT
[2025-07-18 13:18] VITALS: BP 118/56; PULSE 88; RESP 18; O2SAT 95; BMI 29.3
--- NOTE | 2025-07-18 13:18 | MHC.PC.OV ---
Vital Signs 07/18/25 13:18 Height 5 ft 11 in Weight 210 lb BMI 29.3 BP 118/56 L Blood Pressure Location Lt brachial Respiration 18 Pulse 88 Pulse Source Pulse Oximeter Temp Source Temporal Artery Scan Pulse Oximetry (%) 95 Oxygen Delivery Method Room Air Intake Visit Reasons: Follow Up Natural Resources Specialist Required: Yes Natural Resources Specialist Language: Czech Accompanied by: Self / Same As Patient Allergies shellfish derived Allergy (Severe, Verified 07/18/25 13:21) Anaphylaxis Medication List - Last Reconciled 07/18/25 by Kalyan Chance MD albuterol sulfate 90 mcg/actuation 2 puffs inhalation Q4-6H PRN azithromycin 500 mg PO DAILY 3 days benzocaine 15 mg mucous membrane BID-TID PRN bisacodyl (Dulcolax (bisacodyl)) 10 mg (2 x 5 mg) PO BEDTIME bisacodyl (Dulcolax (bisacodyl)) 20 mg (4 x 5 mg) PO ONCE 1 day Breo Ellipta 200-25 mcg/dose (fluticasone furoate-vilanterol) 1 inh inhalation DAILY NS cholecalciferol (vitamin D3) 25 mcg PO DAILY clonazepam 0.5 mg PO BID clonidine HCl 0.2 - 0.4 mg PO BID diclofenac sodium 1% (Arthritis Pain (diclofenac)) 4 grams topical QID diphenhydramine HCl 25 mg PO BEDTIME PRN 90 days docusate sodium 100 mg PO BEDTIME fluoxetine 40 mg PO DAILY ibuprofen 800 mg PO TID 30 days ipratropium-albuterol 0.5 mg-3 mg(2.5 mg base)/3 mL 3 mL inhalation QID PRN [left knee brace As directed] loratadine 10 mg PO DAILY PRN magnesium oxide 400 mg PO DAILY naproxen (Naprosyn) 500 mg PO BID PRN omeprazole 20 mg PO BID polyethylene glycol 3350 (Miralax) 238 grams PO ONCE quetiapine 400 mg PO BID [Shower chair As directed] tadalafil (Cialis) 20 mg PO .PRN 90 days tadalafil (Cialis) 5 mg PO DAILY 90 days tamsulosin 0.4 mg PO BEDTIME 90 days triamcinolone acetonide 0.1% 1 appl topical BID Tobacco use date assessed: 07/18/25 Dental Screening Dental Screen Date: 07/18/25 Did you have a dental visit in the last 12 months?: Yes Did you have a dental problem in the last 6 months where you did not have access to dental care?: No Was dental information given to patient?: Patient has dentist HPI HPI Comments History of Present Illness Details The patient is a 64 year old male presenting with persistent throat pain. He recently completed a 3-day course of azithromycin 500 mg once per day. Despite the previous treatment, he continues to experience a biting pain. He reports worsening chest congestion and mild chills. [facility] Medical History Subclinical hyperthyroidism Sleep apnea Asthma GERD (gastroesophageal reflux disease) Tubular adenoma Abdominal pain Screening for prostate cancer Depression Fatigue Epidermal inclusion cyst Surgical History History of bunionectomy History of excision of epidermal inclusion cyst (~04/09/20) History of colonoscopy (~05/2011) History of esophagogastroduodenoscopy (EGD) (~05/2011) History of left knee surgery (~04/2016) History of hernia repair (~1990) History of removal of cyst (~04/2019) Family History Father History of hypertension History of heart disease History of diabetes mellitus Mother History of skin cancer Sister History of arthritis History of colon cancer History of breast cancer Mental health disorder Son No problems noted. Daughter No problems noted. Social History Housing: Apartment Alcohol intake: never Patient Tobacco Use Status: Former Tobacco user Tobacco use type: Cigarette e-Cigarette/Vaping Use: Never Used Second Hand Smoke Exposure: Yes service: No Current occupational status: unemployed and disabled Current occupation: left hand Cognitive needs: Yes Hearing needs: No Vision needs: No Questionnaire Thrive Questionnaire Date Thrive assessed: 07/18/25 I am a: Patient What is your living situation today?: I have a steady place to live Within the past 12 months, did the food you bought not last and you didn't have the money to get more?: I choose not to answer this question Within the past 12 months, did you worry whether your food would run out before you got money to buy more?: I choose not to answer this question Do you have trouble paying for medicines?: I choose not to answer this question Do you have trouble getting transportation to medical appointments?: I choose not to answer this question Do you have trouble paying your heating and electricity bill?: I choose not to answer this question Do you have trouble taking care of your child, family member or friend?: I choose not to answer this question Do you have trouble with day-to-day activities such as bathing, preparing meals, shopping, managing finances, etc.?: I choose not to answer this question Are you currently unemployed and looking for a job?: I choose not to answer this question Are you interested in more education?: I choose not to answer this question Currently or been in a relationship where the following occur: I choose not to answer THRIVE Score: 0 GUS-7 AMB Questionnaire GSU-7 Date GUS - 7 assessed: 01/01/25 Source: Developed by Drs. Red Duggan, Ashley Jhaveri, Humberto Barreto and colleagues, with an educational waylon from [employer]. Review of Systems Const Details: As per HPI. Physical exam (Primary Care) Vital Signs: Last Vital Signs Pulse 88 07/18/25 13:18 Resp 18 07/18/25 13:18 BP 118/56 L 07/18/25 13:18 Pulse Ox 95 07/18/25 13:18 Oxygen Delivery Method Room Air 07/18/25 13:18 BMI result Body Mass Index 29.3 Tobacco/Smoking Status: Tobacco use Status Tobacco use date assessed 07/18/25 07/18/25 13:26 Patient Tobacco Use Status Former Tobacco user 07/18/25 13:26 Tobacco use type Cigarette 07/18/25 13:26 e-Cigarette/Vaping Use Never Used 07/18/25 13:26 Thrive Assessment: Date of Thrive Assessment Date Thrive assessed 07/18/25 07/18/25 13:26 Currently or been in a relationship where the following occur: I choose not to answer Const Other: Pertinent findings are in BOLD GENERAL APPEARANCE NAD, activity normal for age, well developed/ well nourished, no cyanosis, pallor, or diaphoresis. EYES lids/conjunctiva normal. EARS/NOSE/THROAT Mucous membranes moist, nares normal, lips/teeth normal uvula midline without oral pharyngeal erythema, exudate or swelling TMs normal bilaterally. No lymphangitis/lymphedema. Enlarged erythematous tonsils. HEAD/NECK normocephalic atraumatic, no facial trauma, neck is supple. RESPIRATORY respiratory effort normal, speaks in full sentences, no tripod position, no accessory muscle use. Lungs clear to auscultation without rhonchi, wheezes, rales CARDIAC Regular rate and rhythm, no edema. ABDOMINAL Soft, ND/NT. No evidence of fluid wave. No pulsatile masses on exam, rebound tenderness, Campbell sign or pain over Mcburney's point. MUSCLES/EXTREMITIES No abnormal range of motion, no swelling. SKIN Warm, pink and dry. No rashes, dermatoses, petechiae or lesions. NEUROLOGICAL Speech is clear and appropriate. Normal level of consciousness. Gait and coordination are normal. 5/5 strength in all extremities. PSYCH Normal mood and affect. Judgement/competence is appropriate Coding Level of Care Code Est Pt Level 3 (50449) Diagnoses Acute pharyngitis J02.9 Time Spent (min) 20 Assessment & Plan Assessment & Plan (1) Acute pharyngitis: Code(s): J02.9 - Acute pharyngitis, unspecified Category: Medical Plan: - Although the patient completed a 3-day course of azithromycin, his tonsils remain enlarged and he is still symptomatic. - Prescribed Augmentin 1 gram twice daily for 5 days to complete an approximately 8-day course of antibiotics. - A new prescription for benzocaine/menthol lozenges will be sent for symptomatic relief. - Follow-up is scheduled in 10 days as per the patient request. Plan I examined the patient and noted that his tonsils are still enlarged despite having finished a 3 day course of azithromycin. To continue treatment, I prescribed a 5-day course of Augmentin 1g twice daily. I also sent a new prescription for benzocaine lozenges for symptomatic relief and informed him they are also available [id number]. I advised a follow-up appointment in 10 days, as per his request, to reassess his condition. Medications: New amoxicillin-pot clavulanate 875-125 mg 1 tab PO BID 10 tabs 0RF benzocaine-menthol 15-10 mg 1 allison mucous membrane .ever 4 hours PRN 15 ea 2RF sore throat Discontinued benzocaine Discontinued Reason: Duplicate 15 mg mucous membrane BID-TID PRN 18 ea 0RF sore throat
== END 2025-07-18 13:57 | disposition home or self-care (01) ==
LOC: HO.HMCH 13:04
PROVIDERS: PCP Internal Medicine; Visit Provider Internal Medicine
DX: J02.9 Acute pharyngitis, unspecified (principal)

== ENCOUNTER → 2025-07-18 13:03 | Outpatient (BNVA) | payer MEDICARE, MEDICAID, SELFPAY | PROVIDERS: PCP Internal Medicine; Visit Provider Internal Medicine | DX: J02.9 Acute pharyngitis, unspecified (principal); Z09 Encounter for follow-up examination after completed treatment for conditions other than malignant neoplasm | CPT/HCPCS: 99212 ==